=== PATIENT | female | born 1955 | race Caucasian/White ===

== ENCOUNTER 2022-11-24 18:08 | Observation (INO) | payer MEDICARE ==
[2022-11-24] MEDS ORDERED: IPRATROPIUM/ALBUTEROL 3 ML NEB INH STA (18:43)
--- NOTE | 2022-11-24 18:53 | XRAY Report ---
PROCEDURE: Chest 1 View X-Ray INDICATIONS: Cough/SOA TECHNIQUE: One view of the chest was acquired. COMPARISON: None. FINDINGS: Hyperexpanded and emphysematous lungs with apical pleural parenchymal scarring. No focal consolidatio n. No pleural effusion or pneumothorax. Normal heart size. IMPRESSION: No acute finding. Reviewed by: Keanu Benton MD on 11/24/2022 6:51 PM [facility] Approved by: Keanu Benton MD on 11/24/2022 6:51 PM [facility] Station ID: [id number]
--- NOTE | 2022-11-24 19:35 | ED Physician Documentation ---
PD HPI DYSPNEA - Stated complaint Stated Complaint: SOA, GREEN MUCUS - Chief complaint Chief Complaint: Resp - History obtained from History obtained from: Patient, Family - History of Present Illness Pain level max: 0 Pain level now: 0 Associated symptoms: Wheezing. No: Fever, Cough, Chest pain / discomfort, Palpitations, Diaphoresis, Bilateral edema - Additional information Additional information: 67-year-old female brought into the emergency department by her family. She has been sick, cough, congestion for the past 1 week. No fevers. Occasional chills. She has a history of COPD, smokes approximately 1/2 pack/day. Does not use oxygen at home. States increased work of breathing today. She states she does not use her inhalers regularly at home and has not been using them. Has become more difficult to smoke recently. Review of Systems Constitutional: denies: Fever, Chills Nose: reports: Rhinorrhea / runny nose. denies: Congestion Cardiac: denies: Chest pain / pressure, Palpitations Respiratory: reports: Dyspnea, Cough, Hemoptysis Skin: denies: Rash Musculoskeletal: denies: Neck pain, Back pain Neurologic: denies: Headache PD PAST MEDICAL HISTORY - Past Medical History Past Medical History: Yes Respiratory: COPD - Allergies Allergies/Adverse Reactions: Allergies Allergy/AdvReac Type Severity Reaction Status Date / Time "Antibiotics" AdvReac Emesis Uncoded 11/24/22 18:26 - Living Situation Living Situation: reports: With family Living Arrangement: reports: At home - Social History Does the pt smoke?: Yes Smoking Status: Current every day smoker - Family History Family history: reports: Non contributory PD ED PE NORMAL - Vitals Vital signs reviewed: Yes - General General: Alert and oriented X 3, No acute distress, Well developed/nourished - HEENT HEENT: PERRL, Moist mucous membranes - Cardiac Cardiac: RRR - Respiratory Respiratory: No respiratory distress, Other (Diminished breath sounds bilaterally, wheeze bilaterally) - Abdomen Abdomen: Soft, Non tender, Non distended - Derm Derm: Warm and dry - Extremities Extremities: No edema, No calf tenderness / cord - Neuro Neuro: Alert and oriented X 3 - Psych Psych: Normal mood, Normal affect Results - Vitals Vitals: Vital Signs - 24 hr 11/24/22 11/24/22 11/24/22 18:21 18:45 18:56 Temperature 36.4 C L Heart Rate 99 96 Respiratory 20 26 H Rate Blood Pressure 144/69 H 172/94 H O2 Saturation 86 L 82 L 99 If not protocol 4 : Oxygen Flow, liters/minute 11/24/22 11/24/22 11/24/22 19:26 19:28 19:30 Temperature Heart Rate 78 96 93 Respiratory 21 18 21 Rate Blood Pressure 142/90 H 158/83 H O2 Saturation 98 98 If not protocol 2 4 : Oxygen Flow, liters/minute 11/24/22 11/24/22 11/24/22 20:00 20:30 20:48 Temperature Heart Rate 94 83 89 Respiratory 20 20 19 Rate Blood Pressure 154/92 H 134/75 H O2 Saturation 98 97 If not protocol 4 4 : Oxygen Flow, liters/minute 11/24/22 11/24/22 21:00 21:30 Temperature Heart Rate 98 86 Respiratory 18 20 Rate Blood Pressure 136/79 H 154/90 H O2 Saturation 94 97 If not protocol 4 5 : Oxygen Flow, liters/minute Oxygen O2 Source Nasal cannula Oxygen Flow Rate 4 - Labs Labs: Laboratory Tests 11/24/22 11/24/22 11/24/22 18:29 18:55 18:55 WBC 9.0 RBC 4.51 Hgb 14.4 Hct 44.0 MCV 97.6 MCH 31.9 H MCHC 32.7 RDW 12.1 Plt Count 242 MPV 11.0 H Neut # (Auto) 7.7 H Lymph # (Auto) 0.7 L [place] # (Auto) 0.5 Eos # (Auto) 0.0 Baso # (Auto) 0.0 Absolute Nucleated RBC 0.00 Nucleated RBC % 0.0 Sodium 134 L Potassium 3.9 Chloride 92 L Carbon Dioxide 30 Anion Gap 12.0 BUN 16 Creatinine 0.5 Estimated GFR (MDRD) 122 Glucose 115 H Calcium 9.5 Nasal Adenovirus (PCR) NOT DETECTED Nasal B. parapertussis DNA (PCR) NOT DETECTED Nasal Coronavir 229E PCR NOT DETECTED Nasal Coronavir HKU1 PCR NOT DETECTED Nasal Coronavir NL63 PCR NOT DETECTED Nasal Coronavir OC43 PCR NOT DETECTED Nasal Enterovir/Rhinovir PCR NOT DETECTED Nasal Influenza B PCR NOT DETECTED Nasal Influenza A PCR NOT DETECTED Nasal Parainfluen 1 PCR NOT DETECTED Nasal Parainfluen 2 PCR NOT DETECTED Nasal Parainfluen 3 PCR NOT DETECTED Nasal Parainfluen 4 PCR NOT DETECTED Nasal RSV (PCR) NOT DETECTED Nasal B.pertussis DNA PCR NOT DETECTED Nasal C.pneumoniae (PCR) NOT DETECTED Roe Human Metapneumo PCR NOT DETECTED Nasal M.pneumoniae (PCR) NOT DETECTED Nasal SARS-CoV-2 (PCR) DETECTED A - Rads (name of study) Chest x-ray Radiology: Final report received, See rad report PD Medical Decision Making - ED course Complexity details: reviewed results, re-evaluated patient, considered differential, d/w patient, d/w family Reviewed Lab Results: CBC does not show any significant abnormalities. Chemistry shows a mildly low sodium, mildly low chloride. Her respiratory PCR is positive for COVID, negative for other findings. ED course: 67-year-old female who has COPD, rarely uses her inhaler. Presents with dyspnea and cough, positive for COVID. She is found to be hypoxic. She has been sick for over 1 week. She was given prednisone and nebulizer treatments. She is still hypoxic, with any movement off of oxygen she drops to 82 to 85% on room air. The patient is maintained on 4 L of oxygen at approximately 93 to 94%. The patient would be admitted to the hospital, but there are no beds available currently, therefore she will be boarded in the emergency department until an inpatient bed becomes available. No indication for antibiotics at this time. Patient signed out to the [facility] emergency department physician. Departure - Departure Disposition: 66 [facility] DC/Xfer Clinical Impression: COPD exacerbation, COVID, Hypoxia Condition: Stable
[2022-11-24] MEDS ORDERED: predniSONE 20 MG TABLET PO STA (19:54)
[2022-11-24 20:04] LABS: B. PARAPERTUSSIS- RESP PCR PAN NOT DETECTED; B. PERTUSSIS- RESP PCR PANEL NOT DETECTED; C. PNEUMONIAE- RESP PCR PANEL NOT DETECTED; CORONAVIRUS 229E-RESP PCR NOT DETECTED; CORONAVIRUS HKU1-RESP PCR NOT DETECTED; CORONAVIRUS NL63-RESP PCR NOT DETECTED; CORONAVIRUS OC43-RESP PCR NOT DETECTED; HUMAN METAPNEUMOVIRUS NOT DETECTED; INFLUENZA A- RESP PCR PANEL NOT DETECTED; INFLUENZA B - RESP PCR PANEL NOT DETECTED; M. PNEUMONIAE- RESP PCR PANEL NOT DETECTED; PARAINFLUENZA VIRUS 1 NOT DETECTED; PARAINFLUENZA VIRUS 2 NOT DETECTED; PARAINFLUENZA VIRUS 3 NOT DETECTED; PARAINFLUENZA VIRUS 4 NOT DETECTED; RHINOVIRUS/ENTEROVIRUS NOT DETECTED; RSV- RESP PCR PANEL NOT DETECTED; SARS-CoV-2 -RESP PCR PANEL DETECTED
[2022-11-24 20:05] LABS: BASOPHILS % (AUTO) 0.3 %; EOSINOPHILS % (AUTO) 0.1 %; HGB - HEMOGLOBIN 14.4 g/dL (12.0-16.0); LYMPHOCYTES # (AUTO) 0.7 10^3/uL (1.5-3.5); LYMPHOCYTES % (AUTO) 7.4 %; MEAN CORPUSCULAR HEMOGLOBIN 31.9 pg (27.0-31.0); MEAN CORPUSCULAR HGB CONC 32.7 g/dL (32.0-36.0); MEAN CORPUSCULAR VOLUME 97.6 fL (81.0-99.0); MONOCYTES # (AUTO) 0.5 10^3/uL (0.0-1.0); MONOCYTES % (AUTO) 5.9 %; NEUTROPHILS # (AUTO) 7.7 10^3/uL (1.5-6.6); NEUTROPHILS % (AUTO) 85.9 %; PLT - PLATELET COUNT 242 10^3/uL (130-450); RED BLOOD COUNT 4.51 10^6/uL (4.20-5.40); RED CELL DISTRIBUTION WIDTH 12.1 % (12.0-15.0)
[2022-11-24 20:11] LABS: CALCIUM 9.5 mg/dL (8.5-10.3); CREATININE 0.5 mg/dL (0.4-1.0); POTASSIUM 3.9 mmol/L (3.5-5.0)
[2022-11-24] MEDS ORDERED: ALBUTEROL NEB 2.5 MG/3 ML INH STA (20:25)
[2022-11-25] MEDS ORDERED: SODIUM CHLORIDE FLUSH 0.9% 10 ML SYRINGE IVP PRN (11:36)
[2022-11-25] MEDS ORDERED: oxyCODONE 5 MG TABLET PO PRN (11:36)
[2022-11-25] MEDS ORDERED: ONDANSETRON 4 MG/2 ML VIAL IVP PRN (11:36)
[2022-11-25] MEDS ORDERED: ACETAMINOPHEN 325 MG TABLET PO PRN (11:36)
[2022-11-25] MEDS ORDERED: ONDANSETRON ODT 4 MG TABLET TL PRN (11:36)
[2022-11-25] MEDS ORDERED: CHERRY SYRUP 10 ML UDC PO ONE (11:38)
[2022-11-25] MEDS ORDERED: IPRATROPIUM/ALBUTEROL 3 ML NEB INH PRN (11:38)
--- NOTE | 2022-11-25 11:41 | HISTORY & PHYSICAL EXAMINATION ---
Chief Complaint - Chief Complaint Chief Complaint: Shortness of breath History of Present Illness - Admitted From Admitted From:: home - History Obtained From Records Reviewed: [facility] History obtained from: patient and son at the bedside Exam Limitations: none - History of Present Illness HPI Comment/Other: 67-year-old white female who is a smoker and has a history of COPD. She has smoked since she was a teenager in high school. Usually half a pack per day. 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 She regards her self is healthy ev en though she slowed down significantly over the last few years. She has a history of pneumonia a few years ago, and that the only time she can remember being sick from her lungs. Her doctor gave her antibiotics and a handheld inhaler. She does not take oxygen on a regular basis. Nor does she take a handheld inhaler on a regular basis. She does not remember being told that she had emphysema. Her primary care provider has not done pulmonary function studies to quantify the severity of illness.She is able to dress herself, feed herself. But she no longer cleans her own home. It is too taxing. She is able to walk down the street and back and she will do that several times a day to exercise her self but it is a short distance on flat ground. If it were on a hill, she couldn't do it. Starting about 3 weeks ago she felt like she was "coming down with something". Unusual fatigue. Lack of energy. But no fever, no chills, no change in cough or daily phlegm. No sore throat, no runny nose. Yesterday night, she presented to the ER with shortness of breath that is worsening over the last few days as well as a productive cough with green phlegm. She came in by private vehicle and was seen in the emergency room with a temperature of 36.4, heart rate 99, blood pressure 144/69. Respirations 20 and she is 86% on room air. She was evaluated by the ER provider and found that she had COPD exacerbation with positive COVID status. Her chest x-ray has no acute findings. She is h yperexpanded with emphysematous lungs and apical pleural scarring. Overnight in the emergency room, she required 4 L nasal cannula. This morning she is down to 2 L nasal cannula. We did not have any bed availability do to staffing shortage, and the patient was in the emergency room overnight. She has received prednisone 40 mg p.o. in the ER. And she is received DuoNeb once, and albuterol once. She feels like she is improved but is worried about the new hypoxemia. She gets short of breath with exertion. But she describes that it is a chronic problem. Cough is a little bit better and she is producing less phlegm. As such I will be placing the patient in observation status. I have discussed the case at length with the ER provider on today. I am hoping to stabilize her nebulizer status, oxygen status, and be able to send her home. With COVID- positive status I will give her paxlovid. She is amenable to that. Son is at the bedside and endorses her story. 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 Dad in his late 40s or early 50s of complications of chronic alcohol abuse. Sister is alive, well, and healthy without any major medical issues. 1 son is healthy, no major medical issues and they live together Living arrangement: At home Living Situation: With family Social History Notes: Smoker of 1/2 pack/day since her teen years. She has no history of alcohol abuse. No history of recreational substance abuse. She lives in her own home with her son. - POLST Patient has POLST: No POLST Status: Full Code Meds/Allgy - Home Medications Home Medications: Ambulatory Orders Medication Instructions Recorded Confirmed Acetaminophen [Tylenol] 500 mg PO Q8HR 11/25/22 11/25/22 Albuterol Sulf [Ventolin Hfa 1 - 2 puffs INH Q4HR PRN #18 gm 11/25/22 Inhaler] Nirmatrelvir/Ritonavir [Paxlovid 1 each PO UD #1 packet 11/25/22 150-100 mg Pack (Eua)] dexAMETHasone [Decadron] 6 mg PO 0800 9 Days #13.5 tablet 11/25/22 - Allergies Allergies/Adverse Reactions: Allergies Allergy/AdvReac Type Severity Reaction Status Date / Time "Antibiotics" AdvReac Emesis Uncoded 11/24/22 18:26 Review of Systems - Constitutional Constitutional: reports: Fatigue, Malaise, Weakness, Poor appetite. denies: Night sweats, Weight gain, Weight loss - Eyes Eyes: reports: Blurred vision, Vision loss. denies: Pain, Irritation, Amaurosis, Corrective lenses - Ears, Nose & Throat Ears, Nose & Throat: reports: Hearing loss, Nasal obstruction, Nasal congestion, Postnasal drainage. denies: Hearing aids, Tinnitus, Vertigo - Cardiovascular Cariovascular: reports: Exertional dyspnea, Decr. exercise tolerance. denies: Irregular heart rate, Palpitations, Chest pain, Edema, Lightheadedness, Syncope - Respiratory Respiratory: reports: Cough, Sputum production, Wheezing, SOB at rest, SOB with exertion. denies: Snoring, Hemoptysis, Orthopnea - Gastrointestinal Gastrointestinal: reports: Abdominal distention (Chronic if she eats the wrong thing. Associated with her celiac disease.). denies: Abdominal pain, Constipation, Diarrhea, Change in bowel habits - Genitourinary Genitourinary: denies: Dysuria, Frequency, Urgency, Hematuria - Musculoskeletal Musculoskeletal: reports: Back pain, Stiffness, Joint pain. denies: Muscle jonathan n, Limited range of motion, Muscle weakness, Gout - Integumentary Integumentary: denies: Rash, Pruritis, Lesions, Dryness - Neurological Neurological: denies: General weakness, Focal weakness, Headache, Dizziness, Memory problems, Pre-existing deficit, Abnormal gait, Seizures, Incoordination - Psychiatric Psychiatric: denies: Depression, Anxiety, Suicidal, Hallucinations - Endocrine Endocrine: reports: Intolerance to cold. denies: Polyuria, Polydypsia, Polyphagia - Hematologic/Lymphatic Hematologic/Lymphatic: denies: Anemia, Bruising, Petechiae, Blood clots Prior Level of Functionality: She is not driving recently but more because her car is old and she is afraid is going to breakdown. She cannot clean her house because she does not have the endurance to do it. But she dresses her self, feed herself, does her own laundry. Her son does the rest of the stuff in the house. She does not have any durable medical equipment Exam - Vital Signs Reviewed Vital Signs: Yes Vital Signs: Vital Signs x48h Pulse Resp BP Pulse Ox O2 Flow Rate 11/25/22 11:00 90 20 141/76 H 95 11/25/22 10:55 21 88 L 11/25/22 10:50 84 L 11/25/22 10:30 101 H 19 126/77 91 L 11/25/22 10:00 100 23 149/79 H 91 L 2 11/25/22 09:30 65 12 111/71 99 2 11/25/22 09:00 66 12 120/109 H 100 2 11/25/22 08:30 66 12 119/80 99 2 11/25/22 08:00 66 12 104/64 98 2 11/25/22 07:30 67 12 115/64 98 2 11/25/22 06:37 66 13 125/67 99 3 11/25/22 05:48 92 20 137/76 H 96 3 11/25/22 04:52 72 15 124/71 99 3 11/25/22 04:00 71 15 143/81 H 98 3 - Physical Exam General Appearance: positive: Alert, Mild distress (respiratory with pursed lip breathing and tachypnea if she gets agitated, she really doesn't want to be here), Other (thin, reduced muscle mass, pursed lip breathing, well groomed) Eyes Bilateral: positive: PERRL, EOMI ENT: positive: No signs of dehydration Neck: positive: No JVD, Lymphadenopathy (R) (shotty), Lymphadenopathy (L) (shotty). negative: Stiff neck Respiratory: positive: Wheezes, Other (At rest, comfortable. When she starts speaking to me to answer questions, becomes mildly tachypneic, and pursed lip breathing increases. She is tripoding) Cardiovascular: positive: Regular rate & rhythm, Systolic murmur, Other (She has a faint right ventricular lift). negative: Gallop/S4, Friction rub Peripheral Pulses: positive: 1+ Abdomen: positive: Non-tender, No organomegaly, Nml bowel sounds, No distention Skin: positive: Warm, Dry, Other (The palms of her hand and fingertips have rubor and plethora with clubbing of her fingernails) Extremities: positive: Non-tender, Full ROM Neurologic/Psychiatric: positive: Oriented x3, CN's nml (2-12) (Mildly to moderately deaf. The mask in place for me really inhibits her hearing me), Motor nml Sepsis Event Note (H) - Evaluation Current Stage of Sepsis: Ruled out Conclusion/Plan - Problem List (1) COPD exacerbation Conclusion/Plan: She appears to have compensated COPD in the long run. There is been a subtle worsening in her description over the last few months if not year. But she was able to walk her usual exercise without up till about 3 weeks ago. There is been a sudden decompensation in the last few days and I would think that it was from COVID-positive status. She has minimal URI symptomatology, and no infiltrate on chest x-ray. She does not take long-acting bronchodilators much less short acting bronchodilators. At this time I think her sudden deteri oration is most likely due to to COVID infection. She describes a well compensated status prior to this and I am anticipating she will go back to that status when she is through this acute illness. Plan: Observation status Start with simple nebulizers. I hope to continue those in the outpatient s etting with hand-held nebulizers Decadron will be given for 10 days to help with COPD as well as COVID status I would ask her primary care provider to order pulmonary function studies to quantify the disease status. That is of course assuming she even wants intervention or treatment. That can be discussed with her provider as well. I have asked her to stop smoking (2) COVID Conclusion/Plan: While she would like to receive nebulizers while in the hospital, and is willing to do steroids, she does not know if she will stay much longer than today. She is already feeling better and having less and less oxygen need. However she seems to have plateaued at 2 L. She is amenable to starting outpatient COVID treatment with paxlovid. I will also add the Decadron as mentioned above. Later this afternoon, if oxygen requirements remain stable, she will be discharged home. (3) Hypoxia Conclusion/Plan: Right now she is stable on 2 L nasal cannula. At discharge, if she is still hypoxic, I would recommend she go home on oxygen. She is amenable to that and is actually asking us to go home with therapy rather than stay in the hospital. I will ask for oxygen desat study. - Lab Results Lab results reviewed: Yes Fish Bones: 11/24/22 18:55 11/24/22 18:55 - Diagnostic Imaging Results Diagnostic Imaging Results: positive: Final report reviewed Diagnostic Imaging Results Comments: Chest x-ray is with hyperexpanded and emphysematous lungs with apical pleural- parenchymal scarring, no focal consolidation, no pleural effusion, no pneumothorax. Normal heart size Core Measures - Anticipated LOS I expect patient to be DC'd or transferred within 96 hours.: Yes - DVT/VTE - Prophylaxis VTE/DVT Device ordered at admit?: No Not Ordered - Low Risk: Very low risk VTE/DVT Prophylaxis med ordered at admit?: No Not Ordered - Medical Reason: Not indicated
--- NOTE | 2022-11-25 11:51 | ED Physician Documentation ---
ED Addendum - Addendum Addendum: Patient was signed out by overnight physician. Has tested positive for COVID and is requiring oxygen. Does have COPD.Plan to reevaluate this morning to see if we can wean the oxygen requirements. 1050 - Patient is still requiring oxygen and has desatted to 85% on room air. Discussed with Dr. Rodriguez with the hospitalist service who will see the patient. May be able to discharge home with home oxygen. Departure - Departure Disposition: ED Place in Observation Clinical Impression: COPD exacerbation, COVID, Hypoxia Condition: Stable
[2022-11-25] MEDS ORDERED: DEXAMETHASONE 10 MG/ML VIAL PO SCH (12:00)
--- NOTE | 2022-11-25 12:03 | Discharge Plan ---
Discharge Plan Problem Reviewed?: Yes Disposition: Home, Self Care Condition: Fair Prescriptions: Albuterol Sulf [Ventolin Hfa Inhaler] 1 - 2 puffs INH Q4HR PRN #18 gm PRN Reason: Shortness Of Air/Wheezing dexAMETHasone [Decadron] 6 mg PO 0800 9 Days #13.5 tablet Nirmatrelvir/Ritonavir [Paxlovid 150-100 mg Pack (Eua)] 1 each PO UD #1 packet Diet: Regular Activity Restrictions: Activity as Tolerated Shower Restrictions: No Driving Restrictions: Yes (no driving ) Health Concerns: You are a half a pack per day cigarette smoker that started smoking in your high school life. As time is gone on you have developed emphysema. You have physically slowed down somewhat in the last year or so but you are still able to take care of your self. 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 You do have some shortness of breath and some coughing. 3 weeks ago you became more short of breath and had increasing cough. And in the last few days it is enough that you came to the emergency room. Your chest x-ray does not have pneumonia. But it does have severe changes of emphysema. You do need oxygen because your oxygen was low. And you do have COVID-positive status. After giving you inhaled bronchodilators to help you breathe, and some oxygen you feel stable enough to go home, you woul d like to go home with oxygen. And we will continue to give you therapy for COVID with pills that you can take at home. Plan of Treatment: 1. Oxygen by nasal cannula tubing to 2 L/min. Because of your emphysema, we do not know if this is something that you will need indefinitely or that you can come off. Once you stop feeling ill from COVID, and have completed your th erapy, please see your primary care provider in follow-up to see if you still need oxygen. 2. Please ask your primary care provider to consider doing something called pulmonary function studies with a diffusion capacity to see and quantify how severe your emphysema is. 3. Please stop smoking. Over the course of your life it has given you emphysema. 4. Please ask your primary care provider if you are a candidate for long-term bronchodilator therapy with an inhaler that you would take once a day. 5. You have been sent home with 2 medications for COVID. 1 is a preset pack of pills called paxlovid. Just follow the instructions on the package. You will take this for 5 days. The second is a steroid pill that helps reduce inflammation from COVID. You will take the steroid pill (1-1/2 tablets) once a day for total of 10 days. You already received 1 dose in the emergency room and you will take the next 9 days at home. Care Goals: To understand more about emphysema and see if she can feel better. She is interested in trying home cardiopulmonary rehab. Assessment: Patient is alert, oriented. She makes her own decisions. Her son is in the room with her as her advocate and endorses that mom is still in charge of her health. No Smoking: If you smoke, Please STOP! Call for help. Follow-up with: Александр Mathews ND [Primary Care Provider] -
[2022-11-25 15:22] VITALS: BP 148/75
[2022-11-25] MEDS ORDERED: SODIUM CHLORIDE FLUSH 0.9% 10 ML SYRINGE IVP SCH (17:00)
--- NOTE | 2022-11-25 18:42 | DISCHARGE SUMMARY ---
Discharge Summary Admit Date: 11/25/22 Discharge Date: 11/25/22 Discharging Provider: Jess Rodriguez MD Primary Care Provider: Александр Mathews MD Code Status: Attempt Resuscitation Condition at Discharge: Fair - DIAGNOSES Discharge Diagnoses with Status of Each Condition: 1. COPD exacerbation 2. COVID 3. Hypoxia - HPI History of Present Illness: Patient in hospital less than 24 hours. Please see dictated history and physical - HOSPITAL COURSE Hospital Course: She quickly turned the corner. Oxygen level came down to 2 L nasal cannula to saturate adequately. Her shortness of breath and wheezing improved. She did not want to stay in the hospital to have her oxygen level requirement come down to room air saturations that were adequate. As such we negotiated that she could go home on paxlovid and Decadron. I have started her on oxygen 2 L nasal cannula after desat study. At room air, at rest she was 84%. She required 2 L nasal cannula to bring O2 sat up to 92% at rest. With ambulation, walking 20 feet, she required 4 L to maintain O2 sat at 94%. As such she is being sent claudine e with oxygen for COPD with hypoxia until she recovers from COVID. I am hoping that she does not need oxygen permanently. She is being sent home with Paxlovid and Decadron. At discharge she is an alert oriented lady who is still tripoding as she sits up to speak to me. Heart rate 85. Blood pressure 148/75. 19 respiratory rate. 96% on 2 L. She appears very thin, nearly cachectic. Pursed lip breathing. Rubor of hands. Clubbing of fingertips. Prolonged and exhalation but no wheezing. A regular rate and rhythm. Extremities without edema. I have asked her to see her primary care provider in follow-up. I am recommending that she get pulmonary function studies with DLCO to quantify the severity of her emphysema. It is unclear if she may have baseline hypoxia that worsened with COVID. I have also asked her to start establishing some care goals. In the face of a diagnosis of emphysema what are her goals with treatment, aggressiveness of treatment, advance care planning, and future caregiving needs. - ALLERGIES Allergies/Adverse Reactions: Allergies Allergy/AdvReac Type Severity Reaction Status Date / Time "Antibiotics" AdvReac Emesis Uncoded 11/24/22 18:26 - MEDICATIONS Home Medications: Ambulatory Orders Medication Instructions Recorded Confirmed Acetaminophen [Tylenol] 500 mg PO Q8HR 11/25/22 11/25/22 Albuterol Sulf [Ventolin Hfa 1 - 2 puffs INH Q4HR PRN #18 gm 11/25/22 Inhaler] Nirmatrelvir/Ritonavir [Paxlovid 1 each PO UD #1 packet 11/25/22 150-100 mg Pack (Eua)] dexAMETHasone [Decadron] 6 mg PO 0800 9 Days #13.5 tablet 11/25/22 - LABS Result Diagrams: 11/24/22 18:55 11/24/22 18:55 - SEPSIS Current Stage of Sepsis: Ruled out
[2022-11-26] MEDS ORDERED: CHERRY SYRUP 10 ML UDC PO SCH (09:00)
== END 2022-11-25 15:23 | disposition home or self-care (01) ==
LOC: ED 18:08 → OBS 11-25 11:36
PROVIDERS: ADMIT Specialist; ATTEND Specialist
DX: J43.9 Emphysema, unspecified (principal); U07.1 COVID-19; R09.02 Hypoxemia; Z20.822 Contact with and (suspected) exposure to COVID-19; F17.210 Nicotine dependence, cigarettes, uncomplicated
CPT/HCPCS: 36415; 71045; 80048; 85025; 87633; 94640; 94761; 99284; 99285; A9270; G0378; J7512

== ENCOUNTER 2023-10-11 21:24 | Emergency (ER) | payer MEDICARE ==
[2023-10-11] MEDS ORDERED: BUDESONIDE 0.5 MG/2 ML NEB INH STA (22:03)
--- NOTE | 2023-10-11 22:04 | ED Physician Documentation ---
PD HPI DYSPNEA - Stated complaint Stated Complaint: SOA - Chief complaint Chief Complaint: Resp - History obtained from History obtained from: Patient, Family (son) - Additional information Additional information: 68yF with pmh anxiety, copd, daily smoker, p/w soa since having covid in november of this year. patient states she saw her pcp a couple weeks ago and had antibiotics prescribed for productive cough. she is not currently having fever or hemoptysis but does endorse intermittent cough, increased stress and some soa. she had a steroid inhaler prescribed by her doctor today but [facility] can't fill it till tomorrow which causes her anxiety. 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 HEENT: Chronic vision loss, Chronic hearing loss Musculoskeletal: Osteoarthritis, Chronic back pain, Other - Past Surgical History Past Surgical History: No - Present Medications Home Medications: Ambulatory Orders Medication Instructions Recorded Confirmed Acetaminophen [Tylenol] 500 mg PO Q8HR 11/25/22 11/25/22 Albuterol Sulf [Ventolin Hfa 1 - 2 puffs INH Q4HR PRN #18 gm 11/25/22 Inhaler] Nirmatrelvir/Ritonavir [Paxlovid 1 each PO UD #1 packet 11/25/22 150-100 mg Pack (Eua)] dexAMETHasone [Decadron] 6 mg PO 0800 9 Days #13.5 tablet 11/25/22 - Allergies Allergies/Adverse Reactions: Allergies Allergy/AdvReac Type Severity Reaction Status Date / Time "Antibiotics" AdvReac Emesis Uncoded 10/11/23 21:32 - Social History Does the pt smoke?: Yes Smoking Status: Current every day smoker Does the pt drink ETOH?: No Does the pt have substance abuse?: No - Immunizations Immunizations are current?: Yes - POLST Patient has POLST: No POLST Status: Full Code PD ED PE NORMAL - Vitals Vital signs reviewed: Yes - General General: Alert and oriented X 3, No acute distress, Well developed/nourished - HEENT HEENT: Atraumatic, PERRL, EOMI, Moist mucous membranes, Pharynx benign - Cardiac Cardiac: RRR - Respiratory Respiratory: No respiratory distress, Clear bilaterally, Other (no increased wob) - Abdomen Abdomen: Non tender, Non distended - Derm Derm: Normal color, Warm and dry - Psych Psych: Other (anxious mood and affect) Results - Vitals Vitals: Vital Signs - 24 hr 10/11/23 21:32 Temperature 36.5 C Heart Rate 90 Respiratory 16 Rate Blood Pressure 158/83 H O2 Saturation 94 Oxygen O2 Source Room air PD Medical Decision Making - ED course ED course: 68yF with pmh copd, anxiety, smoker, presents for medical evaluation after unable to fill her steroid inhaler rx today. she is requesting a dose of inhaled steroid. Her lung sounds are clear and she is well appearing aside from intermittent mild nonproductive cough. RT administered budesonide inhaler to good effect. plan to f/u with her pcp next week. Her rx should be available at [facility] tomorrow . return precautions discussed and smoking cessation counseling provided. Departure - Departure Disposition: 01 Home, Self Care Clinical Impression: COPD (chronic obstructive pulmonary disease) Condition: Stable Instructions: COPD Dc Comments: You were seen in the emergency department for medical evaluation and steroid inhaler administration. 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 Please follow-up with your primary care provider and return to the emergency department if you have any new or worsening symptoms or other concerns. Forms: PCP List
[2023-10-11 22:39] VITALS: BP 137/90
[2023-10-11 23:14] VITALS: O2SAT 98
== END 2023-10-11 23:07 | disposition home or self-care (01) ==
LOC: ED 21:24
DX: J44.9 Chronic obstructive pulmonary disease, unspecified (principal); F17.200 Nicotine dependence, unspecified, uncomplicated
CPT/HCPCS: 94640; 99283; J7626

== ENCOUNTER 2023-11-05 16:16 | Emergency (ER) | payer MEDICARE ==
[2023-11-05 16:44] LABS: BASOPHILS % (AUTO) 0.6 %; EOSINOPHILS % (AUTO) 0.6 %; HCT - HEMATOCRIT 42.3 % (37.0-47.0); HGB - HEMOGLOBIN 13.7 g/dL (12.0-16.0); LYMPHOCYTES % (AUTO) 15.1 %; MEAN CORPUSCULAR HEMOGLOBIN 32.1 pg (27.0-31.0); MEAN CORPUSCULAR HGB CONC 32.4 g/dL (32.0-36.0); MEAN CORPUSCULAR VOLUME 99.1 fL (81.0-99.0); MEAN PLATELET VOLUME 9.6 fL (7.9-10.8); MONOCYTES # (AUTO) 0.5 10^3/uL (0.0-1.0); MONOCYTES % (AUTO) 8.3 %; NEUTROPHILS # (AUTO) 4.7 10^3/uL (1.5-6.6); NEUTROPHILS % (AUTO) 75.2 %; PLT - PLATELET COUNT 260 10^3/uL (130-450); RED BLOOD COUNT 4.27 10^6/uL (4.20-5.40); RED CELL DISTRIBUTION WIDTH 12.4 % (12.0-15.0); WHITE BLOOD COUNT 6.3 x10^3/uL (4.8-10.8)
--- NOTE | 2023-11-05 16:48 | ED Physician Documentation ---
PD HPI CHEST PAIN - Stated complaint Stated Complaint: CHEST PX/ANXIETY - Chief complaint Chief Complaint: Cardiac - History obtained from History obtained from: Patient - Additional information Additional information: 68-year-old female with history of COPD and anxiety presents with chest tightness and reported anxiety. She states symptoms started this morning when she went outside and it was "very cold" and since then she has had chest tightness and mild shortness of breath. It is not worse with exertion. She has not had any increased cough, no sputum production, no fever or chills. She den ies any lower extremity swelling or difficulty laying flat. She states she does not have chest pain but just feels like her lungs are tight. She reports a lot of anxiety, and Has a longstanding history of anxiety, previously was on paxlovid for quite a while and had a difficult time titrating off that it is unclear why she stopped it she has not been on any and anxiety medicine for quite some time. She has taken benzodiazepines in the past and states that she did not like the way that they made her feel, she felt somewhat more anxious after taking them. She is not currently seeing a counselor or therapist but her family member has recently arranged for her to see 1. She also does not have a primary care provider though does go and see a teletypesetter who apparently has been trying to manage her COPD. The patient does not have any prescription coverage however so cannot afford anything other than albuterol for her COPD though other MDIs have been prescribed in the past. She does have long history of smoking and current smokes 1ppd. Review of Systems Constitutional: reports: Reviewed and negative Eyes: reports: Reviewed and negative Ears: reports: Reviewed and negative Nose: reports: Reviewed and negative Throat: reports: Reviewed and negative Cardiac: reports: Reviewed and negative Respiratory: reports: Dyspnea, Cough, Wheezing GI: reports: Reviewed and negative : reports: Reviewed and negative Skin: reports: Reviewed and negative Musculoskeletal: reports: Reviewed and negative Neurologic: reports: Reviewed and negative Psychiatric: reports: Anxiety. 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 HEENT: Chronic vision loss, Chronic hearing loss Psych: Anxiety Musculoskeletal: Osteoarthritis, Chronic back pain, Other Derm: None - Past Surgical History Past Surgical History: Yes HEENT: Tonsil/Adenoidectomy - Present Medications Home Medications: Ambulatory Orders Medication Instructions Recorded Confirmed Acetaminophen [Tylenol] 500 mg PO Q8HR 11/25/22 11/25/22 Albuterol Sulf [Ventolin Hfa 1 - 2 puffs INH Q4HR PRN #18 gm 11/25/22 Inhaler] Nirmatrelvir/Ritonavir [Paxlovid 1 each PO UD #1 packet 11/25/22 150-100 mg Pack (Eua)] dexAMETHasone [Decadron] 6 mg PO 0800 9 Days #13.5 tablet 11/25/22 Tiotropium [place] [Spiriva 1 puffs INH DAILY 30 Days #30 each 11/05/23 Handihaler] hydrOXYzine pamoate [Hydroxyzine 25 mg PO Q8H PRN #30 cap 11/05/23 Pamoate] - Allergies Allergies/Adverse Reactions: Allergies Allergy/AdvReac Type Severity Reaction Status Date / Time "Antibiotics" AdvReac Emesis Uncoded 11/05/23 16:20 - Social History Does the pt smoke?: Yes Smoking Status: Current every day smoker Does the pt drink ETOH?: No Does the pt have substance abuse?: No - Immunizations Immunizations are current?: Yes - POLST Patient has POLST: No POLST Status: Full Code PD ED PE NORMAL - Vitals Vital signs reviewed: Yes - General General: Alert and oriented X 3, No acute distress, Well developed/nourished - HEENT HEENT: Atraumatic, Moist mucous membranes - Neck Neck: Supple, no meningeal sign, No adenopathy - Cardiac Cardiac: RRR, No murmur - Respiratory Respiratory: No respiratory distress, Other (few minor exp wheezes w/ prolonged exp phase) - Abdomen Abdomen: Normal bowel sounds, Soft, Non tender, Non distended - Derm Derm: Normal color, Warm and dry, No rash - Neuro Neuro: Alert and oriented X 3 Eye Opening: Spontaneous Motor: Obeys Commands Verbal: Oriented GCS Score: 15 - Psych Psych: Normal mood, Other (anxious affect) Results - Vitals Vitals: Vital Signs - 24 hr 11/05/23 11/05/23 11/05/23 16:20 16:40 16:53 Temperature 36.4 C L 36.6 C Heart Rate 92 91 86 Respiratory 20 15 22 Rate Blood Pressure 139/84 H 148/83 H 148/86 H O2 Saturation 96 98 98 11/05/23 19:07 Temperature 36.5 C Heart Rate 81 Respiratory 26 H Rate Blood Pressure 126/76 O2 Saturation 94 Oxygen O2 Source Room air - EKG (time done) No standard instances EKG releavant findings:: EKG personally interpreted by author of this note. Relevant findings are: Rate: Rate (enter#) (87) Rhythm: NSR [place]: Normal Intervals: Normal SD QRS: LVH Ischemia: Normal ST segments Computer interpretation: Agree with computer - Labs Labs: Laboratory Tests 11/05/23 11/05/23 16:35 16:35 WBC 6.3 RBC 4.27 Hgb 13.7 Hct 42.3 MCV 99.1 H MCH 32.1 H MCHC 32.4 RDW 12.4 Plt Count 260 MPV 9.6 Neut # (Auto) 4.7 Lymph # (Auto) 1.0 L [place] # (Auto) 0.5 Eos # (Auto) 0.0 Baso # (Auto) 0.0 Absolute Nucleated RBC 0.00 Nucleated RBC % 0.0 Sodium 135 Potassium 3.9 Chloride 99 L Carbon Dioxide 30 Anion Gap 6.0 BUN 16 Creatinine 0.6 Estimated GFR (MDRD) 99 Glucose 101 Calcium 9.7 Total Bilirubin 0.4 AST 17 ALT 16 Alkaline Phosphatase 69 Troponin I High Sens 5.3 Total Protein 7.4 Albumin 4.5 Globulin 2.9 Albumin/Globulin Ratio 1.6 Lipase 52 PD Medical Decision Making - ED course Complexity details: reviewed old records, reviewed results, re-evaluated patient, considered differential, d/w patient, d/w family ED course: 68-year-old female presents with chest tightness today as well as patient reported anxiety. She is well-appearing on initial physical exam, lungs have a few scattered expiratory wheezes minor and she is in no respiratory distress. She has a anxious affect but otherwise stable physical exam. Differentials included COPD exacerbation, CHF, ACS, viral URI, anxiety, and less likely PE. Workup today generally reassuring, her labs are stable including high- sensitivity troponin which is negative, her EKG shows no acute ischemic changes, chest x-ray shows possible mild pulmonary edema. I discussed these findings with patient and she was reassured, I do not think at this point she needs any treatment for this possible mild pulmonary edema but have encouraged her to establish primary care and they can do additional workup as outpatient including echocardiogram. She we will continue her as needed albuterol and I have also prescribed Spiriva for maintenance though it is unclear if the patient will be able to get this without any insurance. She is planning to try to get care through a [place] that she belongs to which may open some medical benefits to her so I have strongly urged her to do so to try to get medication insurance. In regards to her anxiety, we had a long discussion about treatment for this and patient does not want to do any benzodiazepines or SSRIs. She did receive 12.5 mg of IV Benadryl here with improvement in this to give an additional 12.5 mg before she left. She did feel like this helped and she did not have any adverse effects with that thus far so I talked to her about trying Hydroxyzine as an outpatient as this may help her sleep and may provide some anxiety relief. She was cautioned on the potential side effects of this medication however. I will discharge her home with this and her COPD medications and she is going to establish care with a counselor in the coming days. I do think she is stable for discharge home and I discussed return precautions if any new or worsening symptoms. Departure - Departure Disposition: 01 Home, Self Care Clinical Impression: Anxiety COPD (chronic obstructive pulmonary disease) Qualifiers: COPD type: unspecified COPD Qualified Code(s): J44.9 - Chronic obstructive pulmonary disease, unspecified Instructions: COPD Dc Prescriptions: hydrOXYzine pamoate [Hydroxyzine Pamoate] 25 mg PO Q8H PRN #30 cap PRN Reason: anxiety or sleep Tiotropium [place] [Spiriva Handihaler] 1 puffs INH DAILY 30 Days #30 each Comments: Chuyita, your labs and ekg today are stable. I think your symptoms are a combination of your COPD and anxiety. Please try to establish a primary care provider to manage your COPD and assist with the management of your anxiety and for routine health maintenance. I think it is a great idea as well for you to see a counselor or mental health provider to help with your anxiety. I have also given you a medication called hydroxyzine which can help with mild anxiety symptoms and can help you sleep. It may make you sleepy so do not use if you are going to drive or leave the home. I have also recommended that you start taking a daily medication for your COPD. I have given you inhaler to use daily and then you use your albuterol only as needed. If this medication is not cost effective, please asked the pharmacist if there are Alternatives and they can call me here tomorrow between the hours of 11 AM and 10 PM to discuss changing the medication. I also would like you to talk with your teletypesetter about methylated forms of magnesium and B vitamins which may help you better absorbed them and improve the management of your anxiety. I do think you should take magnesium and it is okay to start with the type that you have right now. It may give you some GI upset but this typically improves with time. Your x-ray did show some very mild pulmonary edema. This is a common finding on x-rays and does not need immediate treatment in your case but once you establish primary care, they can order an outpatient echocardiogram or an ultrasound of your heart to further evaluate this. If you have worsening symptoms, please return to the ER as needed. Forms: PCP List Discharge Date/Time: 11/05/23 19:08
[2023-11-05 17:00] LABS: TROPONIN I HIGH SENSITIVITY 5.3 ng/L (2.3-14.8)
[2023-11-05 17:02] LABS: ALBUMIN 4.5 g/dL (3.2-5.5); ALBUMIN/GLOBULIN RATIO 1.6 (1.0-2.2); BILIRUBIN,TOTAL 0.4 mg/dL (0.2-1.0); CALCIUM 9.7 mg/dL (8.5-10.3); CREATININE 0.6 mg/dL (0.6-1.3); POTASSIUM 3.9 mmol/L (3.5-4.5); TOTAL PROTEIN 7.4 g/dL (6.4-8.9)
[2023-11-05] MEDS ORDERED: diphenhydrAMINE INJ 50 MG/ML VIAL IVP STA ×2 (17:30→18:29)
--- NOTE | 2023-11-05 17:49 | XRAY Report ---
PROCEDURE: Chest 1V INDICATIONS: Chest Pain TECHNIQUE: One view of the chest was acquired. COMPARISON: 11/24/2022 FINDINGS: Surgical changes and devices: None. Lungs and pleura: No pleural effusions or pneumothorax. Mild generalized interstitial prominence can be seen. Mediastinum: Mediastinal contours appear normal. Heart size is normal. Calcification is seen of th e aortic arch. Bones and chest wall: No suspicious bony lesions. Overlying soft tissues appear unremarkable. IMPRESSION: Mild generalized interstitial prominence is seen, which appears mildly worse on the prior examination . Please consider mild pulmonary edema. Reviewed by: Chester Doss MD on 11/05/2023 4:48 PM [facility] Approved by: Chester Doss MD on 11/05/2023 4:48 PM [facility] Station ID: [id number]
[2023-11-05 19:10] VITALS: BP 126/76; O2SAT 94
== END 2023-11-05 19:08 | disposition home or self-care (01) ==
LOC: ED 16:16
DX: J44.9 Chronic obstructive pulmonary disease, unspecified (principal); F41.9 Anxiety disorder, unspecified; Z79.899 Other long term (current) drug therapy; Z79.51 Long term (current) use of inhaled steroids; F17.200 Nicotine dependence, unspecified, uncomplicated
CPT/HCPCS: 36415; 71045; 80053; 83690; 84484; 85025; 93005; 96374; 96376; 99284; J1200

== ENCOUNTER 2023-11-23 11:00 | Inpatient (IN) | payer MEDICARE ==
[2023-11-23] MEDS ORDERED: cephALEXin 250 MG CAPSULE PO STA (11:34)
[2023-11-23] MEDS ORDERED: IPRATROPIUM/ALBUTEROL 3 ML NEB INH STA (11:34)
[2023-11-23] MEDS ORDERED: predniSONE 20 MG TABLET PO STA (11:34)
--- NOTE | 2023-11-23 11:35 | ED Physician Documentation ---
PD HPI DYSPNEA - Stated complaint Stated Complaint: SOA - Chief complaint Chief Complaint: Resp - History obtained from History obtained from: Patient, Family - Additional information Additional information: 68-year-old woman with oxygen dependent COPD presents with about 4 days of chest congestion and cough without production to the cough and increased shortness of breath without fevers. She is post to be on multiple medications for her COPD but cannot afford them for the most part and just has an albuterol rescue inhaler at home. She is working with [employer] services to try to get her m edications. She denies chest pain. No pedal edema or calf pain other than what is chronic. No heart issues in the past. 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 HEENT: Chronic vision loss, Chronic hearing loss Psych: Anxiety Musculoskeletal: Osteoarthritis, Chronic back pain, Other Derm: None - Past Surgical History Past Surgical History: Yes HEENT: Tonsil/Adenoidectomy - Present Medications Home Medications: Ambulatory Orders Medication Instructions Recorded Confirmed Acetaminophen [Tylenol] 500 mg PO Q8HR 11/25/22 11/25/22 Albuterol Sulf [Ventolin Hfa 1 - 2 puffs INH Q4HR PRN #18 gm 11/25/22 Inhaler] Nirmatrelvir/Ritonavir [Paxlovid 1 each PO UD #1 packet 11/25/22 150-100 mg Pack (Eua)] dexAMETHasone [Decadron] 6 mg PO 0800 9 Days #13.5 tablet 11/25/22 Tiotropium [place] [Spiriva 1 puffs INH DAILY 30 Days #30 each 11/05/23 Handihaler] hydrOXYzine pamoate [Hydroxyzine 25 mg PO Q8H PRN #30 cap 11/05/23 Pamoate] - Allergies Allergies/Adverse Reactions: Allergies Allergy/AdvReac Type Severity Reaction Status Date / Time "Antibiotics" AdvReac Emesis Uncoded 11/23/23 11:17 - Social History Does the pt smoke?: Yes Smoking Status: Current every day smoker Does the pt drink ETOH?: No Does the pt have substance abuse?: No - Immunizations Immunizations are current?: Yes - POLST Patient has POLST: No POLST Status: Full Code PD ED PE NORMAL - Vitals Vital signs reviewed: Yes - General General: Alert and oriented X 3, Other (Mildly anxious and tachypneic) - Cardiac Cardiac: RRR, No murmur - Respiratory Respiratory: Other (Wheezy and rhonchorous throughout without specific focal findings) - Abdomen Abdomen: Normal bowel sounds, Soft, Non tender - Extremities Extremities: No calf tenderness / cord - Neuro Neuro: Alert and oriented X 3, Normal speech Results - Vitals Vitals: Vital Signs - 24 hr 11/23/23 11/23/23 11:13 11:54 Temperature 36.4 C L Heart Rate 93 79 Respiratory 20 17 Rate Blood Pressure 152/82 H O2 Saturation 88 L If not protocol 4 : Oxygen Flow, liters/minute Oxygen O2 Source Nasal cannula Oxygen Flow Rate 2 - Labs Labs: Laboratory Tests 11/23/23 11/23/23 11/23/23 12:24 12:24 12:24 WBC 6.9 RBC 4.51 Hgb 14.4 Hct 44.7 MCV 99.1 H MCH 31.9 H MCHC 32.2 RDW 12.2 Plt Count 269 MPV 9.6 Neut # (Auto) 5.8 Lymph # (Auto) 0.6 L [place] # (Auto) 0.4 Eos # (Auto) 0.0 Baso # (Auto) 0.0 Absolute Nucleated RBC 0.00 Nucleated RBC % 0.0 VBG pH 7.295 L VBG pCO2 56.3 H VBG pO2 27.9 VBG HCO3 26.8 VBG Total CO2 28.5 VBG O2 Saturation 49.5 L VBG Base Excess -0.9 Sodium 131 L Potassium 4.1 Chloride 93 L Carbon Dioxide 31 Anion Gap 7.0 BUN 14 Creatinine 0.5 L Estimated GFR (MDRD) 122 Glucose 116 H Calcium 9.6 Magnesium 1.7 Total Bilirubin 0.4 AST 19 ALT 17 Alkaline Phosphatase 80 Total Protein 7.3 Albumin 4.4 Globulin 2.9 Albumin/Globulin Ratio 1.5 - Rads (name of study) 1v cxr- Small left apical and basal pneumothorax Relevant Findings:: Final report received, EMP independent interpretation of test PD Medical Decision Making - ED course ED course: 68-year-old woman presents with apparent COPD exacerbation with nonproductive cough, wheezing, shortness of breath. No fevers. She was administered steroids, DuoNeb, and Keflex antibiotic note taking that that is the only antibiotic that she has not reacted to in the past. Chest x-ray showing a small left apical pneumothorax, and decision was made to place patient in observation in the hospital for monitoring of this. Unfortunately no beds are available at this time, the hospital is completely full so she is boarding in the emergency department for the time being. She was hypoxic in triage but that was on room air, and she does wear oxygen at home. On 2 L nasal cannula oxygen saturations are acceptable in the low 90s. Departure - Departure Disposition: ED Place in Observation Clinical Impression: COPD exacerbation Pneumothorax Qualifiers: Pneumothorax type: spontaneous, secondary Qualified Code(s): J93.12 - Secondary spontaneous pneumothorax Condition: Serious Forms: PCP List
[2023-11-23 12:33] LABS: BASOPHILS % (AUTO) 0.3 %; EOSINOPHILS % (AUTO) 0.1 %; HCT - HEMATOCRIT 44.7 % (37.0-47.0); HGB - HEMOGLOBIN 14.4 g/dL (12.0-16.0); LYMPHOCYTES # (AUTO) 0.6 10^3/uL (1.5-3.5); MEAN CORPUSCULAR HEMOGLOBIN 31.9 pg (27.0-31.0); MEAN CORPUSCULAR HGB CONC 32.2 g/dL (32.0-36.0); MEAN CORPUSCULAR VOLUME 99.1 fL (81.0-99.0); MEAN PLATELET VOLUME 9.6 fL (7.9-10.8); MONOCYTES # (AUTO) 0.4 10^3/uL (0.0-1.0); MONOCYTES % (AUTO) 5.7 %; NEUTROPHILS # (AUTO) 5.8 10^3/uL (1.5-6.6); NEUTROPHILS % (AUTO) 84.6 %; PLT - PLATELET COUNT 269 10^3/uL (130-450); RED BLOOD COUNT 4.51 10^6/uL (4.20-5.40); RED CELL DISTRIBUTION WIDTH 12.2 % (12.0-15.0); VBG BASE EXCESS -0.9 mmol/L (-2 - +2); VBG HCO3 26.8 mmol/L (23-28); VBG PCO2 56.3 mmHg (41-51); VBG PH 7.295 (7.31-7.41); VBG PO2 27.9 mmHg (25-47); VBG TOTAL CO2 28.5 mmol/L (24-29); WHITE BLOOD COUNT 6.9 x10^3/uL (4.8-10.8)
[2023-11-23 12:34] LABS: VBG OXYGEN SATURATION 49.5 % (60-80)
[2023-11-23 12:56] LABS: ALBUMIN 4.4 g/dL (3.2-5.5); ALBUMIN/GLOBULIN RATIO 1.5 (1.0-2.2); BILIRUBIN,TOTAL 0.4 mg/dL (0.2-1.0); CALCIUM 9.6 mg/dL (8.5-10.3); CREATININE 0.5 mg/dL (0.6-1.3); MAGNESIUM 1.7 mg/dL (1.7-2.3); POTASSIUM 4.1 mmol/L (3.5-4.5); TOTAL PROTEIN 7.3 g/dL (6.4-8.9)
--- NOTE | 2023-11-23 13:02 | XRAY Report ---
PROCEDURE: Chest 1V INDICATIONS: dyspnea TECHNIQUE: One view of the chest was acquired. COMPARISON: X-ray chest 11/05/2023. FINDINGS: Surgical changes and devices: None. Lungs and pleura: Mild to moderate sized left pneumothorax seen in left apex and base. Chronic fibro tic lung changes, interstitial prominence. Mediastinum: Mediastinal contours appear normal. Heart size is top normal in size. Bones and chest wall: No suspicious bony lesions. Overlying soft tissues appear unremarkable. IMPRESSION: New onset left apical and basal [id number] sized pneumothorax Reviewed by: Jj Giron MD on 11/23/2023 1:01 PM PST Approved by: Jj Giron MD on 11/23/2023 1:01 PM PST Station ID: [id number]
[2023-11-23] MEDS ORDERED: IPRATROPIUM/ALBUTEROL 3 ML NEB INH PRN (14:58)
[2023-11-23] MEDS: cephALEXin 250 MG CAPSULE PO SCH ×2 (15:39→17:50)
[2023-11-23] MEDS ORDERED: ONDANSETRON 4 MG/2 ML VIAL IVP STA ×2 (15:43→20:41)
[2023-11-23] MEDS ORDERED: cephALEXin 250 MG CAPSULE PO SCH ×2 (18:00→22:00)
[2023-11-23] MEDS ORDERED: LORazepam 0.5 MG TABLET PO STA ×2 (19:00→20:39)
--- NOTE | 2023-11-23 21:01 | XRAY Report ---
PROCEDURE: Chest 1V INDICATIONS: pneumothorax TECHNIQUE: One view of the chest was acquired. COMPARISON: CXR earlier today at 1134 hours, 11/05/2023. FINDINGS: Surgical changes and devices: None. Lungs and pleura: Moderate left-sided pneumothorax is not significantly changed compared to 1134 james rs. Prominent lung volumes. Possible mild thickening at the left medial apex, unchanged. Emphysematou s or fibrotic change. No pleural effusion. Mediastinum: Mediastinal contours appear unchanged. Heart size is normal. Bones and chest wall: No suspicious bony lesions. Overlying soft tissues appear unremarkable. IMPRESSION: Moderate left pneumothorax is unchanged compared to earlier today. No midline shift is seen. Reviewed by: Gerhard Wang MD on 11/23/2023 9:00 PM PST Approved by: Gerhard Wang MD on 11/23/2023 9:00 PM PST Station ID: [id number]
[2023-11-23] MEDS ORDERED: MORPHINE 2 MG/ML CARPUJECT IVP PRN (21:33)
[2023-11-23] MEDS ORDERED: SODIUM CHLORIDE FLUSH 0.9% 10 ML SYRINGE IVP PRN (21:33)
[2023-11-23] MEDS ORDERED: HYDROcod/ACETAM 5/325 MG TABLET PO PRN (21:33)
--- NOTE | 2023-11-23 21:45 | HISTORY & PHYSICAL EXAMINATION ---
Chief Complaint - Chief Complaint Chief Complaint: SOB, cough and congestion History of Present Illness - Admitted From Admitted From:: Home - History Obtained From Records Reviewed: Yes History obtained from: Patient and her son and review on records Exam Limitations: None - History of Present Illness HPI Comment/Other: 68-year-old woman with oxygen dependent COPD presents with about 4 days of chest congestion and cough without production to the cough and increased shortness of breath without fevers. She is post to be on multiple medications for her COPD but cannot afford them for the most part and just has an albuterol rescue inhaler at home. She is working with [employer] services to try to get her medications. She denies chest pain. No pedal edema or calf pain other than what is chronic. 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 Dad in his late 40s or early 50s of complications of chronic alcohol abuse. Sister is alive, well, and healthy without any major medical issues. 1 son is healthy, no major medical issues and they live together Living Situation: With family Social History Notes: Smoker of 1/2 pack/day since her teen years. She has no history of alcohol abuse. No history of recreational substance abuse. She lives in her own home with her son. - POLST Patient has POLST: No POLST Status: Full Code Meds/Allgy - Home Medications Home Medications: Ambulatory Orders Medication Instructions Recorded Confirmed Acetaminophen [Tylenol] 500 mg PO Q8HR 11/25/22 11/25/22 Albuterol Sulf [Ventolin Hfa 1 - 2 puffs INH Q4HR PRN #18 gm 11/25/22 Inhaler] Tiotropium Egnar [Spiriva 1 puffs INH DAILY 30 Days #30 each 11/05/23 Handihaler] hydrOXYzine pamoate [Hydroxyzine 25 mg PO Q8H PRN #30 cap 11/05/23 Pamoate] - Allergies Allergies/Adverse Reactions: Allergies Allergy/AdvReac Type Severity Reaction Status Date / Time "Antibiotics" AdvReac Emesis Uncoded 11/23/23 11:17 Prior Level of Functionality: Independent with ADL Exam - Vital Signs Vital Signs: Vital Signs x48h Temp Pulse Resp BP Pulse Ox O2 Flow Rate 11/23/23 20:00 92 20 147/76 H 93 2 11/23/23 17:45 36.1 C L 92 18 135/67 H 91 L 2 11/23/23 14:18 36.4 C L 82 20 146/69 H 92 2 - Physical Exam General Appearance: positive: Mild distress Eyes Bilateral: positive: Normal inspection, PERRL, EOMI ENT: positive: ENT inspection nml, Pharynx nml Neck: positive: Thyroid nml Respiratory: positive: Rales, Rhonchi Cardiovascular: positive: Regular rate & rhythm Abdomen: positive: Non-tender, No organomegaly Rectal: positive: Non-tender Skin: positive: No rash Extremities: positive: Non-tender Neurologic/Psychiatric: positive: Oriented x3, CN's nml (2-12) Sepsis Event Note (H) - Evaluation Current Stage of Sepsis: Ruled out Conclusion/Plan - Problem List (1) COPD exacerbation Conclusion/Plan: 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 Duonebs steroids Monitor electrolytes continue keflex encourage use of home oxygen and ,may need addition of humidifier (2) Pneumothorax Conclusion/Plan: Surgery consulted by ER Alexis to monitor repeat CXr around noon time tomorrow Qualifiers: Pneumothorax type: spontaneous, secondary Qualified Code(s): J93.12 - Secondary spontaneous pneumothorax (3) Anxiety Conclusion/Plan: Ativan PRN DVT prophylaxis - Lab Results Fish Bones: 11/23/23 12:24 11/23/23 12:24 - Diagnostic Imaging Results Diagnostic Imaging Results: positive: Final report reviewed - EKG Results EKG Interpreted Independently: Maya
[2023-11-23] MEDS ORDERED: MAGNESIUM SULFATE 2 GRAM 2 GM/50 ML BAG IV ONE (21:55)
[2023-11-23] MEDS ORDERED: ACETAMINOPHEN 500 MG TABLET PO SCH (22:00)
[2023-11-23] MEDS: SODIUM CHLORIDE 0.9% 1,000 ML IV SCH (23:19)
[2023-11-24] MEDS: SODIUM CHLORIDE FLUSH 0.9% 10 ML SYRINGE IVP SCH ×3 (00:09→16:58)
[2023-11-24] MEDS: LORazepam 0.5 MG TABLET PO PRN ×3 (05:40→22:16)
--- NOTE | 2023-11-24 08:19 | XRAY Report ---
PROCEDURE: Chest 1V INDICATIONS: reeval ptx TECHNIQUE: One view of the chest was acquired. COMPARISON: Chest radiographs 11/23/2023 FINDINGS: Surgical changes and devices: None. Lungs and pleura: Moderate left-sided pneumothorax does not appear significantly changed in size whe n compared to the prior exam from 11/23/2023 at 8:26 PM. Mild atelectasis of the left lung. Right lung appears stable. No pleural effusion. Mediastinum: Mediastinal contours appear normal. Heart size is normal. No mediastinal shift. Bones and chest wall: No suspicious bony lesions. Overlying soft tissues appear unremarkable. IMPRESSION: Moderate left-sided pneumothorax does not appear significantly changed when compared to the most rece nt prior exam. Reviewed by: Petros Coyle MD on 11/24/2023 8:17 AM PST Approved by: Petros Coyle MD on 11/24/2023 8:17 AM PST Station ID: [id number]
[2023-11-24] MEDS: ACETAMINOPHEN 500 MG TABLET PO SCH ×2 (08:36→16:58)
[2023-11-24] MEDS: cephALEXin 250 MG CAPSULE PO SCH ×2 (08:38→16:58)
[2023-11-24] MEDS: predniSONE 20 MG TABLET PO SCH (08:39)
[2023-11-24] MEDS: PROCHLORPERAZINE 10 MG/2 ML VIAL IVP PRN (08:52)
[2023-11-24] MEDS ORDERED: predniSONE 20 MG TABLET PO SCH (09:00)
--- NOTE | 2023-11-24 12:55 | PHARMACY PROGRESS NOTE ---
- Best Possible Medication History Admit Date and Time: 11/23/232132 Processed by: Pharmacy Medication History completed: Yes Patient Interview: Completed Secondary Source(s): Pharmacy records, Insurance records As the person ultimately responsible for medication therapy, providers are able to order a medication from an existing home medication list in [facility] via the "Reconcile Routine" prior to Confirmation of that medication by geophysical support specialist. Such practice is discouraged except when the physician, in their clinical judgment, deems that a medical need exists for a medication without regard to previous use.
[2023-11-24] MEDS: IPRATROPIUM 0.2 MG/ML NEB INH SCH ×3 (13:15→13:22)
[2023-11-24] MEDS: ACETAMINOPHEN 325 MG TABLET PO PRN (14:09)
[2023-11-24] MEDS ORDERED: LORazepam 2 MG/ML VIAL IVP PRN (17:38)
--- NOTE | 2023-11-24 17:50 | PROVIDER PROGRESS NOTE ---
Subjective - Prog Note Date Prog Note Date: 11/24/23 Prog Note Time: 17:43 - Subjective Pt reports feeling: No change Subjective: Seen this morning and this afternoon. This morning she was in bed, wheezing, short of breath even at rest. This afternoon I want to get out of bed, go to the bathroom, get up from the toilet to wash her hands. Get back in bed. She was quite tachypneic by the end. Chest x-ray shows moderate pneumothorax that is unchanged. I discussed the case with general surgery who states that there is no change. They will reevaluate her again tomorrow Current Medications - Current Medications Current Medications: Active Medications Acetaminophen (Acetaminophen 325 Mg Tablet) 650 mg PO Q4HR PRN PRN Reason: Pain 1 to 4, or Fever Last Admin: 11/24/23 14:09 Dose: 650 mg Acetaminophen (Acetaminophen 500 Mg Tablet) 500 mg PO Q8H [facility] Last Admin: 11/24/23 16:58 Dose: 500 mg Hydrocodone Bitart/Acetaminophen (Hydrocod/Acetam 5/325 Mg Tablet) 1 tab PO Q4HR PRN PRN Reason: Pain 5 to 7 Albuterol/Ipratropium (Ipratropium/Albuterol 3 Ml Neb) 3 ml INH Q4HR PRN PRN Reason: Wheezing Cephalexin (Cephalexin 250 Mg Capsule) 500 mg PO Q8H [facility] Last Admin: 11/24/23 16:58 Dose: 500 mg Hydroxyzine Pamoate (Hydroxyzine Pamoate 25 Mg Capsule) 25 mg PO Q8H PRN PRN Reason: anxiety or sleep Sodium Chloride (Normal Saline 0.9%) 1,000 mls @ 50 mls/hr IV .Q20H [facility] Last Admin: 11/23/23 23:19 Dose: 50 mls/hr Ipratropium Ball (Ipratropium 0.2 Mg/Ml Neb) 0.5 mg INH RTQ6H [facility] Last Admin: 11/24/23 13:22 Dose: 0.5 mg Lorazepam (Lorazepam 0.5 Mg Tablet) 0.5 mg PO Q8HR PRN PRN Reason: Anxiety Last Admin: 11/24/23 14:06 Dose: 0.5 mg Morphine Sulfate (Morphine 2 Mg/Ml Carpuject) 2 mg IVP Q2HR PRN PRN Reason: Pain 8 to 10 Prednisone (Prednisone 20 Mg Tablet) 50 mg PO DAILY [facility] Last Admin: 11/24/23 08:39 Dose: 50 mg Prochlorperazine Edisylate (Prochlorperazine 10 Mg/2 Ml Vial) 10 mg IVP Q6HR PRN PRN Reason: Nausea / Vomiting Last Admin: 11/24/23 08:52 Dose: 10 mg Sodium Chloride (Sodium Chloride Flush 0.9% 10 Ml Syringe) 10 ml IVP PRN PRN PRN Reason: NEEDED PER PROVIDER ORDERS Sodium Chloride (Sodium Chloride Flush 0.9% 10 Ml Syringe) 10 ml IVP 0100,0900,1700 [facility] Last Admin: 11/24/23 16:58 Dose: Not Given Acetaminophen [Tylenol] 500 mg PO Q6H PRN 11/25/22 Objective - Vital Signs/Intake & Output Reviewed Vital Signs: Yes Vital Signs: Vital Signs x48h Temp Pulse Pulse Resp BP Pulse Ox O2 Flow Rate 11/24/23 15:56 37.1 C 88 18 130/88 H 94 5 11/24/23 13:30 4 11/24/23 13:25 90 20 4 11/24/23 13:00 36.9 C 84 18 120/70 96 5 11/24/23 12:39 88 L 5 Intake & Output: Intake & Output 11/21/23 11/22/23 11/23/23 11/24/23 23:59 23:59 23:59 23:59 Intake Total 490 Balance 490 - Objective General Appearance: positive: Alert, Mild distress (From shortness of breath.), Other (Tall, almost cachectic with a BMI of 20) Eyes Bilateral: positive: PERRL, EOMI ENT: positive: No signs of dehydration Neck: positive: No JVD. negative: Stiff neck Respiratory: positive: Wheezes (Louder in the right chest), Rhonchi Cardiovascular: positive: Regular rate & rhythm, Tachycardia Abdomen: positive: Non-tender, No organomegaly, Nml bowel sounds, No distention Skin: positive: Warm, Dry Extremities: positive: Full ROM, No pedal edema Neurologic/Psychiatric: positive: Oriented x3, CN's nml (2-12), Motor nml - Lab Results Fish Bones: 11/23/23 12:24 01/19/24 12:24 Sepsis Event Note (H) - Evaluation Current Stage of Sepsis: Ruled out Assessment/Plan - Problem List (1) Pneumothorax Impression: Still present on today's chest x-ray. Otherwise her overall vital signs, oxygen requirements are stable as they were last night. General surgery was to give her another day before any decision is made about a chest tube. I did update her son on her condition today. He is tells me that he moved in with her a couple of years ago to help her with her needs. He has resigned himself to the fact that she is currently quite a bit of care as she gets older. Plan: Chest x-ray tomorrow Continue with surgical evaluation and consult I will ask social work to sit down with his son or discussed over the phone any possible opportunities he could avail himself of. He is a caregiver, and I always do worry about caregiver burden. She may qualify for some opportunities Qualifiers: Pneumothorax type: spontaneous, secondary Qualified Code(s): J93.12 - Secondary spontaneous pneumothorax (2) COPD exacerbation Impression: On DuoNeb every 4 hours as needed, Atrovent is every 6 hours scheduled. And she is on 50 mg of prednisone daily. At home she is only on albuterol as needed. Today's exam still shows wheezing. And she is requiring 4 to 5 L nasal cannula. Plan: No infiltrate on chest x-ray and as such no antibiotics at this time. Continue p.o. steroids, nebs as needed
[2023-11-24] MEDS: SODIUM CHLORIDE 0.9% 1,000 ML IV SCH (19:43)
[2023-11-25] MEDS: cephALEXin 250 MG CAPSULE PO SCH ×3 (00:48→16:39)
[2023-11-25] MEDS: SODIUM CHLORIDE FLUSH 0.9% 10 ML SYRINGE IVP SCH ×3 (00:49→16:40)
[2023-11-25] MEDS: ACETAMINOPHEN 500 MG TABLET PO SCH ×3 (00:49→16:39)
[2023-11-25] MEDS: LORazepam 0.5 MG TABLET PO PRN ×2 (06:06→21:45)
[2023-11-25] MEDS: IPRATROPIUM 0.2 MG/ML NEB INH SCH ×5 (07:12→21:00)
[2023-11-25] MEDS ORDERED: MULTIVITAMIN 10 ML, THIAMINE INJ 100 MG, FOLIC ACID INJ 1 MG in SODIUM CHLORIDE 0.9% 1,... IV SCH (09:00)
[2023-11-25] MEDS: predniSONE 20 MG TABLET PO SCH (10:19)
--- NOTE | 2023-11-25 12:15 | CONSULTATION NOTE ---
Surgery Consult - Admit Date Hospital Admission Date: 11/23/23 - Consult Date Consult Date: 11/24/23 Requesting Provider: Dr. Jess Rodriguez - Chief Complaint Chief Complaint: LEFT pneumothorax - Home Meds/Allergies Home Medications: Patient History Medication Instructions Recorded Confirmed Acetaminophen [Tylenol] 500 mg PO Q6H PRN 11/25/22 11/24/23 Allergies/Adverse Reactions: Allergies Allergy/AdvReac Type Severity Reaction Status Date / Time "Antibiotics" AdvReac Emesis Uncoded 11/23/23 11:17 - Vital Signs Vital Signs: Last Vital Signs Temp 36.8 C 11/25/23 07:30 Pulse 87 11/25/23 07:30 Resp 20 11/25/23 07:30 BP 141/74 H 11/25/23 07:30 Pulse Ox 89 L 11/25/23 07:30 O2 Flow Rate 6 11/25/23 07:30 Intake & Output: Intake & Output 11/22/23 11/23/23 11/24/23 11/25/23 23:59 23:59 23:59 23:59 Intake Total 1750.833 500 Balance 1750.833 500 - Lab Results Result Diagrams: 11/23/23 12:24 11/23/23 12:24 - Consultation Note Consultation Note: Patient is a 68-year-old female with oxygen dependent COPD who quit smoking 4 days ago upon admission to the hospital. She presented with increased shortness of breath and cough and I was informed by Dr. Ch that the patient had a small pneumothorax on the left-hand side. At the time reviewed the films with Dr. Ch and suggested that I be on standby and if the patient worsened I would be more than happy to place a chest tube. Dr. Rodriguez contacted me last night and stated that she wished for me to see the patient and stated that the x-ray showed mild worsening of the pneumothorax but that the patient had been doing well without any increased shortness of breath. I saw the patient this morning and it was clear that there was a complete and total collapse of the lung today indicating that it was much much worse than it was upon presentation. Oddly the patient felt better with less shortness of breath but it is clear that she is ventilating with only 1 lung. I explained to her and that I explained to her and her son that a tube thoracostomy was in order on the left- hand side. I showed them the chest x-ray of her collapsed left lung and it was clear to them that tube thoracostomy was in order. It should be noted that the patient is not somewhat noncompliant in the sense that she has oxygen dependent COPD and has been smoking up until 4 days ago. Medications have been ordered for her to take for her COPD but because of cost and other issues that she has not been compliant with taking these medications. Additionally she does not use her oxygen all the time. I only state this because she is clearly entering the state here where continued lung injury will result in her likely immediate demise. I discussed the indications, procedure, alternatives including no operation, and possible complications including but not limited to bleeding, infection, nerve injury, and possibly even with the patient and her son and all questions were answered. Verbal and written consent was obtained. The patient despite telling me that she had not had anything to eat this morning has had some frias and oatmeal which will delay the case. I have asked her to let us know if there is any way we can make her stay here [facility] more comfortable to please let us know when she stated that she would. On physical examination she has absent breath sounds on the left and breath sounds throughout on the right. Her heart rate is not tachycardic. She appears to be a little bit short of breath with oxygen in place and somewhat labored breathing.
--- NOTE | 2023-11-25 12:22 | ANESTHESIA ---
Pre-Anesthesia VS, & Labs - Diagnosis left pneumothorax - Procedure chest tube placement Vital Signs: Temp Pulse Resp BP Pulse Ox O2 Flow Rate 36.8 C 87 20 141/74 H 89 L 6 11/25/23 07:30 11/25/23 07:30 11/25/23 07:30 11/25/23 07:30 11/25/23 07:30 11/25/23 07:30 Height: 5 ft 7 in Weight (kg): 58 kg Body Mass Index: 20.0 BMI Classification: Normal - NPO >8 hours - Is Patient ?: No - Lab Results Current Lab Results: Laboratory Tests 11/23/23 12:24: VBG pH 7.295 L, VBG pCO2 56.3 H, VBG pO2 27.9, VBG HCO3 26.8, VBG Total CO2 28.5, VBG O2 Saturation 49.5 L, VBG Base Excess -0.9 11/23/23 12:24: Sodium 131 L, Potassium 4.1, Chloride 93 L, Carbon Dioxide 31, Anion Gap 7.0, BUN 14, Creatinine 0.5 L, Estimated GFR (MDRD) 122, Glucose 116 H , Calcium 9.6, Magnesium 1.7, Total Bilirubin 0.4, AST 19, ALT 17, Alkaline Phosphatase 80, Total Protein 7.3, Albumin 4.4, Globulin 2.9, Albumin/Globulin Ratio 1.5 11/23/23 12:24: WBC 6.9, RBC 4.51, Hgb 14.4, Hct 44.7, MCV 99.1 H, MCH 31.9 H, MCHC 32.2, RDW 12.2, Plt Count 269, MPV 9.6, Neut # (Auto) 5.8, Lymph # (Auto) 0.6 L, Hardin # (Auto) 0.4, Eos # (Auto) 0.0, Baso # (Auto) 0.0, Absolute Nucleated RBC 0.00, Nucleated RBC % 0.0 Fish Bones: 11/23/23 12:24 11/23/23 12:24 Home Medications and Allergies Active Medications Acetaminophen (Acetaminophen 325 Mg Tablet) 650 mg PO Q4HR PRN PRN Reason: Pain 1 to 4, or Fever Last Admin: 11/24/23 14:09 Dose: 650 mg Acetaminophen (Acetaminophen 500 Mg Tablet) 500 mg PO Q8H [facility] Last Admin: 11/25/23 10:19 Dose: 500 mg Hydrocodone Bitart/Acetaminophen (Hydrocod/Acetam 5/325 Mg Tablet) 1 tab PO Q4HR PRN PRN Reason: Pain 5 to 7 Albuterol/Ipratropium (Ipratropium/Albuterol 3 Ml Neb) 3 ml INH Q4HR PRN PRN Reason: Wheezing Cephalexin (Cephalexin 250 Mg Capsule) 500 mg PO Q8H [facility] Last Admin: 11/25/23 10:18 Dose: 500 mg Hydroxyzine Pamoate (Hydroxyzine Pamoate 25 Mg Capsule) 25 mg PO Q8H PRN PRN Reason: anxiety or sleep Sodium Chloride (Normal Saline 0.9%) 1,000 mls @ 50 mls/hr IV .Q20H [facility] Last Infusion: 11/24/23 22:32 Dose: 50 mls/hr Ipratropium [place] (Ipratropium 0.2 Mg/Ml Neb) 0.5 mg INH RTQ6H [facility] Last Admin: 11/25/23 10:20 Dose: Not Given Lorazepam (Lorazepam 0.5 Mg Tablet) 0.5 mg PO Q8HR PRN PRN Reason: Anxiety Last Admin: 11/25/23 06:06 Dose: 0.5 mg Morphine Sulfate (Morphine 2 Mg/Ml Carpuject) 2 mg IVP Q2HR PRN PRN Reason: Pain 8 to 10 Prednisone (Prednisone 20 Mg Tablet) 50 mg PO DAILY [facility] Last Admin: 11/25/23 10:19 Dose: 50 mg Prochlorperazine Edisylate (Prochlorperazine 10 Mg/2 Ml Vial) 10 mg IVP Q6HR PRN PRN Reason: Nausea / Vomiting Last Admin: 11/24/23 08:52 Dose: 10 mg Sodium Chloride (Sodium Chloride Flush 0.9% 10 Ml Syringe) 10 ml IVP PRN PRN PRN Reason: NEEDED PER PROVIDER ORDERS Sodium Chloride (Sodium Chloride Flush 0.9% 10 Ml Syringe) 10 ml IVP 0100,0900,1700 [facility] Last Admin: 11/25/23 10:20 Dose: Not Given Acetaminophen [Tylenol] 500 mg PO Q6H PRN 11/25/22 Allergies/Adverse Reactions: Allergies Allergy/AdvReac Type Severity Reaction Status Date / Time "Antibiotics" AdvReac Emesis Uncoded 11/23/23 11:17 Anes History & Medical History - Anesthetic History Anesthesia Complications: reports: No previous complications - Medical History Cardiovascular: reports: None Pulmonary: reports: COPD Gastrointestinal: reports: Other Neuro: reports: Headaches Musculoskeletal: reports: Osteoarthritis, Chronic back pain, Other Endocrine/Autoimmune: reports: None Blood Disorders: reports: None Skin: reports: None Smoking Status: Current some day smoker - Surgical History Eyes Ears Nose Throat (EENT): reports: Tonsil/Adenoidectomy Exam General: Alert, Oriented x3 Dental: WNL Neck Mobility: Normal Mallampati classification: II Thyromental Distance: greater than 6 cm Respiratory: Lungs clear Cardiovascular: Regular rate Plan Anesthesia Type: Total IV Consent for Procedure(s) Verified and Reviewed: Yes Code Status: Attempt Resuscitation ASA classification: 3-Severe systemic disease Is this case an emergency?: Yes
[2023-11-25] MEDS ORDERED: BUPIVACAINE 0.5%-EPI 1:200000 PF 30 ML VIAL ONE (12:43)
[2023-11-25] MEDS ORDERED: fentaNYL 100 MCG/2 ML VIAL ONE (13:01)
[2023-11-25] MEDS ORDERED: MIDAZOLAM 2 MG/2 ML VIAL ONE (13:01)
[2023-11-25] MEDS ORDERED: PROPOFOL 200 MG/20 ML VIAL IVP ONE (13:02)
[2023-11-25] MEDS ORDERED: LIDOCAINE-PF 2% 10 ML AMP SUBQ ONE (13:02)
--- NOTE | 2023-11-25 14:20 | PROVIDER PROGRESS NOTE ---
Subjective - Prog Note Date Prog Note Date: 11/25/23 Prog Note Time: 14:18 - Subjective Subjective: This morning's chest x-ray shows complete drop of her lung. Amazingly, she is no more short of breath now than she was yesterday. For continuity of care, I did ask her primary care provider was so that she can be seen by the appropriate provider after discharge. She says that she really does not have a provider. 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 But she does not have a provider that would be able to order medications. Or x-rays. At baseline she still has cough, congestion, dyspnea on exertion. Eating her breakfast wipes her out. Current Medications - Current Medications Current Medications: Active Medications Acetaminophen (Acetaminophen 325 Mg Tablet) 650 mg PO Q4HR PRN PRN Reason: Pain 1 to 4, or Fever Last Admin: 11/24/23 14:09 Dose: 650 mg Acetaminophen (Acetaminophen 500 Mg Tablet) 500 mg PO Q8H [facility] Last Admin: 11/25/23 10:19 Dose: 500 mg Hydrocodone Bitart/Acetaminophen (Hydrocod/Acetam 5/325 Mg Tablet) 1 tab PO Q4HR PRN PRN Reason: Pain 5 to 7 Albuterol/Ipratropium (Ipratropium/Albuterol 3 Ml Neb) 3 ml INH Q4HR PRN PRN Reason: Wheezing Cephalexin (Cephalexin 250 Mg Capsule) 500 mg PO Q8H [facility] Last Admin: 11/25/23 10:18 Dose: 500 mg Hydroxyzine Pamoate (Hydroxyzine Pamoate 25 Mg Capsule) 25 mg PO Q8H PRN PRN Reason: anxiety or sleep Sodium Chloride (Normal Saline 0.9%) 1,000 mls @ 50 mls/hr IV .Q20H [facility] Last Infusion: 11/24/23 22:32 Dose: 50 mls/hr Ipratropium [place] (Ipratropium 0.2 Mg/Ml Neb) 0.5 mg INH RTQ6H [facility] Last Admin: 11/25/23 13:26 Dose: 0.5 mg Lorazepam (Lorazepam 0.5 Mg Tablet) 0.5 mg PO Q8HR PRN PRN Reason: Anxiety Last Admin: 11/25/23 06:06 Dose: 0.5 mg Morphine Sulfate (Morphine 2 Mg/Ml Carpuject) 2 mg IVP Q2HR PRN PRN Reason: Pain 8 to 10 Prednisone (Prednisone 20 Mg Tablet) 50 mg PO DAILY [facility] Last Admin: 11/25/23 10:19 Dose: 50 mg Prochlorperazine Edisylate (Prochlorperazine 10 Mg/2 Ml Vial) 10 mg IVP Q6HR PRN PRN Reason: Nausea / Vomiting Last Admin: 11/24/23 08:52 Dose: 10 mg Sodium Chloride (Sodium Chloride Flush 0.9% 10 Ml Syringe) 10 ml IVP PRN PRN PRN Reason: NEEDED PER PROVIDER ORDERS Sodium Chloride (Sodium Chloride Flush 0.9% 10 Ml Syringe) 10 ml IVP 0100,0900,1700 [facility] Last Admin: 11/25/23 10:20 Dose: Not Given Acetaminophen [Tylenol] 500 mg PO Q6H PRN 11/25/22 Objective - Vital Signs/Intake & Output Reviewed Vital Signs: Yes Vital Signs: Vital Signs x48h Temp Pulse Pulse Resp BP Pulse Ox O2 Flow Rate 11/25/23 13:29 36.7 C 87 20 136/63 H 91 L 6 11/25/23 13:27 92 20 6 11/25/23 07:30 36.8 C 87 20 141/74 H 89 L 6 11/25/23 07:15 5 11/25/23 07:13 92 22 6 Intake & Output: Intake & Output 11/22/23 11/23/23 11/24/23 11/25/23 23:59 23:59 23:59 23:59 Intake Total 1750.833 620 Balance 1750.833 620 - Objective General Appearance: positive: Alert (My asking about her primary care provider makes her very, very anxious and she feels like this is terrible news to share with me that she does not have a primary care provider), Moderate distress, Other (Tall, cachectic elderly woman) Eyes Bilateral: positive: PERRL, EOMI ENT: positive: No signs of dehydration Neck: positive: No JVD. negative: Stiff neck Respiratory: positive: Wheezes, Rhonchi, Other (Left lung is silent and I hear radiated sounds from her right lung in her left side. She started at 2 L on the for nasal cannula. Up to 8 L intermittently yesterday. Today she is 6 L to maintain O2 sats.). negative: Breath sounds nml Cardiovascular: positive: Regular rate & rhythm, Other (Trachea is not deviated) Abdomen: positive: Non-tender, No organomegaly, Nml bowel sounds, No distention Skin: positive: Warm, Dry Extremities: positive: Full ROM, No pedal edema Neurologic/Psychiatric: positive: Oriented x3, CN's nml (2-12), Motor nml - Lab Results Fish Bones: 11/23/23 12:24 11/23/23 12:24 Sepsis Event Note (H) - Evaluation Current Stage of Sepsis: Ruled out Assessment/Plan - Problem List (1) Pneumothorax Impression: Complete pneumothorax on today's chest x-ray. I discussed the case with general surgery. She did eat breakfast this morning so she will not be made n.p.o. and she will go to the OR for a chest tube. I will let case management and social work know that the son is looking for information on any opportunities he could avail himself of for his mother as he anticipates increasing caregiver duties Plan: Chest tube today. Because we do not have monitoring on MedSurg, the patient will go to the OR for this. Anesthesia has been notified and I have discussed the case with them. Social work consult ordered Qualifiers: Pneumothorax type: spontaneous, secondary Qualified Code(s): J93.12 - Secondary spontaneous pneumothorax (2) COPD exacerbation Impression: On DuoNeb every 4 hours as needed, Atrovent is every 6 hours scheduled. And she is on 50 mg of prednisone daily. At home she is only on albuterol as needed. Today's exam still shows wheezing. And she is requiring 4 to 5 L nasal cannula. Plan: No infiltrate on chest x-ray and as such no antibiotics at this time. Continue p.o. steroids, nebs as needed Qualifiers: Qualified Code(s): J93.12 - Secondary spontaneous pneumothorax
[2023-11-25] MEDS ORDERED: BUPIVACAINE 0.5%-EPI 1:200000 PF 30 ML VIAL SUBQ ONE (14:22)
--- NOTE | 2023-11-25 14:53 | XRAY Report ---
PROCEDURE: Chest 1V INDICATIONS: pneumothorax TECHNIQUE: One view of the chest was acquired. COMPARISON: 11/24/2023 FINDINGS: Surgical changes and devices: None. Lungs and pleura: Enlarging left-sided pneumothorax with atelectasis of the left lung. Underlying ri ght lung hyperinflation and emphysematous changes. There is elevation left hemidiaphragm Mediastinum: Mediastinal contours appear normal. Heart size is normal. Bones and chest wall: No suspicious bony lesions. Overlying soft tissues appear unremarkable. IMPRESSION: Large left pneumothorax, increased from prior exam Right lung hyperinflation Reviewed by: Dontrell Frankel MD on 11/25/2023 1:51 PM AKST Approved by: Dontrell Frankel MD on 11/25/2023 1:51 PM AKST Station ID: [id number]
--- NOTE | 2023-11-25 15:31 | OPERATIVE REPORT ---
Operative Report - General Admit Date: 11/23/23 Procedure Date: 11/25/23 Planned Procedure: LEFT tube thoracostomy Pre-Op Diagnosis: LEFT pneumothorax Procedure Performed: LEFT tube thoracostomy Post Op Diagnosis: LEFT pneumothorax - Procedure Note Primary Surgeon: Braden Bull MD Anesthesia Provider: Charlee Krueger CRNA Anesthesia Technique: Local (20 mL of half percent Marcaine with epinephrine), MAC IV Fluids (mL): 300 Estimated Blood Loss (mL): 1 Drain/Tube Type: Other (20 Romanian straight chest tube) Indications: LEFT pneumothorax (worsening and symptomatic) Complications: None. - Other Other Information/Narrative: After verbal and written informed consent was obtained detailing the operation, the alternatives the operation including no operation, risks of infection, bleeding requiring transfusion with its risks, nerve injury, and and after I met with the patient confirming the surgery and the site of surgery, the patient was brought to the operative suite and placed supine on the operating table. Great care was taken to avoid pressure points to prevent pressure necrosis or nerve injury. Monitoring devices were applied along with TEDs and pneumatic compression stockings (to prevent DVT). The patient received preoperative antibiotics for surgical prophylaxis. Charlee Krueger CRNA sedated and anesthetized the patient for the entire procedure. The patient was prepped and draped in the usual sterile manner. With the patient draped my initials were clearly visible. A "time in" then confirmed that the patient was identified with 3 identifiers (name, date, and medical record number), the history and physical was updated and in the chart, the signed consent confirming the procedure was in the chart, the patient was in the correct position, the aforementioned prophylactic measures were in place or given, we had the correct personnel and equipment to complete the procedure and that anesthesia and the surgical team were given an opportunity to express any concerns. With the agreement of everyone in the room we proceeded with the operation. After the selected incision site in the mid axillary line was injected with half percent Marcaine with epinephrine, anesthetizing the area, a standard incision was made and dissection was carried down through the subcutaneous tissues to the ribs. Blunt dissection was then carried up over the superior rib just superior to the one that I cut down on. In this intercostal space I entered the chest using a Olga. There was prompt return of air. The Olga was then opened to widen the opening. Great care was taken to remain just above the superior rib so as not to cause any injury to the neurovascular bundle. In this space I inserted a 20-gauge straight chest tube using the Olga to guide the tube into position. The tube was measured up against the chest wall to ensure that the last hole as evidenced by radiolucency on an x-ray would be well within the chest. There was flow of air and condensation within the chest tube with the patient's breathing. A 2-0 silk suture was used to create a U-stitch ([place] tie) to secure the chest tube in place. The chest tube was attached to an Atrium collection system and there was prompt bubbling within the water seal. Xerofoam and a drain dressing was applied and taped in place. The chest tube was also umbilicated with tape to the patient's skin to prevent removal. Because of a discrepancy between the 20 Romanian chest tube and the [place] tree attachment to the Atrium a smaller Carissa tree normally used in nasogastric tubes was used to bridge the discrepancy and this was secured using zip ties to prevent any chance of disconnection. A chest x-ray was then ordered and comp leted within the operating room which showed good position of the tube without significant insufflation of the lung. At this point a "timeout" was performed that confirmed that all counts were monster ect, the procedure that was performed, the blood loss, the IV fluids administered, the patient's condition and any concerns of the operating team had. Having tolerated the procedure well, the patient was taken to her room in good and stable condition. CPT 30124 This document was created in part using voice recognition technology. Because of the inherent limitations of the system, occasional same sounding word substitutions and grammatical errors do occur and persist despite proofreading. Please read this document for content.
[2023-11-25] MEDS: SODIUM CHLORIDE 0.9% 1,000 ML IV SCH (16:38)
--- NOTE | 2023-11-25 16:41 | XRAY Report ---
PROCEDURE: Chest for Line Placement INDICATIONS: line placement TECHNIQUE: One view of the chest was acquired. COMPARISON: Chest x-ray 11/25/2023 FINDINGS: Surgical changes and devices: Interval placement of left chest tube. Tip overlies the medial left up per lobe. Lungs and pleura: Large left pneumothorax with left lung atelectasis, minimally improved. Emphysemat ous changes are present on the right. Mediastinum: Mediastinal contours appear normal. Heart size is normal. Bones and chest wall: No suspicious bony lesions. Overlying soft tissues appear unremarkable. IMPRESSION: Left chest tube overlying the medial left upper lobe with large pneumothorax, minimally improved alth ough significant left lung atelectasis. Reviewed by: Ina Teixeira MD on 11/25/2023 4:39 PM PST Approved by: Ina Teixeira MD on 11/25/2023 4:39 PM PST Station ID: [id number]
[2023-11-25] MEDS ORDERED: LEVALBUTEROL 1.25 MG/3 ML NEB INH ONE (20:17)
[2023-11-25] MEDS: ACETAMINOPHEN 325 MG TABLET PO PRN (20:22)
[2023-11-26] MEDS: cephALEXin 250 MG CAPSULE PO SCH ×3 (00:59→16:11)
[2023-11-26] MEDS: ACETAMINOPHEN 500 MG TABLET PO SCH ×3 (00:59→16:12)
[2023-11-26] MEDS: SODIUM CHLORIDE FLUSH 0.9% 10 ML SYRINGE IVP SCH ×3 (01:03→16:12)
[2023-11-26] MEDS: IPRATROPIUM 0.2 MG/ML NEB INH SCH ×4 (01:33→20:19)
[2023-11-26] MEDS: LORazepam 0.5 MG TABLET PO PRN ×3 (05:52→23:00)
--- NOTE | 2023-11-26 06:27 | ANESTHESIA POST OP EVALUATION ---
Anesthesia Post Eval - Post Anesthesia Eval Vitals: Last Vital Signs Temp 36.5 C 11/26/23 05:43 Pulse 77 11/26/23 05:43 Resp 16 11/26/23 05:43 BP 130/68 11/26/23 05:43 Pulse Ox 94 11/26/23 05:43 O2 Flow Rate 6 11/26/23 05:43 CV Function Including HR & BP: Stable Pain Control: Satisfactory Nausea & Vomiting: Negative Mental Status: Baseline Respiratory Status: Airway Patent, Other (sats 86-88 per basline on 6 l nasal cannula, hospitalist made aware) Hydration Status: Satisfactory Anesthesia Complications: None
[2023-11-26] MEDS ORDERED: MORPHINE 2 MG/ML CARPUJECT IVP PRN (07:30)
--- NOTE | 2023-11-26 07:52 | PROVIDER PROGRESS NOTE ---
Progress Note Chest x-ray this morning shows resolution of the patient's pneumothorax. The official reading has not been entered into the computer yet. The patient was examined in room 2210 at [facility] Med[facility] unit in the presence of her son. She is saturating better and is breathing easier. She is complaining of discomfort with the tube. On physical examination she has got breath sounds bilaterally. Additionally her heart rate is a little bit slower with a regular rate and rhythm in the 80s. Abdomen is benign. On examination of the tube there is some serosanguineous effusion that is being drained into the chest tube. It is a little bit more than I expected. Assessment: 68-year-old female with spontaneous left pneumothorax treated with left tube thoracostomy Plan: Continue 20 cm of water suction for the time being and if the morning's x- ray shows improvement or the same we will place her on waterseal. Chest x-ray will follow this to ensure that there is no collapse of the lung. If after 24 hours waterseal allows the lung to stay up then chest tube would be removed with a follow-up chest x-ray. All of this was discussed with the patient and her son. They vocalized understanding.
--- NOTE | 2023-11-26 08:04 | XRAY Report ---
PROCEDURE: Chest 1V INDICATIONS: LEFT pnemothorax s/p tube thoracostomy TECHNIQUE: One view of the chest was acquired. COMPARISON: 11/25/2023 FINDINGS: Surgical changes and devices: Left chest tube is in place. Lungs and pleura: Left pneumothorax is significantly decreased. Persistent left mid and lower lung o pacities. Possible left small effusion. Mediastinum: Heart size is at the upper limit of normal. Bones and chest wall: Degenerative changes. IMPRESSION: Left thoracostomy tube in place. Significantly decreased left pneumothorax. Persistent mid and lower lung opacities and possible small effusion. Consider future imaging surveillance to assess for resolu tion. Reviewed by: Valerio Metzger MD on 11/26/2023 8:03 AM PST Approved by: Valerio Metzger MD on 11/26/2023 8:03 AM PST Station ID: [id number]
[2023-11-26] MEDS: predniSONE 20 MG TABLET PO SCH (08:55)
[2023-11-26] MEDS ORDERED: LEVALBUTEROL 1.25 MG/3 ML NEB INH PRN (09:06)
[2023-11-26] MEDS: SODIUM CHLORIDE 0.9% 1,000 ML IV SCH (11:59)
[2023-11-26] MEDS ORDERED: KETOROLAC 30 MG/ML VIAL IVP PRN (12:49)
--- NOTE | 2023-11-26 12:56 | PROVIDER PROGRESS NOTE ---
Subjective - Prog Note Date Prog Note Date: 11/26/23 Prog Note Time: 12:58 - Subjective Subjective: Is refusing opioids for pain management. Occasionally desats to 86% when she moves around in bed. Consuming about 25% of her food only. She tells me that she is really surprised at how much this hurts Objective - Vital Signs/Intake & Output Reviewed Vital Signs: Yes Vital Signs: Vital Signs x48h Temp Pulse Pulse Resp BP Pulse Ox O2 Flow Rate 11/26/23 12:00 88 L 6 11/26/23 11:58 86 L 5 11/26/23 07:50 5 11/26/23 07:46 37.1 C 76 18 128/73 95 6 11/26/23 07:34 81 22 6 11/26/23 05:43 36.5 C 77 16 130/68 94 6 Intake & Output: Intake & Output 11/23/23 11/24/23 11/25/23 11/26/23 23:59 23:59 23:59 23:59 Intake Total 8320.933 9398.500 924.167 Output Total 660 780 Balance 5899.422 1196.500 144.167 - Objective General Appearance: positive: Alert, Moderate distress (from CT pain.), Other (Cachectic elderly female. Sitting upright in bed. Although she complains of pain there is no tachypnea or tachycardia) Eyes Bilateral: positive: PERRL, EOMI ENT: positive: No signs of dehydration Neck: positive: No JVD. negative: Stiff neck Respiratory: positive: Wheezes Cardiovascular: positive: Regular rate & rhythm Abdomen: positive: Non-tender, No organomegaly, Nml bowel sounds, No distention Skin: positive: Warm, Dry Extremities: positive: Full ROM, No pedal edema Neurologic/Psychiatric: positive: Oriented x3, CN's nml (2-12), Motor nml - Lab Results Fish Bones: 11/23/23 12:24 11/23/23 12:24 ABX Reporting Has patient been on IV antibiotics over the past 48 hours?: No Sepsis Event Note (H) - Evaluation Current Stage of Sepsis: Ruled out Assessment/Plan - Problem List (1) Pneumothorax Impression: (1) Pneumothorax Impression: Complete pneumothorax on 11/25 CXR so went to the OR for chest tube. Today she feels like she is breathing better but alarmed at home much it hurts. She doesn't want MS or an opiate. Plan: Toradol prn Qualifiers: Pneumothorax type: spontaneous, secondary Qualified Code(s): J93.12 - Secondary spontaneous pneumothorax (2) COPD exacerbation Impression: On DuoNeb every 4 hours as needed, Atrovent is every 6 hours scheduled. And she is on 50 mg of prednisone daily. At home she is only on albuterol as needed. Today's exam has less wheezing that 11/25. And she is still requiring 4 to 5 L nasal cannula. Plan: No infiltrate on chest x-ray and as such no antibiotics at this time. Continue p.o. steroids, nebs as needed Qualifiers: Qualified Code(s): J93.12 - Secondary spontaneous pneumothorax Qualifiers: Qualified Code(s): J93.12 - Secondary spontaneous pneumothorax
[2023-11-26] MEDS: polyethylene glycoL 3350 17 GM PACKET PO SCH (16:11)
[2023-11-26] MEDS: ACETAMINOPHEN 325 MG TABLET PO PRN (20:50)
[2023-11-27] MEDS: cephALEXin 250 MG CAPSULE PO SCH ×3 (00:33→17:20)
[2023-11-27] MEDS: ACETAMINOPHEN 500 MG TABLET PO SCH ×3 (00:33→17:20)
[2023-11-27] MEDS: SODIUM CHLORIDE FLUSH 0.9% 10 ML SYRINGE IVP SCH ×3 (00:34→17:21)
[2023-11-27] MEDS: ACETAMINOPHEN 325 MG TABLET PO PRN ×2 (04:57→14:11)
[2023-11-27] MEDS: LORazepam 0.5 MG TABLET PO PRN (06:44)
[2023-11-27] MEDS: IPRATROPIUM 0.2 MG/ML NEB INH SCH ×3 (07:37→19:37)
[2023-11-27] MEDS: predniSONE 20 MG TABLET PO SCH (08:42)
[2023-11-27] MEDS: polyethylene glycoL 3350 17 GM PACKET PO SCH (08:45)
[2023-11-27] MEDS: SODIUM CHLORIDE 0.9% 1,000 ML IV SCH (08:48)
--- NOTE | 2023-11-27 10:21 | PROVIDER PROGRESS NOTE ---
Assessment/Plan - Problem List (1) Pneumothorax Qualifiers: Pneumothorax type: spontaneous, primary Qualified Code(s): J93.11 - Primary spontaneous pneumothorax Assessment/Plan: Patient is doing very well after expansion of her LEFT lung with LEFT tube thoracostomy. Will place patient on water seal and check chest X-ray later today. If lung is up remain on water seal. If pneumothorax returns plce patient back on suction. Patient is adamant that she has quit smoking and I believe her. She should not require help with tobacco cessation. I explained that she will require 6 weeks before she feels markedly better. She asked that I place pulsox on her and it shows O2 sats of 93-95%. I explained the pathophysiology of the O2 dissociation curve. She vocalized an understanding. If lung remains up chest tube may be removable tomorrow. - Current Meds Current Meds: Current Medications Generic Name Dose Route Start Last Admin Trade Name Freq PRN Reason Stop Dose Admin Acetaminophen 650 mg 11/23/23 21:33 11/27/23 04:57 Acetaminophen 325 Mg Tablet PO 650 mg Q4HR PRN Administration Pain 1 to 4, or Fever Acetaminophen 500 mg 11/24/23 08:00 11/27/23 08:43 Acetaminophen 500 Mg Tablet PO 500 mg Q8H [facility] Administration Cephalexin 500 mg 11/24/23 08:00 11/27/23 08:42 Cephalexin 250 Mg Capsule PO 500 mg Q8H [facility] Administration Sodium Chloride 1,000 mls @ 50 mls/hr 11/23/23 22:00 11/27/23 08:48 Normal Saline 0.9% IV 50 mls/hr .Q20H [facility] Administration Ipratropium [place] 0.5 mg 11/26/23 14:00 11/27/23 07:37 Ipratropium 0.2 Mg/Ml Neb INH 0.5 mg TID [facility] Administration Ketorolac Tromethamine 30 mg 11/26/23 12:49 11/26/23 13:09 Ketorolac 30 Mg/Ml Vial IVP 12/01/23 12:48 30 mg Q6HR PRN Administration Severe Pain (Level 7-10) Lorazepam 0.5 mg 11/23/23 21:37 11/27/23 06:44 Lorazepam 0.5 Mg Tablet PO 0.5 mg Q8HR PRN Administration Anxiety Polyethylene Glycol 17 gm 11/26/23 17:00 11/27/23 08:45 Polyethylene Glycol 3350 17 Gm Packet PO 17 gm DAILY [facility] Administration Prednisone 50 mg 11/24/23 09:00 11/27/23 08:42 Prednisone 20 Mg Tablet PO 50 mg DAILY [facility] Administration Prochlorperazine Edisylate 10 mg 11/23/23 21:33 11/24/23 08:52 Prochlorperazine 10 Mg/2 Ml Vial IVP 10 mg Q6HR PRN Administration Nausea / Vomiting Sodium Chloride 10 ml 11/23/23 21:33 11/26/23 13:08 Sodium Chloride Flush 0.9% 10 Ml Syringe IVP 10 ml PRN PRN Administration NEEDED PER PROVIDER ORDERS Sodium Chloride 10 ml 11/24/23 01:00 11/27/23 08:45 Sodium Chloride Flush 0.9% 10 Ml Syringe IVP Not Given 0100,0900,1700 [facility] - Lab Result Lab results reviewed: Yes Fish Bone Diagrams: 11/23/23 12:24 11/23/23 12:24 - Additional Planning Condition/Complexity: Stable Plan Discussed with:: Patient Time Spent: 15-30 minutes Subjective - Subjective Patient Reports: Feeling Better, Cough (Productive of what was in her collpased LEFT lung.) Objective Vital Signs: Vital Signs - 24 hr 11/26/23 11/26/23 11/26/23 11:58 12:00 13:00 Temperature 37.2 C Heart Rate 75 Heart Rate [ 87 Brachial] Respiratory 20 Rate Blood Pressure 119/76 [Right Brachial artery] O2 Saturation 86 L 88 L 92 If not protocol 5 6 3.5 : Oxygen Flow, liters/minute 11/26/23 11/26/23 11/26/23 15:40 20:07 20:22 Temperature 37.2 C 37.1 C Heart Rate 70 Heart Rate [ 81 76 Brachial] Respiratory 18 24 20 Rate Blood Pressure 136/83 H 121/69 [Right Brachial artery] O2 Saturation 93 93 If not protocol 6 6 6 : Oxygen Flow, liters/minute 11/26/23 11/27/23 11/27/23 20:24 00:18 05:27 Temperature 36.7 C 37.1 C Heart Rate Heart Rate [ 82 72 Brachial] Respiratory 24 18 Rate Blood Pressure 113/59 L 130/71 [Right Brachial artery] O2 Saturation 90 L 96 If not protocol 6 6 6 : Oxygen Flow, liters/minute 11/27/23 07:49 Temperature 37.2 C Heart Rate Heart Rate [ 81 Brachial] Respiratory 20 Rate Blood Pressure 128/77 [Right Brachial artery] O2 Saturation 95 If not protocol 3.5 : Oxygen Flow, liters/minute Oxygen O2 Source Nasal cannula Oxygen Flow Rate 2 I&O (Last 24 Hrs): Intake and Output Totals x24h 11/25/23 11/26/23 11/27/23 23:59 23:59 23:59 Intake Total 2582.500 2185.000 1099.167 Output Total 670 1424 300 Balance 1912.500 761.000 799.167 General: Alert HEENT: Atraumatic Respiratory: Chest non-tender, No respiratory distress, Breath sounds nml (Slightly decreased air flow.) Comments/Notes: Souleymane tube in place LEFT chest. Dressing intact. No air leak. Some respiratory variation. - Results Results: Laboratory Results WBC 6.9 x10^3/uL (4.8-10.8) 11/23/23 12:24 RBC 4.51 10^6/uL (4.20-5.40) 11/23/23 12:24 Hgb 14.4 g/dL (12.0-16.0) 11/23/23 12:24 Hct 44.7 % (37.0-47.0) 11/23/23 12:24 MCV 99.1 fL (81.0-99.0) H 11/23/23 12:24 MCH 31.9 pg (27.0-31.0) H 11/23/23 12:24 MCHC 32.2 g/dL (32.0-36.0) 11/23/23 12:24 RDW 12.2 % (12.0-15.0) 11/23/23 12:24 Plt Count 269 10^3/uL (130-450) 11/23/23 12:24 MPV 9.6 fL (7.9-10.8) 11/23/23 12:24 Neut # (Auto) 5.8 10^3/uL (1.5-6.6) 11/23/23 12:24 Lymph # (Auto) 0.6 10^3/uL (1.5-3.5) L 11/23/23 12:24 [place] # (Auto) 0.4 10^3/uL (0.0-1.0) 11/23/23 12:24 Eos # (Auto) 0.0 10^3/uL (0.0-0.7) 11/23/23 12:24 Baso # (Auto) 0.0 10^3/uL (0.0-0.1) 11/23/23 12:24 Absolute Nucleated RBC 0.00 x10^3/uL 11/23/23 12:24 Nucleated RBC % 0.0 /100WBC 11/23/23 12:24 VBG pH 7.295 (7.31-7.41) L 11/23/23 12:24 VBG pCO2 56.3 mmHg (41-51) H 11/23/23 12:24 VBG pO2 27.9 mmHg (25-47) 11/23/23 12:24 VBG HCO3 26.8 mmol/L (23-28) 11/23/23 12:24 VBG Total CO2 28.5 mmol/L (24-29) 11/23/23 12:24 VBG O2 Saturation 49.5 % (60-80) L 11/23/23 12:24 VBG Base Excess -0.9 mmol/L (-2 - +2) 11/23/23 12:24 Sodium 131 mmol/L (135-145) L 11/23/23 12:24 Potassium 4.1 mmol/L (3.5-4.5) 11/23/23 12:24 Chloride 93 mmol/L (101-111) L 11/23/23 12:24 Carbon Dioxide 31 mmol/L (21-32) 11/23/23 12:24 Anion Gap 7.0 (6-13) 11/23/23 12:24 BUN 14 mg/dL (6-20) 11/23/23 12:24 Creatinine 0.5 mg/dL (0.6-1.3) L 11/23/23 12:24 Estimated GFR (MDRD) 122 (>89) 11/23/23 12:24 Glucose 116 mg/dL (74-104) H 11/23/23 12:24 Calcium 9.6 mg/dL (8.5-10.3) 11/23/23 12:24 Magnesium 1.7 mg/dL (1.7-2.3) 11/23/23 12:24 Total Bilirubin 0.4 mg/dL (0.2-1.0) 11/23/23 12:24 AST 19 IU/L (10-42) 11/23/23 12:24 ALT 17 IU/L (10-60) 11/23/23 12:24 Alkaline Phosphatase 80 IU/L (42-121) 11/23/23 12:24 Total Protein 7.3 g/dL (6.4-8.9) 11/23/23 12:24 Albumin 4.4 g/dL (3.2-5.5) 11/23/23 12:24 Globulin 2.9 g/dL (2.1-4.2) 11/23/23 12:24 Albumin/Globulin Ratio 1.5 (1.0-2.2) 11/23/23 12:24 Sepsis Event Note (H) - Evaluation Current Stage of Sepsis: Ruled out ABX Reporting Has patient been on IV antibiotics over the past 48 hours?: No
--- NOTE | 2023-11-27 16:16 | XRAY Report ---
PROCEDURE: Chest 1V INDICATIONS: Tube thoracostomy for LEFT pneumothorax - water se TECHNIQUE: One view of the chest was acquired. COMPARISON: 11/26/2023. FINDINGS: Surgical changes and devices: Left-sided chest tube is again seen.. Lungs and pleura: Tiny left apical pneumothorax is again noted, not significantly changed in size co mpared to previous study. Mildly increased interstitial lung markings bilaterally is again seen. No d efinite focal infiltrate. Small left pleural effusion is again noted with left basilar atelectasis. Mediastinum: Mediastinal contours appear normal. Heart size is normal. Bones and chest wall: No suspicious bony lesions. Overlying soft tissues appear unremarkable. IMPRESSION: Stable tiny left apical pneumothorax. Small left pleural effusion with left basilar atelectasis. Incr ease in interstitial lung markings concerning for mild pulmonary edema. Reviewed by: Ector Mtz MD on 11/27/2023 4:15 PM PST Approved by: Ector Mtz MD on 11/27/2023 4:15 PM PST Station ID: [id number]
--- NOTE | 2023-11-27 18:50 | PROVIDER PROGRESS NOTE ---
Assessment/Plan - Problem List (1) Spontaneous pneumothorax Assessment/Plan: Complete pneumothorax seen on 11/25 CXR so she went to the OR for chest tube placement. Since 11/26 she feels like she is breathing better but has a persistent cough. She doesn't want Morphine or another opiates for pain. Plan: Toradol prn and Tylenol prn Chest tube management as per Gen Surg, which as discussed with Dr Bull today>> Tube clamped today before poss removel tomorrow. Qualifiers: Pneumothorax type: spontaneous, secondary Qualified Code(s): J93.12 - S econdary spontaneous pneumothorax (2) COPD exacerbation Impression: She recently quit smoking on her own (about a month ago). She has no PCP We have her on Xopenex neb every 4 hours as needed, Atrovent is every 6 hours scheduled. And she is on 50 mg of po Prednisone daily. At home she was only on albuterol as needed. Her exam has less wheezing. No infiltrate was seen on chest x-ray, but she has a cough w/ copious green sputum production, thus empiric Keflex was started She describes feeling sudden anxiety Plan: Continue meds as listed above but I will start weaning down the Prednisone which may be causing anxiety. I taught her pursed lip breathing today I advised her to establish with a PCP and recommended Pulmonary Rehab after DCh (3) Acute respiratory failure with hypoxia Impression: She was requiring 4 to 5 L nasal cannula and that is down to 1.5-3L O2 n.c. Her CXR today shows poss CHF Plan: Cont suppl O2, target O2 sat >88% in a COPDer She will need an oximetry walk test on day of Dch I will stop her iv fluids - Current Meds Current Meds: Current Medications Generic Name Dose Route Start Last Admin Trade Name Freq PRN Reason Stop Dose Admin Acetaminophen 650 mg 11/23/23 21:33 11/27/23 14:11 Acetaminophen 325 Mg Tablet PO 650 mg Q4HR PRN Administration Pain 1 to 4, or Fever Acetaminophen 500 mg 11/24/23 08:00 11/27/23 17:20 Acetaminophen 500 Mg Tablet PO 500 mg Q8H MYCHAL Administration Cephalexin 500 mg 11/24/23 08:00 11/27/23 17:20 Cephalexin 250 Mg Capsule PO 500 mg Q8H MYCHAL Administration Sodium Chloride 1,000 mls @ 50 mls/hr 11/23/23 22:00 11/27/23 08:48 Normal Saline 0.9% IV 50 mls/hr .Q20H MYCHAL Administration Ipratropium [place] 0.5 mg 11/26/23 14:00 11/27/23 14:12 Ipratropium 0.2 Mg/Ml Neb INH 0.5 mg TID MYCHAL Administration Ketorolac Tromethamine 30 mg 11/26/23 12:49 11/26/23 13:09 Ketorolac 30 Mg/Ml Vial IVP 12/01/23 12:48 30 mg Q6HR PRN Administration Severe Pain (Level 7-10) Lorazepam 0.5 mg 11/23/23 21:37 11/27/23 06:44 Lorazepam 0.5 Mg Tablet PO 0.5 mg Q8HR PRN Administration Anxiety Polyethylene Glycol 17 gm 11/26/23 17:00 11/27/23 08:45 Polyethylene Glycol 3350 17 Gm Packet PO 17 gm DAILY MYCHAL Administration Prednisone 50 mg 11/24/23 09:00 11/27/23 08:42 Prednisone 20 Mg Tablet PO 50 mg DAILY MYCHAL Administration Prochlorperazine Edisylate 10 mg 11/23/23 21:33 11/24/23 08:52 Prochlorperazine 10 Mg/2 Ml Vial IVP 10 mg Q6HR PRN Administration Nausea / Vomiting Sodium Chloride 10 ml 11/23/23 21:33 11/26/23 13:08 Sodium Chloride Flush 0.9% 10 Ml Syringe IVP 10 ml PRN PRN Administration NEEDED PER PROVIDER ORDERS Sodium Chloride 10 ml 11/24/23 01:00 11/27/23 17:21 Sodium Chloride Flush 0.9% 10 Ml Syringe IVP 10 ml 0100,0900,1700 MYCHAL Administration - Lab Result Fish Bone Diagrams: 11/23/23 12:24 11/23/23 12:24 - Additional Planning My Orders: My Active Orders 11/27/23 Dinner Gluten Free Diet [DIET] 11/27/23 21:00 Docusate Sodium 250Mg Capsule [Colace 250Mg Capsule] 250 - 500 mg PO DAILY Subjective - Subjective Patient Reports: Feeling Better (Breathing is better overall, but she gets sudden panic/anxiety. She is still bringing up green phlegm) Objective Vital Signs: Vital Signs - 24 hr 11/26/23 11/26/23 11/26/23 20:07 20:22 20:24 Temperature 37.1 C Heart Rate 70 Heart Rate [ 76 Brachial] Respiratory 24 20 Rate Blood Pressure 121/69 [Right Brachial artery] O2 Saturation 93 If not protocol 6 6 6 : Oxygen Flow, liters/minute 11/27/23 11/27/23 11/27/23 00:18 05:27 07:49 Temperature 36.7 C 37.1 C 37.2 C Heart Rate Heart Rate [ 82 72 81 Brachial] Respiratory 24 18 20 Rate Blood Pressure 113/59 L 130/71 128/77 [Right Brachial artery] O2 Saturation 90 L 96 95 If not protocol 6 6 3.5 : Oxygen Flow, liters/minute 11/27/23 11/27/23 11/27/23 11:23 12:19 14:21 Temperature 37.4 C Heart Rate 79 Heart Rate [ 82 Brachial] Respiratory 20 15 Rate Blood Pressure 118/60 [Right Brachial artery] O2 Saturation 93 If not protocol 2 3.5 3 : Oxygen Flow, liters/minute 11/27/23 15:29 Temperature 37.2 C Heart Rate Heart Rate [ 73 Brachial] Respiratory 18 Rate Blood Pressure 134/67 H [Right Brachial artery] O2 Saturation 93 If not protocol 3.5 : Oxygen Flow, liters/minute Oxygen O2 Source Nasal cannula Oxygen Flow Rate 2 I&O (Last 24 Hrs): Intake and Output Totals x24h 11/25/23 11/26/23 11/27/23 23:59 23:59 23:59 Intake Total 2582.500 2185.000 1339.167 Output Total 670 1424 1600 Balance 1912.500 761.000 -260.833 General: Alert, Oriented x3 HEENT: Mucous membr. moist/pink, Other (wearing O2 via n.c.) Neck: Supple, No JVD Neuro: Alert, Non Focal Cardiovascular: Regular rate, No murmurs Respiratory: Wheezes (R sided, L base rales, L apeces have no air mvm) Abdomen: Soft, No tenderness Extremities: No clubbing, No edema, No tenderness/swelling - Results Results: Laboratory Results WBC 6.9 x10^3/uL (4.8-10.8) 11/23/23 12:24 RBC 4.51 10^6/uL (4.20-5.40) 11/23/23 12:24 Hgb 14.4 g/dL (12.0-16.0) 11/23/23 12:24 Hct 44.7 % (37.0-47.0) 11/23/23 12:24 MCV 99.1 fL (81.0-99.0) H 11/23/23 12:24 MCH 31.9 pg (27.0-31.0) H 11/23/23 12:24 MCHC 32.2 g/dL (32.0-36.0) 11/23/23 12:24 RDW 12.2 % (12.0-15.0) 11/23/23 12:24 Plt Count 269 10^3/uL (130-450) 11/23/23 12:24 MPV 9.6 fL (7.9-10.8) 11/23/23 12:24 Neut # (Auto) 5.8 10^3/uL (1.5-6.6) 11/23/23 12:24 Lymph # (Auto) 0.6 10^3/uL (1.5-3.5) L 11/23/23 12:24 [place] # (Auto) 0.4 10^3/uL (0.0-1.0) 11/23/23 12:24 Eos # (Auto) 0.0 10^3/uL (0.0-0.7) 11/23/23 12:24 Baso # (Auto) 0.0 10^3/uL (0.0-0.1) 11/23/23 12:24 Absolute Nucleated RBC 0.00 x10^3/uL 11/23/23 12:24 Nucleated RBC % 0.0 /100WBC 11/23/23 12:24 VBG pH 7.295 (7.31-7.41) L 11/23/23 12:24 VBG pCO2 56.3 mmHg (41-51) H 11/23/23 12:24 VBG pO2 27.9 mmHg (25-47) 11/23/23 12:24 VBG HCO3 26.8 mmol/L (23-28) 11/23/23 12:24 VBG Total CO2 28.5 mmol/L (24-29) 11/23/23 12:24 VBG O2 Saturation 49.5 % (60-80) L 11/23/23 12:24 VBG Base Excess -0.9 mmol/L (-2 - +2) 11/23/23 12:24 Sodium 131 mmol/L (135-145) L 11/23/23 12:24 Potassium 4.1 mmol/L (3.5-4.5) 11/23/23 12:24 Chloride 93 mmol/L (101-111) L 11/23/23 12:24 Carbon Dioxide 31 mmol/L (21-32) 11/23/23 12:24 Anion Gap 7.0 (6-13) 11/23/23 12:24 BUN 14 mg/dL (6-20) 11/23/23 12:24 Creatinine 0.5 mg/dL (0.6-1.3) L 11/23/23 12:24 Estimated GFR (MDRD) 122 (>89) 11/23/23 12:24 Glucose 116 mg/dL (74-104) H 11/23/23 12:24 Calcium 9.6 mg/dL (8.5-10.3) 11/23/23 12:24 Magnesium 1.7 mg/dL (1.7-2.3) 11/23/23 12:24 Total Bilirubin 0.4 mg/dL (0.2-1.0) 11/23/23 12:24 AST 19 IU/L (10-42) 11/23/23 12:24 ALT 17 IU/L (10-60) 11/23/23 12:24 Alkaline Phosphatase 80 IU/L (42-121) 11/23/23 12:24 Total Protein 7.3 g/dL (6.4-8.9) 11/23/23 12:24 Albumin 4.4 g/dL (3.2-5.5) 11/23/23 12:24 Globulin 2.9 g/dL (2.1-4.2) 11/23/23 12:24 Albumin/Globulin Ratio 1.5 (1.0-2.2) 11/23/23 12:24 Sepsis Event Note (H) - Evaluation Current Stage of Sepsis: Ruled out
[2023-11-27] MEDS: DOCUSATE SODIUM 250 MG CAPSULE PO SCH (20:08)
[2023-11-28] MEDS: cephALEXin 250 MG CAPSULE PO SCH ×2 (00:15→08:12)
[2023-11-28] MEDS: LORazepam 0.5 MG TABLET PO PRN ×3 (00:15→16:34)
[2023-11-28] MEDS: ACETAMINOPHEN 500 MG TABLET PO SCH ×3 (00:15→17:15)
[2023-11-28] MEDS: SODIUM CHLORIDE FLUSH 0.9% 10 ML SYRINGE IVP SCH ×3 (06:44→17:15)
[2023-11-28] MEDS: polyethylene glycoL 3350 17 GM PACKET PO SCH ×2 (08:11→08:12)
[2023-11-28] MEDS: DOCUSATE SODIUM 250 MG CAPSULE PO SCH (08:12)
--- NOTE | 2023-11-28 08:19 | XRAY Report ---
PROCEDURE: Chest 1V INDICATIONS: Patient on water seal for almost 24 hours - pneumo TECHNIQUE: One view of the chest was acquired. COMPARISON: 11/27/2023, 11/26/2023, 11/25/2023. FINDINGS: Surgical changes and devices: Left-sided chest tube is again seen.. Lungs and pleura: There is interval increase in size of patient's known left apical pneumothorax now measures 2 cm in craniocaudal dimension compared to 7.5 mm on previous day. No right-sided pneumotho rax. Mildly increased interstitial lung markings are noted bilaterally unchanged from prior study. No significant pleural effusion. Mediastinum: Mediastinal contours appear normal. Heart size is normal. Bones and chest wall: No suspicious bony lesions. Overlying soft tissues appear unremarkable. IMPRESSION: Interval increase in size of patient's no left apical pneumothorax as described above. Reviewed by: Ector Mtz MD on 11/28/2023 8:18 AM PST Approved by: Ector Mtz MD on 11/28/2023 8:18 AM PST Station ID: [id number]
[2023-11-28] MEDS: predniSONE 20 MG TABLET PO SCH (09:28)
[2023-11-28 09:37] LABS: BASOPHILS % (AUTO) 0.3 %; EOSINOPHILS % (AUTO) 0.3 %; HCT - HEMATOCRIT 45.2 % (37.0-47.0); HGB - HEMOGLOBIN 14.5 g/dL (12.0-16.0); LYMPHOCYTES # (AUTO) 0.9 10^3/uL (1.5-3.5); LYMPHOCYTES % (AUTO) 7.2 %; MEAN CORPUSCULAR HEMOGLOBIN 32.1 pg (27.0-31.0); MEAN CORPUSCULAR HGB CONC 32.1 g/dL (32.0-36.0); MEAN PLATELET VOLUME 9.6 fL (7.9-10.8); MONOCYTES # (AUTO) 0.7 10^3/uL (0.0-1.0); MONOCYTES % (AUTO) 5.6 %; NEUTROPHILS # (AUTO) 10.3 10^3/uL (1.5-6.6); NEUTROPHILS % (AUTO) 86.3 %; PLT - PLATELET COUNT 272 10^3/uL (130-450); RED BLOOD COUNT 4.52 10^6/uL (4.20-5.40); RED CELL DISTRIBUTION WIDTH 12.4 % (12.0-15.0)
[2023-11-28 09:44] LABS: CALCIUM 9.4 mg/dL (8.5-10.3); CREATININE 0.6 mg/dL (0.6-1.3); POTASSIUM 3.6 mmol/L (3.5-4.5)
[2023-11-28] MEDS ORDERED: AMOX/CLAV 875 MG/125 MG TABLET PO SCH (10:00)
[2023-11-28] MEDS: IPRATROPIUM 0.2 MG/ML NEB INH SCH (10:04)
[2023-11-28] MEDS ORDERED: MAGNESIUM SULFATE 2 GRAM 2 GM/50 ML BAG IV ONE (11:48)
--- NOTE | 2023-11-28 11:48 | PROVIDER PROGRESS NOTE ---
Assessment/Plan - Problem List (1) Spontaneous pneumothorax Assessment/Plan: Complete pneumothorax seen on 11/25 CXR so she went to the OR for chest tube placement. Since 11/26 she felt like she is breathing better but has a persistent cough and gets intermttently suddenly breathless. She doesn't want Morphine or another opiates for pain. Since the chest tube was clamped yesterday, she has had more pain in the left upper chest just below the left clavicle, today Today's chest x-ray showed worsening of the left apical pneumothorax, increased in size to 2.5 cm today, from 7 mm yesterday. Plan: Toradol prn and Tylenol prn Chest tube management as per Gen Surg, which was discussed with Dr Bull t chris>> Tube placed back on suction (2) COPD exacerbation Impression: She recently quit smoking on her own (about a month ago). She has no PCP We have her on Duoneb scheduled. And she was on 50 mg of po Prednisone daily. At home she was only on albuterol as needed. Her exam has less wheezing, but worse air mvm on side of pneumothorax Today's chest x-ray showed more interstitial markings and a larger PTX Since being on steroids, she describes feeling sudden anxiety and tremulousness When I offered to give her guaifenesin yesterday she turned it down because it "makes her shaky" Plan: As recommended by RT, I will make the DuoNeb as needed Continue lower dose of Prednisone 50>> 40 mg today, which may be causing anxiety. I taught her pursed lip breathing yesterday and she is using it I advised her to establish with a PCP and recommended Pulmonary Rehab after DCh (3) Acute respiratory failure with hypoxia Impression: She was requiring 4 to 5 L nasal cannula and that is down to 1-2L O2 n.c. Her CXR today shows poss CHF Plan: I will stop her iv fluids Cont suppl O2, target O2 sat >88% in a COPDer I have asked RT to give her humidified nasal cannula supplemental O2 She will need an oximetry walk test on day of Dch (4) Bronchitis Impression: She still has copious secretions coughing up green sputum. A spt sample was sent for culture Plan: Stop Keflex. Change to Augmentin twice daily. The first tablet of p.o. Augmentin gave her nausea and abdominal pain and she wants to take it with food which will be ordered (5) Celiac disease - K90.0 Impression: This was learned by Nutrition and then passed on to me today Plan: Diet will be changed to a celiac diet - Current Meds Current Meds: Current Medications Generic Name Dose Route Start Last Admin Trade Name Freq PRN Reason Stop Dose Admin Acetaminophen 650 mg 11/23/23 21:33 11/27/23 14:11 Acetaminophen 325 Mg Tablet PO 650 mg Q4HR PRN Administration Pain 1 to 4, or Fever Acetaminophen 500 mg 11/24/23 08:00 11/28/23 08:11 Acetaminophen 500 Mg Tablet PO 500 mg Q8H MYCHAL Administration Amoxicillin/Clavulanate Potassium 1 tab 11/28/23 10:00 11/28/23 09:29 Amox/Clav 875 Mg/125 Mg Tablet PO 1 tab BID MYCHAL Administration Docusate Sodium 250 - 500 mg 11/27/23 21:00 11/28/23 08:12 Docusate Sodium 250 Mg Capsule PO 250 mg DAILY MYCHAL Administration Ipratropium [place] 0.5 mg 11/26/23 14:00 11/28/23 10:04 Ipratropium 0.2 Mg/Ml Neb INH 0.5 mg TID MYCHAL Administration Ketorolac Tromethamine 30 mg 11/26/23 12:49 11/26/23 13:09 Ketorolac 30 Mg/Ml Vial IVP 12/01/23 12:48 30 mg Q6HR PRN Administration Severe Pain (Level 7-10) Lorazepam 0.5 mg 11/23/23 21:37 11/28/23 08:12 Lorazepam 0.5 Mg Tablet PO 0.5 mg Q8HR PRN Administration Anxiety Polyethylene Glycol 17 gm 11/26/23 17:00 11/28/23 08:12 Polyethylene Glycol 3350 17 Gm Packet PO 17 gm DAILY MYCHAL Administration Prednisone 40 mg 11/28/23 09:00 11/28/23 09:28 Prednisone 20 Mg Tablet PO 40 mg DAILY MYCHAL Administration Prochlorperazine Edisylate 10 mg 11/23/23 21:33 11/24/23 08:52 Prochlorperazine 10 Mg/2 Ml Vial IVP 10 mg Q6HR PRN Administration Nausea / Vomiting Sodium Chloride 10 ml 11/23/23 21:33 11/26/23 13:08 Sodium Chloride Flush 0.9% 10 Ml Syringe IVP 10 ml PRN PRN Administration NEEDED PER PROVIDER ORDERS Sodium Chloride 10 ml 11/24/23 01:00 11/28/23 08:11 Sodium Chloride Flush 0.9% 10 Ml Syringe IVP 10 ml 0100,0900,1700 [facility] Administration - Lab Result Fish Bone Diagrams: 11/28/23 09:25 11/28/23 09:25 - Additional Planning My Orders: My Active Orders 11/27/23 Dinner Gluten Free Diet [DIET] 11/27/23 21:00 Docusate Sodium 250Mg Capsule [Colace 250Mg Capsule] 250 - 500 mg PO DAILY 11/28/23 09:00 predniSONE [Deltasone] 40 mg PO DAILY 11/28/23 09:48 CUL, RESPIRATORY [RM] Stat 11/28/23 10:00 Amox/Clav 875/125 [Augmentin 875/125 Tab] 1 tab PO BID Subjective - Subjective Patient Reports: Other (She had poor sleep, woke up every 1 and half hours from anxiety and left-sided chest pain. Her cough continues but phlegm has turned from green to yellow. She had nausea and abdominal pain after taking the first Augmentin today and wants to take it with food. Nasal cannula is causing pain in nare) Objective Vital Signs: Vital Signs - 24 hr 11/27/23 11/27/23 11/27/23 12:19 14:21 15:29 Temperature 37.4 C 37.2 C Heart Rate 79 Heart Rate [ 82 73 Brachial] Respiratory 20 15 18 Rate Blood Pressure 118/60 134/67 H [Right Brachial artery] O2 Saturation 93 93 If not protocol 3.5 3 3.5 : Oxygen Flow, liters/minute 11/27/23 11/27/23 11/28/23 19:35 19:50 05:58 Temperature 37.2 C 37.2 C Heart Rate 76 Heart Rate [ 77 81 Brachial] Respiratory 20 20 18 Rate Blood Pressure 124/67 133/68 H [Right Brachial artery] O2 Saturation 92 92 If not protocol 4 2 2 : Oxygen Flow, liters/minute 11/28/23 11/28/23 07:46 10:09 Temperature 37.1 C Heart Rate 78 Heart Rate [ 75 Brachial] Respiratory 22 17 Rate Blood Pressure 145/75 H [Right Brachial artery] O2 Saturation 91 L If not protocol 2 2 : Oxygen Flow, liters/minute Oxygen O2 Source Nasal cannula Oxygen Flow Rate 2 I&O (Last 24 Hrs): Intake and Output Totals x24h 11/26/23 11/27/23 11/28/23 23:59 23:59 23:59 Intake Total 2185.000 2518.167 1080 Output Total 1424 2280 800 Balance 761.000 238.167 280 General: Alert, Oriented x3, Other (Appears fatigued. Has muscle wasting (BMI is 20).) HEENT: Mucous membr. moist/pink, Other (wearing O2 via n.c.) Neck: Supple, No JVD Neuro: Alert, Non Focal Cardiovascular: Regular rate, No murmurs (Distant heart sounds due to COPD) Respiratory: Other (Diminished air movement entire left side) Abdomen: Soft, No tenderness Extremities: No clubbing, No edema, No tenderness/swelling - Results Results: Laboratory Results WBC 12.0 x10^3/uL (4.8-10.8) H 11/28/23 09:25 RBC 4.52 10^6/uL (4.20-5.40) 11/28/23 09:25 Hgb 14.5 g/dL (12.0-16.0) 11/28/23 09:25 Hct 45.2 % (37.0-47.0) 11/28/23 09:25 MCV 100.0 fL (81.0-99.0) H 11/28/23 09:25 MCH 32.1 pg (27.0-31.0) H 11/28/23 09:25 MCHC 32.1 g/dL (32.0-36.0) 11/28/23 09:25 RDW 12.4 % (12.0-15.0) 11/28/23 09:25 Plt Count 272 10^3/uL (130-450) 11/28/23 09:25 MPV 9.6 fL (7.9-10.8) 11/28/23 09:25 Neut # (Auto) 10.3 10^3/uL (1.5-6.6) H 11/28/23 09:25 Lymph # (Auto) 0.9 10^3/uL (1.5-3.5) L 11/28/23 09:25 [place] # (Auto) 0.7 10^3/uL (0.0-1.0) 11/28/23 09:25 Eos # (Auto) 0.0 10^3/uL (0.0-0.7) 11/28/23 09:25 Baso # (Auto) 0.0 10^3/uL (0.0-0.1) 11/28/23 09:25 Absolute Nucleated RBC 0.00 x10^3/uL 11/28/23 09:25 Nucleated RBC % 0.0 /100WBC 11/28/23 09:25 VBG pH 7.295 (7.31-7.41) L 11/23/23 12:24 VBG pCO2 56.3 mmHg (41-51) H 11/23/23 12:24 VBG pO2 27.9 mmHg (25-47) 11/23/23 12:24 VBG HCO3 26.8 mmol/L (23-28) 11/23/23 12:24 VBG Total CO2 28.5 mmol/L (24-29) 11/23/23 12:24 VBG O2 Saturation 49.5 % (60-80) L 11/23/23 12:24 VBG Base Excess -0.9 mmol/L (-2 - +2) 11/23/23 12:24 Sodium 134 mmol/L (135-145) L 11/28/23 09:25 Potassium 3.6 mmol/L (3.5-4.5) 11/28/23 09:25 Chloride 96 mmol/L (101-111) L 11/28/23 09:25 Carbon Dioxide 31 mmol/L (21-32) 11/28/23 09:25 Anion Gap 7.0 (6-13) 11/28/23 09:25 BUN 13 mg/dL (6-20) 11/28/23 09:25 Creatinine 0.6 mg/dL (0.6-1.3) 11/28/23 09:25 Estimated GFR (MDRD) 99 (>89) 11/28/23 09:25 Glucose 150 mg/dL (74-104) H 11/28/23 09:25 Calcium 9.4 mg/dL (8.5-10.3) 11/28/23 09:25 Magnesium 1.6 mg/dL (1.7-2.3) L 11/28/23 09:25 Total Bilirubin 0.4 mg/dL (0.2-1.0) 11/23/23 12:24 AST 19 IU/L (10-42) 11/23/23 12:24 ALT 17 IU/L (10-60) 11/23/23 12:24 Alkaline Phosphatase 80 IU/L (42-121) 11/23/23 12:24 Total Protein 7.3 g/dL (6.4-8.9) 11/23/23 12:24 Albumin 4.4 g/dL (3.2-5.5) 11/23/23 12:24 Globulin 2.9 g/dL (2.1-4.2) 11/23/23 12:24 Albumin/Globulin Ratio 1.5 (1.0-2.2) 11/23/23 12:24 Vitamin B12 469 pg/mL (180-914) 11/28/23 09:25 Folate 6.2 ng/mL (5.90 - >24.8) 11/28/23 09:25 Sepsis Event Note (H) - Evaluation Current Stage of Sepsis: Ruled out
--- NOTE | 2023-11-28 13:53 | XRAY Report ---
PROCEDURE: Chest 1V INDICATIONS: Increased chest pain and SOA TECHNIQUE: One view of the chest was acquired. COMPARISON: Chest x-ray 11/28/2023 FINDINGS: Surgical changes and devices: Left chest tube overlies the medial left upper lobe. Lungs and pleura: Persistent mild left apical pneumothorax, slightly decreased measuring 1.8 cm comp ared to 2.4 and prior exam. Mediastinum: Mediastinal contours appear normal. Heart size is normal. Bones and chest wall: No suspicious bony lesions. Overlying soft tissues appear unremarkable. IMPRESSION: Persistent although slightly decreased size of left apical pneumothorax. Reviewed by: Ina Teixeira MD on 11/28/2023 1:51 PM PST Approved by: Ina Teixeira MD on 11/28/2023 1:51 PM PST Station ID: [id number]
[2023-11-28] MEDS: PROCHLORPERAZINE 10 MG/2 ML VIAL IVP PRN ×2 (15:45→22:01)
--- NOTE | 2023-11-28 17:06 | PROVIDER PROGRESS NOTE ---
Assessment/Plan - Problem List (1) Pneumothorax Qualifiers: Pneumothorax type: spontaneous, primary Qualified Code(s): J93.11 - Primary spontaneous pneumothorax Assessment/Plan: Patient is doing very well after expansion of her LEFT lung with LEFT tube thoracostomy however water seal resulted in recurrent pneumothorax. Patient place back on 20 cm suction and new CXR showing improvement but not complete resolution. Patient is adamant that she has quit smoking and I believe her. She should not require help with tobacco cessation. I again explained that she will require 6 weeks before she feels markedly better. I will see her tomorrow and explained that I would be signing out her care. Recheck chest Xray in AM. If lung refuses to stay up may need transfer for chest surgeon for stapling of bleb. - Current Meds Current Meds: Current Medications Generic Name Dose Route Start Last Admin Trade Name Freq PRN Reason Stop Dose Admin Acetaminophen 650 mg 11/23/23 21:33 11/27/23 14:11 Acetaminophen 325 Mg Tablet PO 650 mg Q4HR PRN Administration Pain 1 to 4, or Fever Acetaminophen 500 mg 11/24/23 08:00 11/28/23 08:11 Acetaminophen 500 Mg Tablet PO 500 mg Q8H MYCHAL Administration Docusate Sodium 250 - 500 mg 11/27/23 21:00 11/28/23 08:12 Docusate Sodium 250 Mg Capsule PO 250 mg DAILY MYCHAL Administration Ketorolac Tromethamine 30 mg 11/26/23 12:49 11/26/23 13:09 Ketorolac 30 Mg/Ml Vial IVP 12/01/23 12:48 30 mg Q6HR PRN Administration Severe Pain (Level 7-10) Lorazepam 0.5 mg 11/23/23 21:37 11/28/23 16:34 Lorazepam 0.5 Mg Tablet PO 0.5 mg Q8HR PRN Administration Anxiety Polyethylene Glycol 17 gm 11/26/23 17:00 11/28/23 08:12 Polyethylene Glycol 3350 17 Gm Packet PO 17 gm DAILY MYCHAL Administration Prednisone 40 mg 11/28/23 09:00 11/28/23 09:28 Prednisone 20 Mg Tablet PO 40 mg DAILY MYCHAL Administration Prochlorperazine Edisylate 10 mg 11/23/23 21:33 11/28/23 15:45 Prochlorperazine 10 Mg/2 Ml Vial IVP 10 mg Q6HR PRN Administration Nausea / Vomiting Sodium Chloride 10 ml 11/23/23 21:33 11/26/23 13:08 Sodium Chloride Flush 0.9% 10 Ml Syringe IVP 10 ml PRN PRN Administration NEEDED PER PROVIDER ORDERS Sodium Chloride 10 ml 11/24/23 01:00 11/28/23 08:11 Sodium Chloride Flush 0.9% 10 Ml Syringe IVP 10 ml 0100,0900,1700 MYCHAL Administration - Lab Result Fish Bone Diagrams: 11/28/23 09:25 11/28/23 09:25 - Additional Planning My Orders: My Active Orders 11/28/23 13:45 Miscellaenous Nursing Order [RC] QSHIFT Subjective - Subjective Patient Reports: Feeling Better (Disappointed that water seal did not work. Wants to know about probiotics.) Objective Vital Signs: Vital Signs - 24 hr 11/27/23 11/27/23 11/28/23 19:35 19:50 05:58 Temperature 37.2 C 37.2 C Heart Rate 76 Heart Rate [ 77 81 Brachial] Respiratory 20 20 18 Rate Blood Pressure 124/67 133/68 H [Right Brachial artery] O2 Saturation 92 92 If not protocol 4 2 2 : Oxygen Flow, liters/minute 11/28/23 11/28/23 11/28/23 07:46 10:09 15:53 Temperature 37.1 C 37.1 C Heart Rate 78 Heart Rate [ 75 85 Brachial] Respiratory 22 17 16 Rate Blood Pressure 145/75 H 135/68 H [Right Brachial artery] O2 Saturation 91 L 92 If not protocol 2 2 2 : Oxygen Flow, liters/minute Oxygen O2 Source Nasal cannula Oxygen Flow Rate 2 I&O (Last 24 Hrs): Intake and Output Totals x24h 11/26/23 11/27/23 11/28/23 23:59 23:59 23:59 Intake Total 2185.000 2518.167 1720 Output Total 1424 2280 1100 Balance 761.000 238.167 620 General: Alert, Oriented x3, Cooperative HEENT: Atraumatic, Mucous membr. moist/pink Cardiovascular: Regular rate Respiratory: Chest non-tender, No respiratory distress, Breath sounds nml, Other (Slightly decreased on LEFT as opposed to RIGHT.) Abdomen: Normal bowel sounds - Results Results: Laboratory Results WBC 12.0 x10^3/uL (4.8-10.8) H 11/28/23 09:25 RBC 4.52 10^6/uL (4.20-5.40) 11/28/23 09:25 Hgb 14.5 g/dL (12.0-16.0) 11/28/23 09:25 Hct 45.2 % (37.0-47.0) 11/28/23 09:25 MCV 100.0 fL (81.0-99.0) H 11/28/23 09:25 MCH 32.1 pg (27.0-31.0) H 11/28/23 09:25 MCHC 32.1 g/dL (32.0-36.0) 11/28/23 09:25 RDW 12.4 % (12.0-15.0) 11/28/23 09:25 Plt Count 272 10^3/uL (130-450) 11/28/23 09:25 MPV 9.6 fL (7.9-10.8) 11/28/23 09:25 Neut # (Auto) 10.3 10^3/uL (1.5-6.6) H 11/28/23 09:25 Lymph # (Auto) 0.9 10^3/uL (1.5-3.5) L 11/28/23 09:25 [place] # (Auto) 0.7 10^3/uL (0.0-1.0) 11/28/23 09:25 Eos # (Auto) 0.0 10^3/uL (0.0-0.7) 11/28/23 09:25 Baso # (Auto) 0.0 10^3/uL (0.0-0.1) 11/28/23 09:25 Absolute Nucleated RBC 0.00 x10^3/uL 11/28/23 09:25 Nucleated RBC % 0.0 /100WBC 11/28/23 09:25 VBG pH 7.295 (7.31-7.41) L 11/23/23 12:24 VBG pCO2 56.3 mmHg (41-51) H 11/23/23 12:24 VBG pO2 27.9 mmHg (25-47) 11/23/23 12:24 VBG HCO3 26.8 mmol/L (23-28) 11/23/23 12:24 VBG Total CO2 28.5 mmol/L (24-29) 11/23/23 12:24 VBG O2 Saturation 49.5 % (60-80) L 11/23/23 12:24 VBG Base Excess -0.9 mmol/L (-2 - +2) 11/23/23 12:24 Sodium 134 mmol/L (135-145) L 11/28/23 09:25 Potassium 3.6 mmol/L (3.5-4.5) 11/28/23 09:25 Chloride 96 mmol/L (101-111) L 11/28/23 09:25 Carbon Dioxide 31 mmol/L (21-32) 11/28/23 09:25 Anion Gap 7.0 (6-13) 11/28/23 09:25 BUN 13 mg/dL (6-20) 11/28/23 09:25 Creatinine 0.6 mg/dL (0.6-1.3) 11/28/23 09:25 Estimated GFR (MDRD) 99 (>89) 11/28/23 09:25 Glucose 150 mg/dL (74-104) H 11/28/23 09:25 Calcium 9.4 mg/dL (8.5-10.3) 11/28/23 09:25 Magnesium 1.6 mg/dL (1.7-2.3) L 11/28/23 09:25 Total Bilirubin 0.4 mg/dL (0.2-1.0) 11/23/23 12:24 AST 19 IU/L (10-42) 11/23/23 12:24 ALT 17 IU/L (10-60) 11/23/23 12:24 Alkaline Phosphatase 80 IU/L (42-121) 11/23/23 12:24 Total Protein 7.3 g/dL (6.4-8.9) 11/23/23 12:24 Albumin 4.4 g/dL (3.2-5.5) 11/23/23 12:24 Globulin 2.9 g/dL (2.1-4.2) 11/23/23 12:24 Albumin/Globulin Ratio 1.5 (1.0-2.2) 11/23/23 12:24 Vitamin B12 469 pg/mL (180-914) 11/28/23 09:25 Folate 6.2 ng/mL (5.90 - >24.8) 11/28/23 09:25 Sepsis Event Note (H) - Evaluation Current Stage of Sepsis: Ruled out ABX Reporting Has patient been on IV antibiotics over the past 48 hours?: Yes
[2023-11-28] MEDS: IPRATROPIUM 0.2 MG/ML NEB INH PRN (19:51)
[2023-11-28] MEDS: MONTELUKAST 10 MG TABLET PO SCH (20:31)
[2023-11-28] MEDS: hydrOXYzine PAMOATE 25 MG CAPSULE PO PRN (20:31)
[2023-11-28] MEDS: AMOX/CLAV 875 MG/125 MG TABLET PO SCH (20:31)
[2023-11-29] MEDS: SODIUM CHLORIDE FLUSH 0.9% 10 ML SYRINGE IVP SCH ×4 (00:05→23:36)
[2023-11-29] MEDS: ACETAMINOPHEN 500 MG TABLET PO SCH ×4 (00:07→23:36)
[2023-11-29] MEDS: ACETAMINOPHEN 325 MG TABLET PO PRN (05:53)
[2023-11-29] MEDS: IPRATROPIUM 0.2 MG/ML NEB INH PRN (07:37)
[2023-11-29] MEDS: SACCHAROMYCES BOULARDII 250 MG CAPSULE PO SCH ×2 (08:49→17:07)
[2023-11-29] MEDS: predniSONE 20 MG TABLET PO SCH (08:49)
[2023-11-29] MEDS: AMOX/CLAV 875 MG/125 MG TABLET PO SCH (08:49)
[2023-11-29] MEDS: DOCUSATE SODIUM 250 MG CAPSULE PO SCH (08:49)
[2023-11-29] MEDS: LORazepam 0.5 MG TABLET PO PRN ×2 (09:53→19:21)
[2023-11-29] MEDS: PRENATAL VITAMIN TABLET PO SCH (09:54)
--- NOTE | 2023-11-29 11:10 | XRAY Report ---
PROCEDURE: Chest 1V INDICATIONS: CT tube disconnected, F/U PTX and COPD TECHNIQUE: One view of the chest was acquired. COMPARISON: None. FINDINGS: Surgical changes and devices: Left-sided chest tube. Lungs and pleura: Stable small left apical pneumothorax. Emphysema. Mediastinum: Mediastinal contours appear normal. Heart size is normal. Bones and chest wall: No suspicious bony lesions. Overlying soft tissues appear unremarkable. IMPRESSION: Stable small left apical pneumothorax, with left-sided chest tube in place. Reviewed by: Joey Oneal MD on 11/29/2023 11:[address] [facility] Approved by: Joey Oneal MD on 11/29/2023 11:09 AM PST Station ID: [id number]
--- NOTE | 2023-11-29 12:02 | PROVIDER PROGRESS NOTE ---
Assessment/Plan - Problem List (1) Pneumothorax Qualifiers: Pneumothorax type: spontaneous, primary Qualified Code(s): J93.11 - Primary spontaneous pneumothorax Assessment/Plan: Patient is doing very well after expansion of her LEFT lung with LEFT tube thoracostomy however water seal resulted in recurrent pneumothoraxy yesterday. Patient place back on 20 cm suction and new CXR showing improvement but not complete resolution. Chest X-ray today showed small stable apical pneumothorax. I have ordered the patient back on water seal in the AM. I am signing out her care to Dr. Portillo. Recheck chest Xray in AM. If lung refuses to stay up may need transfer for chest surgeon for stapling of bleb. - Current Meds Current Meds: Current Medications Generic Name Dose Route Start Last Admin Trade Name Freq PRN Reason Stop Dose Admin Acetaminophen 650 mg 11/23/23 21:33 11/29/23 05:53 Acetaminophen 325 Mg Tablet PO 650 mg Q4HR PRN Administration Pain 1 to 4, or Fever Acetaminophen 500 mg 11/24/23 08:00 11/29/23 08:49 Acetaminophen 500 Mg Tablet PO 500 mg Q8H MYCHAL Administration Amoxicillin/Clavulanate Potassium 1 tab 11/28/23 15:44 11/29/23 08:49 Amox/Clav 875 Mg/125 Mg Tablet PO 1 tab BID MYCHAL Administration Docusate Sodium 250 - 500 mg 11/27/23 21:00 11/29/23 08:49 Docusate Sodium 250 Mg Capsule PO 250 mg DAILY MYCHAL Administration Hydroxyzine Pamoate 25 mg 11/23/23 21:25 11/28/23 20:31 Hydroxyzine Pamoate 25 Mg Capsule PO 25 mg Q8H PRN Administration anxiety or sleep Ipratropium [place] 0.5 mg 11/28/23 14:06 11/29/23 07:37 Ipratropium 0.2 Mg/Ml Neb INH 0.5 mg TID PRN Administration Wheezing Ketorolac Tromethamine 30 mg 11/26/23 12:49 11/26/23 13:09 Ketorolac 30 Mg/Ml Vial IVP 12/01/23 12:48 30 mg Q6HR PRN Administration Severe Pain (Level 7-10) Lorazepam 0.5 mg 11/23/23 21:37 11/29/23 09:53 Lorazepam 0.5 Mg Tablet PO 0.5 mg Q8HR PRN Administration Anxiety Montelukast Sodium 10 mg 11/28/23 21:00 11/28/23 20:31 Montelukast 10 Mg Tablet PO 10 mg QPM MYCHAL Administration Polyethylene Glycol 17 gm 11/26/23 17:00 11/28/23 08:12 Polyethylene Glycol 3350 17 Gm Packet PO 17 gm DAILY MYCHAL Administration Prednisone 40 mg 11/28/23 09:00 11/29/23 08:49 Prednisone 20 Mg Tablet PO 40 mg DAILY MYCHAL Administration Multivit/Folic Acid/Iron 1 tab 11/29/23 10:00 11/29/23 09:54 Vitamin Tablet PO 1 tab DAILYWM MYCHAL Administration Prochlorperazine Edisylate 10 mg 11/23/23 21:33 11/28/23 22:01 Prochlorperazine 10 Mg/2 Ml Vial IVP 10 mg Q6HR PRN Administration Nausea / Vomiting Saccharomyces Boulardii 250 mg 11/29/23 08:00 11/29/23 08:49 Saccharomyces Boulardii 250 Mg Capsule PO 250 mg BIDWM MYCHAL Administration Sodium Chloride 10 ml 11/23/23 21:33 11/26/23 13:08 Sodium Chloride Flush 0.9% 10 Ml Syringe IVP 10 ml PRN PRN Administration NEEDED PER PROVIDER ORDERS Sodium Chloride 10 ml 11/24/23 01:00 11/29/23 08:50 Sodium Chloride Flush 0.9% 10 Ml Syringe IVP 10 ml 0100,0900,1700 MYCHAL Administration - Lab Result Lab results reviewed: Yes Fish Bone Diagrams: 11/28/23 09:25 11/28/23 09:25 - Additional Planning My Orders: My Active Orders 11/28/23 13:45 Miscellaenous Nursing Order [RC] QSHIFT 11/29/23 08:00 Saccharomyces Boulardii [Florastor] 250 mg PO BIDWM Subjective - Subjective Patient Reports: Feeling Better, Other (Mildly annoyed at how long this is taking.) Objective Vital Signs: Vital Signs - 24 hr 11/28/23 11/28/23 11/28/23 15:53 19:50 19:52 Temperature 37.1 C Heart Rate 78 Heart Rate [ 85 Brachial] Respiratory 16 20 Rate Blood Pressure 135/68 H [Right Brachial artery] O2 Saturation 92 If not protocol 2 2 2 : Oxygen Flow, liters/minute 11/28/23 11/29/23 11/29/23 21:00 00:00 07:35 Temperature 37.0 C 37.1 C 37.2 C Heart Rate Heart Rate [ 79 83 82 Brachial] Respiratory 18 20 18 Rate Blood Pressure 136/60 H 143/71 H 135/79 H [Right Brachial artery] O2 Saturation 93 94 92 If not protocol 2 2 2 : Oxygen Flow, liters/minute 11/29/23 07:41 Temperature Heart Rate 80 Heart Rate [ Brachial] Respiratory 20 Rate Blood Pressure [Right Brachial artery] O2 Saturation If not protocol 2 : Oxygen Flow, liters/minute Oxygen O2 Source Nasal cannula Oxygen Flow Rate 2 I&O (Last 24 Hrs): Intake and Output Totals x24h 11/27/23 11/28/23 11/29/23 23:59 23:59 23:59 Intake Total 2518.167 1870 360 Output Total 2280 2500 1150 Balance 238.169 -230 -920 General: Alert, Oriented x3, Cooperative HEENT: Atraumatic Neuro: Alert Cardiovascular: Regular rate Respiratory: Chest non-tender, No respiratory distress, Breath sounds nml (Somewhat decreased throughout but definitely present.) Abdomen: Normal bowel sounds - Results Results: Laboratory Results WBC 12.0 x10^3/uL (4.8-10.8) H 11/28/23 09:25 RBC 4.52 10^6/uL (4.20-5.40) 11/28/23 09:25 Hgb 14.5 g/dL (12.0-16.0) 11/28/23 09:25 Hct 45.2 % (37.0-47.0) 11/28/23 09:25 MCV 100.0 fL (81.0-99.0) H 11/28/23 09:25 MCH 32.1 pg (27.0-31.0) H 11/28/23 09:25 MCHC 32.1 g/dL (32.0-36.0) 11/28/23 09:25 RDW 12.4 % (12.0-15.0) 11/28/23 09:25 Plt Count 272 10^3/uL (130-450) 11/28/23 09:25 MPV 9.6 fL (7.9-10.8) 11/28/23 09:25 Neut # (Auto) 10.3 10^3/uL (1.5-6.6) H 11/28/23 09:25 Lymph # (Auto) 0.9 10^3/uL (1.5-3.5) L 11/28/23 09:25 [place] # (Auto) 0.7 10^3/uL (0.0-1.0) 11/28/23 09:25 Eos # (Auto) 0.0 10^3/uL (0.0-0.7) 11/28/23 09:25 Baso # (Auto) 0.0 10^3/uL (0.0-0.1) 11/28/23 09:25 Absolute Nucleated RBC 0.00 x10^3/uL 11/28/23 09:25 Nucleated RBC % 0.0 /100WBC 11/28/23 09:25 VBG pH 7.295 (7.31-7.41) L 11/23/23 12:24 VBG pCO2 56.3 mmHg (41-51) H 11/23/23 12:24 VBG pO2 27.9 mmHg (25-47) 11/23/23 12:24 VBG HCO3 26.8 mmol/L (23-28) 11/23/23 12:24 VBG Total CO2 28.5 mmol/L (24-29) 11/23/23 12:24 VBG O2 Saturation 49.5 % (60-80) L 11/23/23 12:24 VBG Base Excess -0.9 mmol/L (-2 - +2) 11/23/23 12:24 Sodium 134 mmol/L (135-145) L 11/28/23 09:25 Potassium 3.6 mmol/L (3.5-4.5) 11/28/23 09:25 Chloride 96 mmol/L (101-111) L 11/28/23 09:25 Carbon Dioxide 31 mmol/L (21-32) 11/28/23 09:25 Anion Gap 7.0 (6-13) 11/28/23 09:25 BUN 13 mg/dL (6-20) 11/28/23 09:25 Creatinine 0.6 mg/dL (0.6-1.3) 11/28/23 09:25 Estimated GFR (MDRD) 99 (>89) 11/28/23 09:25 Glucose 150 mg/dL (74-104) H 11/28/23 09:25 Calcium 9.4 mg/dL (8.5-10.3) 11/28/23 09:25 Magnesium 1.6 mg/dL (1.7-2.3) L 11/28/23 09:25 Total Bilirubin 0.4 mg/dL (0.2-1.0) 11/23/23 12:24 AST 19 IU/L (10-42) 11/23/23 12:24 ALT 17 IU/L (10-60) 11/23/23 12:24 Alkaline Phosphatase 80 IU/L (42-121) 11/23/23 12:24 Total Protein 7.3 g/dL (6.4-8.9) 11/23/23 12:24 Albumin 4.4 g/dL (3.2-5.5) 11/23/23 12:24 Globulin 2.9 g/dL (2.1-4.2) 11/23/23 12:24 Albumin/Globulin Ratio 1.5 (1.0-2.2) 11/23/23 12:24 Vitamin B12 469 pg/mL (180-914) 11/28/23 09:25 Folate 6.2 ng/mL (5.90 - >24.8) 11/28/23 09:25 Sepsis Event Note (H) - Evaluation Current Stage of Sepsis: Ruled out ABX Reporting Has patient been on IV antibiotics over the past 48 hours?: No
--- NOTE | 2023-11-29 12:41 | PROVIDER PROGRESS NOTE ---
Assessment/Plan - Problem List (1) Spontaneous pneumothorax Assessment/Plan: Complete pneumothorax seen on 11/25 CXR so she went to the OR for chest tube placement. Since 11/26 she felt like she is breathing up and down better but has a persistent cough and gets intermittently suddenly breathless and gets i ntermittent L chest pain. She doesn't want Morphine or another opiates for pain. Yesterday's chest x-ray showed worsening of the left apical pneumothorax, increased in size to 2.5 cm today, from 7 mm. Since the chest tube was placed back on suction yesterday, she has felt better Plan: Toradol prn and Tylenol prn Chest tube management as per Gen Surg. He wants daily CXRs. He writes that she may need transfer to a larger facility, for stapling of the bleb. I updated the patient and her son at bedside, about the plan and the potential for transfer (2) Haemophilus infection Assessment/Plan: She still has copious secretions coughing up green sputum. I therefore changed her Keflex to Augmentin 2 days ago I also offered to give her guaifenesin, but she turned it down because it "makes her shaky" Each tablet of p.o. Augmentin gives her nausea and abdominal pain and she has requested to take it with food which was ordered, discussed with Music Engineer. A spt sample was sent for culture and is growing Haemophilus parainfluenza, and expected sens are listed Plan: Today she told me that Amoxicillin gives her the most abdominal pain of any antibiotic that she ever takes, and since Augmentin is related, I will stop the Augmentin I will give her 3 days of IV Zithromax 500 mg daily. Discussed with pharmacy (3) COPD exacerbation Impression: She recently quit smoking on her own (about a month ago). She has no PCP. At home she was only on albuterol as needed. We had her on Duoneb scheduled>> now prn. And we started her on 50 mg of po Prednisone daily>> down to 40 mg since yesterday. Since being on steroids, she describes feeling sudden anxiety and tremulousness, so the Pred dose was decreased When I offered to give her guaifenesin she turned it down because it "makes her shaky" Her exam has less wheezing, better air mvm except over the pneumothorax (L apex) Plan: Continue Duonebs, Prednisone I taught her pursed lip breathing and she is using it I advised her to establish with a PCP and have also recommended Pulmonary Rehab after DCh (4) Acute respiratory failure with hypoxia Impression: She was requiring 4 to 5 L nasal cannula and that is down to 1-2L O2 n.c. Her CXR on 11/28 today showed poss CHF, so her iv fluids since adm were stopped then. I asked RT to give her humidified nasal cannula supplemental O2, but sh\\e did no t like "the smell of that tubing" Plan: Cont suppl O2, with target O2 sat >88% in a COPDer If she is Dch to home, she will need an oximetry walk test on day of Dch (5) Celiac disease - K90.0 Impression: This was not in her chart, was learned by Music Engineer and then passed on to me Plan: Diet was changed to a celiac diet (6) Anxiety Impression: She has been apologizing that she is so anxious ever since admission. She then shared with me that she has a long history of anxiety and used to be on Paxil, took it for 9 years, had terrible panic attacks as she tapered herself off over 12 months. She has been on no anxiolytic for 12 years Plan: I offered her to consider me starting her on venlafaxine or Lexapro and she and her son at bedside will talk about - Current Meds Current Meds: Current Medications Generic Name Dose Route Start Last Admin Trade Name Freq PRN Reason Stop Dose Admin Acetaminophen 650 mg 11/23/23 21:33 11/29/23 05:53 Acetaminophen 325 Mg Tablet PO 650 mg Q4HR PRN Administration Pain 1 to 4, or Fever Acetaminophen 500 mg 11/24/23 08:00 11/29/23 08:49 Acetaminophen 500 Mg Tablet PO 500 mg Q8H MYCHAL Administration Amoxicillin/Clavulanate Potassium 1 tab 11/28/23 15:44 11/29/23 08:49 Amox/Clav 875 Mg/125 Mg Tablet PO 1 tab BID MYCHAL Administration Docusate Sodium 250 - 500 mg 11/27/23 21:00 11/29/23 08:49 Docusate Sodium 250 Mg Capsule PO 250 mg DAILY MYCHAL Administration Hydroxyzine Pamoate 25 mg 11/23/23 21:25 11/28/23 20:31 Hydroxyzine Pamoate 25 Mg Capsule PO 25 mg Q8H PRN Administration anxiety or sleep Ipratropium Cope 0.5 mg 11/28/23 14:06 11/29/23 07:37 Ipratropium 0.2 Mg/Ml Neb INH 0.5 mg TID PRN Administration Wheezing Ketorolac Tromethamine 30 mg 11/26/23 12:49 11/26/23 13:09 Ketorolac 30 Mg/Ml Vial IVP 12/01/23 12:48 30 mg Q6HR PRN Administration Severe Pain (Level 7-10) Lorazepam 0.5 mg 11/23/23 21:37 11/29/23 09:53 Lorazepam 0.5 Mg Tablet PO 0.5 mg Q8HR PRN Administration Anxiety Montelukast Sodium 10 mg 11/28/23 21:00 11/28/23 20:31 Montelukast 10 Mg Tablet PO 10 mg QPM MYCHAL Administration Polyethylene Glycol 17 gm 11/26/23 17:00 11/28/23 08:12 Polyethylene Glycol 3350 17 Gm Packet PO 17 gm DAILY MYCHAL Administration Prednisone 40 mg 11/28/23 09:00 11/29/23 08:49 Prednisone 20 Mg Tablet PO 40 mg DAILY MYCHAL Administration Multivit/Folic Acid/Iron 1 tab 11/29/23 10:00 11/29/23 09:54 Vitamin Tablet PO 1 tab DAILYWM MYCHAL Administration Prochlorperazine Edisylate 10 mg 11/23/23 21:33 11/28/23 22:01 Prochlorperazine 10 Mg/2 Ml Vial IVP 10 mg Q6HR PRN Administration Nausea / Vomiting Saccharomyces Boulardii 250 mg 11/29/23 08:00 11/29/23 08:49 Saccharomyces Boulardii 250 Mg Capsule PO 250 mg BIDWM MYCHAL Administration Sodium Chloride 10 ml 11/23/23 21:33 11/26/23 13:08 Sodium Chloride Flush 0.9% 10 Ml Syringe IVP 10 ml PRN PRN Administration NEEDED PER PROVIDER ORDERS Sodium Chloride 10 ml 11/24/23 01:00 11/29/23 08:50 Sodium Chloride Flush 0.9% 10 Ml Syringe IVP 10 ml 0100,0900,1700 MYCHAL Administration - Lab Result Fish Bone Diagrams: 11/28/23 09:25 11/28/23 09:25 - Additional Planning My Orders: My Active Orders 11/28/23 14:06 Ipratropium [Atrovent] 0.5 mg INH TID PRN 11/28/23 15:43 Miscellaenous Nursing Order [RC] QSHIFT 11/28/23 15:44 Vital Signs- Do Not Awaken For [RC] HS Amox/Clav 875/125 [Augmentin 875/125 Tab] 1 tab PO BID 11/28/23 21:00 Montelukast [Singulair] 10 mg PO QPM 11/29/23 10:00 Vitamin [Trinatal Rx 1] 1 tab PO DAILYWM Subjective - Subjective Patient Reports: Shortness of Breath, Other (Cough is better) Objective Vital Signs: Vital Signs - 24 hr 11/28/23 11/28/23 11/28/23 15:53 19:50 19:52 Temperature 37.1 C Heart Rate 78 Heart Rate [ 85 Brachial] Respiratory 16 20 Rate Blood Pressure 135/68 H [Right Brachial artery] O2 Saturation 92 If not protocol 2 2 2 : Oxygen Flow, liters/minute 11/28/23 11/29/23 11/29/23 21:00 00:00 07:35 Temperature 37.0 C 37.1 C 37.2 C Heart Rate Heart Rate [ 79 83 82 Brachial] Respiratory 18 20 18 Rate Blood Pressure 136/60 H 143/71 H 135/79 H [Right Brachial artery] O2 Saturation 93 94 92 If not protocol 2 2 2 : Oxygen Flow, liters/minute 11/29/23 07:41 Temperature Heart Rate 80 Heart Rate [ Brachial] Respiratory 20 Rate Blood Pressure [Right Brachial artery] O2 Saturation If not protocol 2 : Oxygen Flow, liters/minute Oxygen O2 Source Nasal cannula Oxygen Flow Rate 2 I&O (Last 24 Hrs): Intake and Output Totals x24h 11/27/23 11/28/23 11/29/23 23:59 23:59 23:59 Intake Total 2518.167 1870 360 Output Total 2280 2500 1150 Balance 171.426 -338 -149 General: Alert, Oriented x3, No acute distress HEENT: Mucous membr. moist/pink, Other (wearing O2 n.c.) Neck: Supple, No JVD Neuro: Alert, Non Focal Cardiovascular: Regular rate, No murmurs Respiratory: Breath sounds nml (R side), Wheezes (L base), Other (Poor air mvm L apex) Abdomen: Normal bowel sounds, Soft Extremities: No clubbing, No edema, No tenderness/swelling - Results Results: Laboratory Results WBC 12.0 x10^3/uL (4.8-10.8) H 11/28/23 09:25 RBC 4.52 10^6/uL (4.20-5.40) 11/28/23 09:25 Hgb 14.5 g/dL (12.0-16.0) 11/28/23 09:25 Hct 45.2 % (37.0-47.0) 11/28/23 09:25 MCV 100.0 fL (81.0-99.0) H 11/28/23 09:25 MCH 32.1 pg (27.0-31.0) H 11/28/23 09:25 MCHC 32.1 g/dL (32.0-36.0) 11/28/23 09:25 RDW 12.4 % (12.0-15.0) 11/28/23 09:25 Plt Count 272 10^3/uL (130-450) 11/28/23 09:25 MPV 9.6 fL (7.9-10.8) 11/28/23 09:25 Neut # (Auto) 10.3 10^3/uL (1.5-6.6) H 11/28/23 09:25 Lymph # (Auto) 0.9 10^3/uL (1.5-3.5) L 11/28/23 09:25 [place] # (Auto) 0.7 10^3/uL (0.0-1.0) 11/28/23 09:25 Eos # (Auto) 0.0 10^3/uL (0.0-0.7) 11/28/23 09:25 Baso # (Auto) 0.0 10^3/uL (0.0-0.1) 11/28/23 09:25 Absolute Nucleated RBC 0.00 x10^3/uL 11/28/23 09:25 Nucleated RBC % 0.0 /100WBC 11/28/23 09:25 VBG pH 7.295 (7.31-7.41) L 11/23/23 12:24 VBG pCO2 56.3 mmHg (41-51) H 11/23/23 12:24 VBG pO2 27.9 mmHg (25-47) 11/23/23 12:24 VBG HCO3 26.8 mmol/L (23-28) 11/23/23 12:24 VBG Total CO2 28.5 mmol/L (24-29) 11/23/23 12:24 VBG O2 Saturation 49.5 % (60-80) L 11/23/23 12:24 VBG Base Excess -0.9 mmol/L (-2 - +2) 11/23/23 12:24 Sodium 134 mmol/L (135-145) L 11/28/23 09:25 Potassium 3.6 mmol/L (3.5-4.5) 11/28/23 09:25 Chloride 96 mmol/L (101-111) L 11/28/23 09:25 Carbon Dioxide 31 mmol/L (21-32) 11/28/23 09:25 Anion Gap 7.0 (6-13) 11/28/23 09:25 BUN 13 mg/dL (6-20) 11/28/23 09:25 Creatinine 0.6 mg/dL (0.6-1.3) 11/28/23 09:25 Estimated GFR (MDRD) 99 (>89) 11/28/23 09:25 Glucose 150 mg/dL (74-104) H 11/28/23 09:25 Calcium 9.4 mg/dL (8.5-10.3) 11/28/23 09:25 Magnesium 1.6 mg/dL (1.7-2.3) L 11/28/23 09:25 Total Bilirubin 0.4 mg/dL (0.2-1.0) 11/23/23 12:24 AST 19 IU/L (10-42) 11/23/23 12:24 ALT 17 IU/L (10-60) 11/23/23 12:24 Alkaline Phosphatase 80 IU/L (42-121) 11/23/23 12:24 Total Protein 7.3 g/dL (6.4-8.9) 11/23/23 12:24 Albumin 4.4 g/dL (3.2-5.5) 11/23/23 12:24 Globulin 2.9 g/dL (2.1-4.2) 11/23/23 12:24 Albumin/Globulin Ratio 1.5 (1.0-2.2) 11/23/23 12:24 Vitamin B12 469 pg/mL (180-914) 11/28/23 09:25 Folate 6.2 ng/mL (5.90 - >24.8) 11/28/23 09:25 Sepsis Event Note (H) - Evaluation Current Stage of Sepsis: Ruled out
--- NOTE | 2023-11-29 16:29 | ADVANCE CARE PLANNING NOTE ---
Advance Care Planning - Planning Encounter Date: 11/29/23 Time: 16:00 Purpose: Patient wished to have a POLST form completed for the record, stating her wishes Parties in Attendance: I spoke to the patient and son was at bedside
[2023-11-29] MEDS: AZITHROMYCIN INJ 500 MG in SODIUM CHLORIDE 0.9% 250 ML IV SCH (19:36)
[2023-11-29] MEDS: MONTELUKAST 10 MG TABLET PO SCH (20:41)
[2023-11-29] MEDS: hydrOXYzine PAMOATE 25 MG CAPSULE PO PRN (23:34)
[2023-11-30] MEDS: LORazepam 0.5 MG TABLET PO PRN ×2 (06:04→15:07)
[2023-11-30] MEDS: DOCUSATE SODIUM 250 MG CAPSULE PO SCH (08:34)
[2023-11-30] MEDS: PRENATAL VITAMIN TABLET PO SCH (08:34)
[2023-11-30] MEDS: SACCHAROMYCES BOULARDII 250 MG CAPSULE PO SCH ×2 (08:34→16:40)
[2023-11-30] MEDS: ACETAMINOPHEN 500 MG TABLET PO SCH ×3 (08:34→23:51)
[2023-11-30] MEDS: predniSONE 20 MG TABLET PO SCH (08:34)
[2023-11-30] MEDS: AZITHROMYCIN INJ 500 MG in SODIUM CHLORIDE 0.9% 250 ML IV SCH (08:34)
[2023-11-30] MEDS: SODIUM CHLORIDE FLUSH 0.9% 10 ML SYRINGE IVP SCH ×3 (08:35→23:52)
[2023-11-30] MEDS: polyethylene glycoL 3350 17 GM PACKET PO SCH (08:35)
--- NOTE | 2023-11-30 09:30 | PROVIDER PROGRESS NOTE ---
Subjective - General Admit Date: 11/23/23 Procedure Date: 11/25/23 Post Op Days: 5 Objective - Patient Data Intake & Output: Intake and Output Totals x24h 11/28/23 11/29/23 11/30/23 23:59 23:59 23:59 Intake Total 1870 1657 360 Output Total 8150 7760 650 Balance -630 -593 -290 - Lab Results Lab Results: 11/28/23 09:25 11/28/23 09:25 - Current Medications Current Medications: Current Medications Generic Name Dose Route Start Last Admin Trade Name Freq PRN Reason Stop Dose Admin Acetaminophen 650 mg 11/23/23 21:33 11/29/23 05:53 Acetaminophen 325 Mg Tablet PO 650 mg Q4HR PRN Administration Pain 1 to 4, or Fever Acetaminophen 500 mg 11/24/23 08:00 11/30/23 08:34 Acetaminophen 500 Mg Tablet PO 500 mg Q8H MYCHAL Administration Docusate Sodium 250 - 500 mg 11/27/23 21:00 11/30/23 08:34 Docusate Sodium 250 Mg Capsule PO 250 mg DAILY MYCHAL Administration Hydroxyzine Pamoate 25 mg 11/23/23 21:25 11/29/23 23:34 Hydroxyzine Pamoate 25 Mg Capsule PO 25 mg Q8H PRN Administration anxiety or sleep Azithromycin 500 mg/ Sodium 250 mls @ 250 mls/hr 11/29/23 18:33 11/30/23 0 8:34 Chloride IV 250 mls/hr DAILY MYCHAL Administration Ipratropium [place] 0.5 mg 11/28/23 14:06 11/29/23 07:37 Ipratropium 0.2 Mg/Ml Neb INH 0.5 mg TID PRN Administration Wheezing Ketorolac Tromethamine 30 mg 11/26/23 12:49 11/26/23 13:09 Ketorolac 30 Mg/Ml Vial IVP 12/01/23 12:48 30 mg Q6HR PRN Administration Severe Pain (Level 7-10) Levalbuterol HCl 1.25 mg 11/26/23 09:06 11/29/23 14:41 Levalbuterol 1.25 Mg/3 Ml Neb INH 1.25 mg Q4H PRN Administration Shortness of Air/Wheezing Lorazepam 0.5 mg 11/23/23 21:37 11/30/23 06:04 Lorazepam 0.5 Mg Tablet PO 0.5 mg Q8HR PRN Administration Anxiety Montelukast Sodium 10 mg 11/28/23 21:00 11/29/23 20:41 Montelukast 10 Mg Tablet PO 10 mg QPM MYCHAL Administration Polyethylene Glycol 17 gm 11/26/23 17:00 11/30/23 08:35 Polyethylene Glycol 3350 17 Gm Packet PO 17 gm DAILY MYCHAL Administration Prednisone 40 mg 11/28/23 09:00 11/30/23 08:34 Prednisone 20 Mg Tablet PO 40 mg DAILY MYCHAL Administration Multivit/Folic Acid/Iron 1 tab 11/29/23 10:00 11/30/23 08:34 Vitamin Tablet PO 1 tab DAILYWM MYCHAL Administration Prochlorperazine Edisylate 10 mg 11/23/23 21:33 11/28/23 22:01 Prochlorperazine 10 Mg/2 Ml Vial IVP 10 mg Q6HR PRN Administration Nausea / Vomiting Saccharomyces Boulardii 250 mg 11/29/23 08:00 11/30/23 08:34 Saccharomyces Boulardii 250 Mg Capsule PO 250 mg BIDWM MYCHAL Administration Sodium Chloride 10 ml 11/23/23 21:33 11/26/23 13:08 Sodium Chloride Flush 0.9% 10 Ml Syringe IVP 10 ml PRN PRN Administration NEEDED PER PROVIDER ORDERS Sodium Chloride 10 ml 11/24/23 01:00 11/30/23 08:35 Sodium Chloride Flush 0.9% 10 Ml Syringe IVP 10 ml 0100,0900,1700 MYCHAL Administration Impression/Plan - Problem List Problem List: General Surgery Progress Note Yumiko underwent placement of a 20F left chest tube 11/23/23 for spontaneous left pneumothorax. Her 11/27/23 CXR revealed a tiny apical pneumothorax which increased in size on the CXR obtained on 11/28/22. The pleuravac was returned to -20 cm wall suction. Her CXR yesterday revealed a small, residual left apical pneumothorax and this morning, the wall suction was stopped with the plan to obtain a CXR later today. She remains on 40 mg of prednisone daily to manage her COPD with acute exacerbation. On my exam today, there is no evidence of an air leak in the pleuravac chamber with deep breath or cough off wall suction to the pleuravac. Assessment: Spontaneous left pneumothorax managed with placement of a left chest tube. No evidence of an air leak in pleuravac at this time off wall suction. Plan: CXR later today. If the left apical pneumothorax is absent or not increased from yesterday's CXR, continued off-wall suction pleuravac drainage is recommended at least until tomorrow to permit adhesion of the visceral to the parietal pleura. CT removal may be considered at that time if the am CXR looks good. If she were to develop a recurrent air-leak, the pleuravac will be r econnected to wall suction. Definitive management of persistent COPD air leak is pleurodesis usually via VATS at a facility with Thoracic Surgery availability. Aníbal Oneill MD, [facility] General Surgery Service
--- NOTE | 2023-11-30 12:35 | XRAY Report ---
PROCEDURE: Chest 1V INDICATIONS: Pneumothorax with tube thoracostomy - pt waterseal TECHNIQUE: One view of the chest was acquired. COMPARISON: 11/29/2023. FINDINGS: Surgical changes and devices: Left-sided chest tube position is unchanged. Lungs and pleura: Small left apical pneumothorax is again seen slightly decreased in size unchanged compared to previous day. Mediastinum: Mediastinal contours appear normal. Heart size is normal. Bones and chest wall: No suspicious bony lesions. Overlying soft tissues appear unremarkable. IMPRESSION: Patient's known left apical pneumothorax is unchanged or minimally decreased in size comp ared to previous day. Reviewed by: Ector Mtz MD on 11/30/2023 12:34 PM PST Approved by: Ector Mtz MD on 11/30/2023 12:34 PM PST Station ID: [id number]
--- NOTE | 2023-11-30 15:58 | PROVIDER PROGRESS NOTE ---
Subjective - General Admit Date: 11/23/23 Procedure Date: 11/25/23 Post Op Days: 5 Objective - Patient Data Vital Signs: Vital Signs x48h Temp Pulse Resp BP BP Pulse Ox O2 Flow Rate 11/30/23 15:46 99.1 F 89 16 120/65 93 2 11/30/23 13:00 98.2 F 94 18 120/67 94 2 11/30/23 09:00 99.3 F 100 18 138/76 H 92 2 Intake & Output: Intake and Output Totals x24h 11/28/23 11/29/23 11/30/23 23:59 23:59 23:59 Intake Total 1870 1657 840 Output Total 2500 2250 1050 Balance -352 -593 -210 - Lab Results Lab Results: 11/28/23 09:25 11/28/23 09:25 - Current Medications Current Medications: Current Medications Generic Name Dose Route Start Last Admin Trade Name Freq PRN Reason Stop Dose Admin Acetaminophen 650 mg 11/23/23 21:33 11/29/23 05:53 Acetaminophen 325 Mg Tablet PO 650 mg Q4HR PRN Administration Pain 1 to 4, or Fever Acetaminophen 500 mg 11/24/23 08:00 11/30/23 08:34 Acetaminophen 500 Mg Tablet PO 500 mg Q8H MYCHAL Administration Docusate Sodium 250 - 500 mg 11/27/23 21:00 11/30/23 08:34 Docusate Sodium 250 Mg Capsule PO 250 mg DAILY MYCHAL Administration Hydroxyzine Pamoate 25 mg 11/23/23 21:25 11/29/23 23:34 Hydroxyzine Pamoate 25 Mg Capsule PO 25 mg Q8H PRN Administration anxiety or sleep Azithromycin 500 mg/ Sodium 250 mls @ 250 mls/hr 11/29/23 18:33 11/30/23 08:34 Chloride IV 250 mls/hr DAILY MYCHAL Administration Ipratropium [place] 0.5 mg 11/28/23 14:06 11/29/23 07:37 Ipratropium 0.2 Mg/Ml Neb INH 0.5 mg TID PRN Administration Wheezing Ketorolac Tromethamine 30 mg 11/26/23 12:49 11/26/23 13:09 Ketorolac 30 Mg/Ml Vial IVP 12/01/23 12:48 30 mg Q6HR PRN Administration Severe Pain (Level 7-10) Levalbuterol HCl 1.25 mg 11/26/23 09:06 11/29/23 14:41 Levalbuterol 1.25 Mg/3 Ml Neb INH 1.25 mg Q4H PRN Administration Shortness of Air/Wheezing Lorazepam 0.5 mg 11/23/23 21:37 11/30/23 15:07 Lorazepam 0.5 Mg Tablet PO 0.5 mg Q8HR PRN Administration Anxiety Montelukast Sodium 10 mg 11/28/23 21:00 11/29/23 20:41 Montelukast 10 Mg Tablet PO 10 mg QPM MYCHAL Administration Polyethylene Glycol 17 gm 11/26/23 17:00 11/30/23 08:35 Polyethylene Glycol 3350 17 Gm Packet PO 17 gm DAILY MYCHAL Administration Prednisone 40 mg 11/28/23 09:00 11/30/23 08:34 Prednisone 20 Mg Tablet PO 40 mg DAILY MYCHAL Administration Multivit/Folic Acid/Iron 1 tab 11/29/23 10:00 11/30/23 08:34 Vitamin Tablet PO 1 tab DAILYWM MYCHAL Administration Prochlorperazine Edisylate 10 mg 11/23/23 21:33 11/28/23 22:01 Prochlorperazine 10 Mg/2 Ml Vial IVP 10 mg Q6HR PRN Administration Nausea / Vomiting Saccharomyces Boulardii 250 mg 11/29/23 08:00 11/30/23 08:34 Saccharomyces Boulardii 250 Mg Capsule PO 250 mg BIDWM MYCHAL Administration Sodium Chloride 10 ml 11/23/23 21:33 11/26/23 13:08 Sodium Chloride Flush 0.9% 10 Ml Syringe IVP 10 ml PRN PRN Administration NEEDED PER PROVIDER ORDERS Sodium Chloride 10 ml 11/24/23 01:00 11/30/23 08:35 Sodium Chloride Flush 0.9% 10 Ml Syringe IVP 10 ml 0100,0900,1700 MYCHAL Administration Impression/Plan - Problem List Problem List: General Surgery Progress Note Today's CXR shows no increase in the size of the left pneumothorax. Pleuravac demonstrates no air leak. If tomorrow's CXR demonstrates continued stability in the size of the apical pneumothorax and she has no clinical evidence of an air leak, CT removal will be considered. Aníbal Oneill MD, FACS General Surgery Service
--- NOTE | 2023-11-30 18:16 | PROVIDER PROGRESS NOTE ---
Assessment/Plan - Problem List (1) Spontaneous pneumothorax Assessment/Plan: Complete pneumothorax seen on 11/25 CXR so she went to the OR for chest tube placement. Since 11/26 she felt like she is breathing up and down better but has a persistent cough and gets intermittently suddenly breathless and gets i ntermittent L chest pain. She doesn't want Morphine or another opiates for pain. When the chest x-ray showed worsening of the left apical pneumothorax, increased in size to 2.5 cm today, from 7 mm, the chest tube was placed back on suction, she has felt better I spoke to the surgeon today, Dr. Tilley, he will keep following the size of the pneumothorax daily and hopes to pull out the chest tube soon Plan: Toradol prn and Tylenol prn Chest tube management as per Gen Surg. He wants daily CXRs. (2) Haemophilus infection Assessment/Plan: She still has secretions coughing up yellow-green sputum. I therefore changed her Keflex to Augmentin several days ago I also offered to give her guaifenesin, but she turned it down because it "makes her shaky" Each tablet of p.o. Augmentin gives her nausea and abdominal pain and she has requested to take it with food which was ordered, discussed with [employer]. A spt sample was sent for culture and is growing Haemophilus parainfluenza, and expected sens are listed Plan: Today she told me that Amoxicillin gives her the most abdominal pain of any antibiotic that she ever takes, and since Augmentin is related, I will stop the Augmentin I will give her 3 days of IV Zithromax 500 mg daily. Discussed with pharmacy (3) COPD exacerbation Impression: She recently quit smoking on her own (about a month ago). She has no PCP. At home she was only on albuterol as needed. We had her on Duoneb scheduled>> now prn. And we started her on 50 mg of po Prednisone daily>> down to 40 mg since yesterday. Since being on steroids, she describes feeling sudden anxiety and tremulousness, so the Pred dose was decreased When I offered to give her guaifenesin she turned it down because it "makes her shaky" Her exam has less wheezing, better air mvm, except poor air mvm over the pneumothorax (L apex) Plan: Continue Duonebs, Prednisone I taught her pursed lip breathing and she is using it We discussed she needs to establish with a PCP and have also recommended Pulmonary Rehab after DCh (4) Acute respiratory failure with hypoxia Impression: She was requiring 4 to 5 L nasal cannula and that is down to 1-2L O2 n.c. Her CXR on 11/28 today showed poss CHF, so her iv fluids since adm were stopped then. I asked RT to give her humidified nasal cannula supplemental O2, but sh\\e did not like "the smell of that tubing" Plan: Cont suppl O2, with target O2 sat >88% in a COPDer If she is Dch to home, she will need an oximetry walk test on day of Dch (5) Celiac disease - K90.0 Impression: This was not in her chart, was learned by [employer]ish [employer]ender and then passed on to me Plan: Diet was changed to a celiac diet (6) Anxiety Impression: She has been apologizing that she is so anxious ever since admission. She then shared with me that she has a long history of anxiety and used to be on Paxil, took it for 9 years, had terrible panic attacks as she tapered herself off over 12 months. She has been on no anxiolytic for 12 years Plan: I offered her to consider me starting her on meds like SNRI Venlafaxine or SSRI Lexapro and she and her son at bedside will talk about - Current Meds Current Meds: Current Medications Generic Name Dose Route Start Last Admin Trade Name Freq PRN Reason Stop Dose Admin Acetaminophen 650 mg 11/23/23 21:33 11/29/23 05:53 Acetaminophen 325 Mg Tablet PO 650 mg Q4HR PRN Administration Pain 1 to 4, or Fever Acetaminophen 500 mg 11/24/23 08:00 11/30/23 16:40 Acetaminophen 500 Mg Tablet PO 500 mg Q8H MYCHAL Administration Docusate Sodium 250 - 500 mg 11/27/23 21:00 11/30/23 08:34 Docusate Sodium 250 Mg Capsule PO 250 mg DAILY MYCHAL Administration Hydroxyzine Pamoate 25 mg 11/23/23 21:25 11/29/23 23:34 Hydroxyzine Pamoate 25 Mg Capsule PO 25 mg Q8H PRN Administration anxiety or sleep Azithromycin 500 mg/ Sodium 250 mls @ 250 mls/hr 11/29/23 18:33 11/30/23 16:42 Chloride IV Infused DAILY MYCHAL Infusion Ipratropium [place] 0.5 mg 11/28/23 14:06 11/29/23 07:37 Ipratropium 0.2 Mg/Ml Neb INH 0.5 mg TID PRN Administration Wheezing Ketorolac Tromethamine 30 mg 11/26/23 12:49 11/26/23 13:09 Ketorolac 30 Mg/Ml Vial IVP 12/01/23 12:48 30 mg Q6HR PRN Administration Severe Pain (Level 7-10) Levalbuterol HCl 1.25 mg 11/26/23 09:06 11/29/23 14:41 Levalbuterol 1.25 Mg/3 Ml Neb INH 1.25 mg Q4H PRN Administration Shortness of Air/Wheezing Lorazepam 0.5 mg 11/23/23 21:37 11/30/23 15:07 Lorazepam 0.5 Mg Tablet PO 0.5 mg Q8HR PRN Administration Anxiety Montelukast Sodium 10 mg 11/28/23 21:00 11/29/23 20:41 Montelukast 10 Mg Tablet PO 10 mg QPM MYCHAL Administration Polyethylene Glycol 17 gm 11/26/23 17:00 11/30/23 08:35 Polyethylene Glycol 3350 17 Gm Packet PO 17 gm DAILY MYCHAL Administration Prednisone 40 mg 11/28/23 09:00 11/30/23 08:34 Prednisone 20 Mg Tablet PO 40 mg DAILY MYCHAL Administration Multivit/Folic Acid/Iron 1 tab 11/29/23 10:00 11/30/23 08:34 Vitamin Tablet PO 1 tab DAILYWM MYCHAL Administration Prochlorperazine Edisylate 10 mg 11/23/23 21:33 11/28/23 22:01 Prochlorperazine 10 Mg/2 Ml Vial IVP 10 mg Q6HR PRN Administration Nausea / Vomiting Saccharomyces Boulardii 250 mg 11/29/23 08:00 11/30/23 16:40 Saccharomyces Boulardii 250 Mg Capsule PO 250 mg BIDWM MYCHAL Administration Sodium Chloride 10 ml 11/23/23 21:33 11/26/23 13:08 Sodium Chloride Flush 0.9% 10 Ml Syringe IVP 10 ml PRN PRN Administration NEEDED PER PROVIDER ORDERS Sodium Chloride 10 ml 11/24/23 01:00 11/30/23 16:41 Sodium Chloride Flush 0.9% 10 Ml Syringe IVP 10 ml 0100,0900,1700 [facility] Administration - Lab Result Fish Bone Diagrams: 11/28/23 09:25 11/28/23 09:25 - Additional Planning My Orders: My Active Orders 11/29/23 18:33 Azithromycin Inj [Zithromax Inj] 500 mg Sodium Chloride 0.9% [Normal Saline 0.9%] 250 ml IV DAILY Subjective - Subjective Patient Reports: Cough (Coughing is less, sputum is yellow-green and also less), Pain (Still has slight pain under left clavicle), Shortness of Breath Objective Vital Signs: Vital Signs - 24 hr 11/29/23 11/29/23 11/30/23 20:10 23:27 09:00 Temperature 37.2 C 37.1 C 37.4 C Heart Rate [ 85 87 100 Brachial] Respiratory 16 18 18 Rate Blood Pressure 138/76 H [Left Brachial artery] Blood Pressure 122/67 133/70 H [Right Brachial artery] O2 Saturation 94 92 92 If not protocol 2 2 2 : Oxygen Flow, liters/minute 11/30/23 11/30/23 13:00 15:46 Temperature 36.8 C 37.3 C Heart Rate [ 94 89 Brachial] Respiratory 18 16 Rate Blood Pressure [Left Brachial artery] Blood Pressure 120/67 120/65 [Right Brachial artery] O2 Saturation 94 93 If not protocol 2 2 : Oxygen Flow, liters/minute Oxygen O2 Source Nasal cannula Oxygen Flow Rate 2 I&O (Last 24 Hrs): Intake and Output Totals x24h 11/28/23 11/29/23 11/30/23 23:59 23:59 23:59 Intake Total 1870 1657 1290 Output Total 2500 2250 1050 Balance -630 -593 240 General: Alert, Oriented x3 HEENT: EOMI, Mucous membr. moist/pink Neck: Supple, No JVD Neuro: Alert, Non Focal Cardiovascular: Regular rate (Distant heart sounds due to COPD) Respiratory: Wheezes (Left posterior lung field wheezing, diminished breath sounds left anterior apex) Abdomen: Soft, No tenderness Extremities: No clubbing, No edema, No tenderness/swelling - Results Results: Laboratory Results WBC 12.0 x10^3/uL (4.8-10.8) H 11/28/23 09:25 RBC 4.52 10^6/uL (4.20-5.40) 11/28/23 09:25 Hgb 14.5 g/dL (12.0-16.0) 11/28/23 09:25 Hct 45.2 % (37.0-47.0) 11/28/23 09:25 MCV 100.0 fL (81.0-99.0) H 11/28/23 09:25 MCH 32.1 pg (27.0-31.0) H 11/28/23 09:25 MCHC 32.1 g/dL (32.0-36.0) 11/28/23 09:25 RDW 12.4 % (12.0-15.0) 11/28/23 09: Plt Count 272 10^3/uL (130-450) 11/28/23 09:25 MPV 9.6 fL (7.9-10.8) 11/28/23 09:25 Neut # (Auto) 10.3 10^3/uL (1.5-6.6) H 11/28/23 09:25 Lymph # (Auto) 0.9 10^3/uL (1.5-3.5) L 11/28/23 09:25 [place] # (Auto) 0.7 10^3/uL (0.0-1.0) 11/28/23 09:25 Eos # (Auto) 0.0 10^3/uL (0.0-0.7) 11/28/23 09:25 Baso # (Auto) 0.0 10^3/uL (0.0-0.1) 11/28/23 09: Absolute Nucleated RBC 0.00 x10^3/uL 11/28/23 09: Nucleated RBC % 0.0 /100WBC 11/28/23 09:25 VBG pH 7.295 (7.31-7.41) L 11/23/23 12:24 VBG pCO2 56.3 mmHg (41-51) H 11/23/23 12:24 VBG pO2 27.9 mmHg (25-47) 11/23/23 12:24 VBG HCO3 26.8 mmol/L (23-28) 11/23/23 12:24 VBG Total CO2 28.5 mmol/L (24-29) 11/23/23 12:24 VBG O2 Saturation 49.5 % (60-80) L 11/23/23 12:24 VBG Base Excess -0.9 mmol/L (-2 - +2) 11/23/23 12:24 Sodium 134 mmol/L (135-145) L 11/28/23 09:25 Potassium 3.6 mmol/L (3.5-4.5) 11/28/23 09:25 Chloride 96 mmol/L (101-111) L 11/28/23 09:25 Carbon Dioxide 31 mmol/L (21-32) 11/28/23 09:25 Anion Gap 7.0 (6-13) 11/28/23 09:25 BUN 13 mg/dL (6-20) 11/28/23 09:25 Creatinine 0.6 mg/dL (0.6-1.3) 11/28/23 09:25 Estimated GFR (MDRD) 99 (>89) 11/28/23 09:25 Glucose 150 mg/dL (74-104) H 11/28/23 09:25 Calcium 9.4 mg/dL (8.5-10.3) 11/28/23 09:25 Magnesium 1.6 mg/dL (1.7-2.3) L 11/28/23 09:25 Total Bilirubin 0.4 mg/dL (0.2-1.0) 11/23/23 12:24 AST 19 IU/L (10-42) 11/23/23 12:24 ALT 17 IU/L (10-60) 11/23/23 12:24 Alkaline Phosphatase 80 IU/L (42-121) 11/23/23 12:24 Total Protein 7.3 g/dL (6.4-8.9) 11/23/23 12:24 Albumin 4.4 g/dL (3.2-5.5) 11/23/23 12:24 Globulin 2.9 g/dL (2.1-4.2) 11/23/23 12:24 Albumin/Globulin Ratio 1.5 (1.0-2.2) 11/23/23 12:24 Vitamin B12 469 pg/mL (180-914) 11/28/23 09:25 Folate 6.2 ng/mL (5.90 - >24.8) 11/28/23 09:25 Sepsis Event Note (H) - Evaluation Current Stage of Sepsis: Ruled out
[2023-11-30] MEDS: hydrOXYzine PAMOATE 25 MG CAPSULE PO PRN (21:04)
[2023-11-30] MEDS: MONTELUKAST 10 MG TABLET PO SCH (21:04)
[2023-12-01] MEDS: ACETAMINOPHEN 325 MG TABLET PO PRN ×2 (06:28→19:39)
[2023-12-01] MEDS: ACETAMINOPHEN 500 MG TABLET PO SCH ×2 (08:12→15:18)
[2023-12-01] MEDS: LORazepam 0.5 MG TABLET PO PRN (08:13)
[2023-12-01] MEDS: SACCHAROMYCES BOULARDII 250 MG CAPSULE PO SCH ×2 (08:13→17:28)
[2023-12-01] MEDS: DOCUSATE SODIUM 250 MG CAPSULE PO SCH (08:13)
[2023-12-01] MEDS: predniSONE 20 MG TABLET PO SCH (08:13)
[2023-12-01] MEDS: PRENATAL VITAMIN TABLET PO SCH (08:13)
[2023-12-01] MEDS: polyethylene glycoL 3350 17 GM PACKET PO SCH (08:14)
[2023-12-01] MEDS: AZITHROMYCIN INJ 500 MG in SODIUM CHLORIDE 0.9% 250 ML IV SCH (08:15)
[2023-12-01] MEDS: SODIUM CHLORIDE FLUSH 0.9% 10 ML SYRINGE IVP SCH ×2 (08:15→17:28)
[2023-12-01] MEDS ORDERED: LIDOCAINE 1%-EPI 1:100000 10 ML MDV SUBQ ONE (08:17)
--- NOTE | 2023-12-01 08:34 | PROVIDER PROGRESS NOTE ---
Progress Note General Surgery Progress Note S: Comfortable; Eating breakfast; Still with cough O: VSS, afeb; No fluctuation of the water column with cough or inspiration. No bubbling. CXR (AM) - near complete resolution of left spontaneous pneumothorax. A: Resolved left spontaneous pneumothorax. Plan: 1) Remove CT today (Today is day 8) - done without complication. She will need removal of the left chest tube insertion site suture in 7-10 days either by her PCP or through our surgery clinic. 2) Avoid cigarettes; Avoid people with active respiratory illness 3) Return to ED if she develops respiratory distress because her COPD/lung bleb formation places her at risk for recurrence of spontaneous pneumothorax. The General Surgery Service will sign off of case today. Please do not hesitate to contact me if you have further questions or concerns or if you wish to have me continue to follow this patient with you. Aníbal Oneill MD, FACS General Surgery Service [phone]
[2023-12-01] MEDS ORDERED: LIDOCAINE 1%-EPI 1:100000 20 ML MDV SUBQ ONE (09:00)
[2023-12-01] MEDS ORDERED: ZINC OXIDE 20% OINT 30 GM TUBE TOP PRN (09:37)
--- NOTE | 2023-12-01 13:29 | XRAY Report ---
PROCEDURE: Chest 1V INDICATIONS: FU left pneumothorax TECHNIQUE: One view of the chest was acquired. COMPARISON: Chest radiographs 11/30/2023, 11/29/2023 FINDINGS: Surgical changes and devices: Left-sided chest tube is seen in stable position. Lungs and pleura: Further decrease in size of the left apical pneumothorax when compared to the exam from the day prior with trace residual. Lungs otherwise appear unchanged with chronic appearing bila teral reticulations and basilar atelectasis. Mediastinum: Mediastinal contours appear normal. Heart size is normal. Bones and chest wall: No suspicious bony lesions. Overlying soft tissues appear unremarkable. IMPRESSION: Stable left chest tube. Trace left apical pneumothorax has mildly decreased in size when compared to the prior exam. Reviewed by: Petros Coyle MD on 12/01/2023 1:28 PM PST Approved by: Petros Coyle MD on 12/01/2023 1:28 PM PST Station ID: [id number]
--- NOTE | 2023-12-01 17:18 | PROVIDER PROGRESS NOTE ---
Assessment/Plan - Problem List (1) Spontaneous pneumothorax Assessment/Plan: Complete pneumothorax seen on 11/25 CXR so she went to the OR for chest tube placement. She intermittently gets suddenly breathless and gets intermittent L chest pain. She doesn't want Morphine or another opiates for pain. Today's chest x-ray showed complete resolution of the PTX and Dr Oneill removed the chest tube. Plan: Toradol prn and Tylenol prn Cont to monitor at least all day today for any rebound PTX (2) Haemophilus infection Assessment/Plan: She had copious secretions, was coughing up green sputum. I therefore changed her Keflex to Augmentin several days ago I also offered to give her guaifenesin, but she turned it down because it "makes her shaky" But the p.o. Augmentin gave her nausea and abdominal pain and she has requested to take it with food which was ordered. Yesterday she told me that Amoxicillin gives her the most abdominal pain of any antibiotic that she ever takes, and since Augmentin is related, I stopped the Augmentin, and started iv Zithromax. A spt sample was sent for culture and is growing Haemophilus parainfluenza, and expected sens are listed Plan: I will give her 3 days of IV Zithromax 500 mg daily, today is Day 2. (3) COPD exacerbation Impression: She recently quit smoking on her own (about a month ago). She has no PCP. At home she was only on albuterol as needed. We had her on Duoneb scheduled>> now prn. And we started her on 50 mg of po Prednisone daily. Since being on steroids, she describes feeling sudden anxiety and tremulousness, so the Pred dose was decreased down to 40 mg. When I offered to give her guaifenesin she turned it down because it "makes her shaky" Her exam has less wheezing, minimally better air mvm; she still sounds "tight". Plan: Continue Duonebs or Xopenex prn, cont Prednisone and titrate down again tomorrow I taught her pursed lip breathing and she is using it I advised her to establish with a PCP and have also recommended Pulmonary Rehab after DCh (4) Acute respiratory failure with hypoxia Impression: She was requiring 4 to 5 L nasal cannula and that is down to 1-2L O2 n.c. Her CXR on 11/28 today showed poss CHF, so her iv fluids since adm were stopped then. I asked RT to give her humidified nasal cannula supplemental O2, but sh\\e did not like "the smell of that tubing" Plan: Cont suppl O2, with target O2 sat >88% in a COPDer If she is Dch to home, she will need an oximetry walk test on day of Dch (5) Celiac disease - K90.0 Impression: This was not in her chart, was learned by Food Scientist and then passed on to me Plan: Diet was changed to a celiac diet (6) Anxiety Impression: She shared with me that she has a long history of anxiety and used to be on Paxil, took it for 9 years, had terrible panic attacks as she tapered herself off over 12 months. She has been on no anxiolytic for 10-12 years and wants to retry Plan: Today I offered her to start her on Remeron qpm, which has least GI side effects, and may improve her appetite also. She is agreeable to start it here. Son at bedside also agreed that we try it. - Current Meds Current Meds: Current Medications Generic Name Dose Route Start Last Admin Trade Name Freq PRN Reason Stop Dose Admin Acetaminophen 650 mg 11/23/23 21:33 12/01/23 06:28 Acetaminophen 325 Mg Tablet PO 650 mg Q4HR PRN Administration Pain 1 to 4, or Fever Acetaminophen 500 mg 11/24/23 08:00 12/01/23 15:18 Acetaminophen 500 Mg Tablet PO 500 mg Q8H MYCHAL Administration Docusate Sodium 250 - 500 mg 11/27/23 21:00 12/01/23 08:13 Docusate Sodium 250 Mg Capsule PO 250 mg DAILY MYCHAL Administration Hydroxyzine Pamoate 25 mg 11/23/23 21:25 11/30/23 21:04 Hydroxyzine Pamoate 25 Mg Capsule PO 25 mg Q8H PRN Administration anxiety or sleep Azithromycin 500 mg/ Sodium 250 mls @ 250 mls/hr 11/29/23 18:33 12/01/23 09:26 Chloride IV Infused DAILY MYCHAL Infusion Ipratropium [place] 0.5 mg 11/28/23 14:06 11/29/23 07:37 Ipratropium 0.2 Mg/Ml Neb INH 0.5 mg TID PRN Administration Wheezing Levalbuterol HCl 1.25 mg 11/26/23 09:06 11/29/23 14:41 Levalbuterol 1.25 Mg/3 Ml Neb INH 1.25 mg Q4H PRN Administration Shortness of Air/Wheezing Lorazepam 0.5 mg 11/23/23 21:37 12/01/23 08:13 Lorazepam 0.5 Mg Tablet PO 0.5 mg Q8HR PRN Administration Anxiety Montelukast Sodium 10 mg 11/28/23 21:00 11/30/23 21:04 Montelukast 10 Mg Tablet PO 10 mg QPM MYCHAL Administration Polyethylene Glycol 17 gm 11/26/23 17:00 12/01/23 08:14 Polyethylene Glycol 3350 17 Gm Packet PO Not Given DAILY MYCHAL Prednisone 40 mg 11/28/23 09:00 12/01/23 08:13 Prednisone 20 Mg Tablet PO 40 mg DAILY MYCHAL Administration Multivit/Folic Acid/Iron 1 tab 11/29/23 10:00 12/01/23 08:13 Vitamin Tablet PO 1 tab DAILYWM MYCHAL Administration Prochlorperazine Edisylate 10 mg 11/23/23 21:33 11/28/23 22:01 Prochlorperazine 10 Mg/2 Ml Vial IVP 10 mg Q6HR PRN Administration Nausea / Vomiting Saccharomyces Boulardii 250 mg 11/29/23 08:00 12/01/23 08:13 Saccharomyces Boulardii 250 Mg Capsule PO 250 mg BIDWM MYCHAL Administration Sodium Chloride 10 ml 11/23/23 21:33 11/26/23 13:08 Sodium Chloride Flush 0.9% 10 Ml Syringe IVP 10 ml PRN PRN Administration NEEDED PER PROVIDER ORDERS Sodium Chloride 10 ml 11/24/23 01:00 12/01/23 08:15 Sodium Chloride Flush 0.9% 10 Ml Syringe IVP 10 ml 0100,0900,1700 [facility] Administration - Lab Result Fish Bone Diagrams: 11/28/23 09:25 11/28/23 09:25 - Additional Planning My Orders: My Active Orders 12/01/23 09:37 Zinc Oxide 20% Oint [Zinc Oxide] 1 applic TOP PRN PRN 12/01/23 21:00 Mirtazapine [Remeron] 15 mg PO QPM Subjective - Subjective Patient Reports: Feeling Better, Cough (less volume but still yellow-green) Objective Vital Signs: Vital Signs - 24 hr 11/30/23 11/30/23 11/30/23 19:12 19:15 23:47 Temperature 37.2 C 37.3 C Heart Rate [ 77 74 Brachial] Respiratory 20 16 Rate Blood Pressure 129/69 134/71 H [Left Brachial artery] Blood Pressure [Right Brachial artery] O2 Saturation 92 95 If not protocol 2 2 2 : Oxygen Flow, liters/minute 12/01/23 12/01/23 12/01/23 03:53 08:43 09:54 Temperature 37.2 C 37.4 C Heart Rate [ 72 102 H Brachial] Respiratory 18 20 Rate Blood Pressure 130/67 127/71 [Left Brachial artery] Blood Pressure [Right Brachial artery] O2 Saturation 93 94 If not protocol 2 2 2 : Oxygen Flow, liters/minute 12/01/23 12/01/23 13:29 15:57 Temperature 37.4 C 37.2 C Heart Rate [ 107 H 81 Brachial] Respiratory 18 20 Rate Blood Pressure 129/69 [Left Brachial artery] Blood Pressure 127/64 [Right Brachial artery] O2 Saturation 92 94 If not protocol 2 2 : Oxygen Flow, liters/minute Oxygen O2 Source Nasal cannula Oxygen Flow Rate 2 I&O (Last 24 Hrs): Intake and Output Totals x24h 11/29/23 11/30/23 12/01/23 23:59 23:59 23:59 Intake Total 1657 1590 370 Output Total 2250 1550 1250 Balance -593 40 -880 General: Alert, Oriented x3 HEENT: EOMI, Mucous membr. moist/pink Neck: Supple, No JVD Neuro: Alert, Non Focal Cardiovascular: Regular rate, No murmurs Respiratory: Other (Poor air mvm, but no longer tight, no wheezing) Abdomen: Soft, No tenderness Extremities: No clubbing, No edema, No tenderness/swelling - Results Results: Laboratory Results WBC 12.0 x10^3/uL (4.8-10.8) H 11/28/23 09:25 RBC 4.52 10^6/uL (4.20-5.40) 11/28/23 09:25 Hgb 14.5 g/dL (12.0-16.0) 11/28/23 09:25 Hct 45.2 % (37.0-47.0) 11/28/23 09:25 MCV 100.0 fL (81.0-99.0) H 11/28/23 09:25 MCH 32.1 pg (27.0-31.0) H 11/28/23 09:25 MCHC 32.1 g/dL (32.0-36.0) 11/28/23 09:25 RDW 12.4 % (12.0-15.0) 11/28/23 09:25 Plt Count 272 10^3/uL (130-450) 11/28/23 09:25 MPV 9.6 fL (7.9-10.8) 11/28/23 09:25 Neut # (Auto) 10.3 10^3/uL (1.5-6.6) H 11/28/23 09:25 Lymph # (Auto) 0.9 10^3/uL (1.5-3.5) L 11/28/23 09:25 [place] # (Auto) 0.7 10^3/uL (0.0-1.0) 11/28/23 09:25 Eos # (Auto) 0.0 10^3/uL (0.0-0.7) 11/28/23 09:25 Baso # (Auto) 0.0 10^3/uL (0.0-0.1) 11/28/23 09:25 Absolute Nucleated RBC 0.00 x10^3/uL 11/28/23 09:25 Nucleated RBC % 0.0 /100WBC 11/28/23 09:25 VBG pH 7.295 (7.31-7.41) L 11/23/23 12:24 VBG pCO2 56.3 mmHg (41-51) H 11/23/23 12:24 VBG pO2 27.9 mmHg (25-47) 11/23/23 12:24 VBG HCO3 26.8 mmol/L (23-28) 11/23/23 12:24 VBG Total CO2 28.5 mmol/L (24-29) 11/23/23 12:24 VBG O2 Saturation 49.5 % (60-80) L 11/23/23 12:24 VBG Base Excess -0.9 mmol/L (-2 - +2) 01/19/24 12:24 Sodium 134 mmol/L (135-145) L 11/28/23 09:25 Potassium 3.6 mmol/L (3.5-4.5) 11/28/23 09:25 Chloride 96 mmol/L (101-111) L 11/28/23 09:25 Carbon Dioxide 31 mmol/L (21-32) 11/28/23 09:25 Anion Gap 7.0 (6-13) 11/28/23 09:25 BUN 13 mg/dL (6-20) 11/28/23 09:25 Creatinine 0.6 mg/dL (0.6-1.3) 11/28/23 09:25 Estimated GFR (MDRD) 99 (>89) 11/28/23 09:25 Glucose 150 mg/dL (74-104) H 11/28/23 09:25 Calcium 9.4 mg/dL (8.5-10.3) 11/28/23 09:25 Magnesium 1.6 mg/dL (1.7-2.3) L 11/28/23 09:25 Total Bilirubin 0.4 mg/dL (0.2-1.0) 11/23/23 12:24 AST 19 IU/L (10-42) 11/23/23 12:24 ALT 17 IU/L (10-60) 11/23/23 12:24 Alkaline Phosphatase 80 IU/L (42-121) 11/23/23 12:24 Total Protein 7.3 g/dL (6.4-8.9) 11/23/23 12:24 Albumin 4.4 g/dL (3.2-5.5) 11/23/23 12:24 Globulin 2.9 g/dL (2.1-4.2) 11/23/23 12:24 Albumin/Globulin Ratio 1.5 (1.0-2.2) 11/23/23 12:24 Vitamin B12 469 pg/mL (180-914) 11/28/23 09:25 Folate 6.2 ng/mL (5.90 - >24.8) 11/28/23 09:25 Sepsis Event Note (H) - Evaluation Current Stage of Sepsis: Ruled out
[2023-12-01] MEDS: MONTELUKAST 10 MG TABLET PO SCH (20:39)
[2023-12-01] MEDS ORDERED: MIRTAZAPINE 15 MG TABLET PO SCH (21:00)
[2023-12-02] MEDS: ACETAMINOPHEN 500 MG TABLET PO SCH ×2 (03:50→08:07)
[2023-12-02] MEDS: hydrOXYzine PAMOATE 25 MG CAPSULE PO PRN ×2 (03:51→11:26)
[2023-12-02] MEDS: SODIUM CHLORIDE FLUSH 0.9% 10 ML SYRINGE IVP SCH ×2 (03:51→08:08)
[2023-12-02] MEDS: polyethylene glycoL 3350 17 GM PACKET PO SCH (08:06)
[2023-12-02] MEDS: DOCUSATE SODIUM 250 MG CAPSULE PO SCH (08:07)
[2023-12-02] MEDS: SACCHAROMYCES BOULARDII 250 MG CAPSULE PO SCH (08:07)
[2023-12-02] MEDS: PRENATAL VITAMIN TABLET PO SCH (08:07)
[2023-12-02] MEDS ORDERED: predniSONE 20 MG TABLET PO SCH (09:00)
--- NOTE | 2023-12-02 11:44 | Discharge Plan ---
Discharge Plan Problem Reviewed?: Yes Disposition: Home, Self Care Condition: Fair Prescriptions: predniSONE [Deltasone] 5 - 30 mg PO DAILY #46 tablet Mirtazapine [Remeron] 15 mg PO QPM #30 tab Montelukast [Singulair] 10 mg PO QPM #30 tab hydrOXYzine PAMOATE [Vistaril] 25 mg PO BID #14 cap Levalbuterol Tartrate [Xopenex Hfa] 2 puffs IH Q4H PRN #1 ea PRN Reason: Wheezing Diet: Regular (Celiac diet) Activity Restrictions: Activity as Tolerated Shower Restrictions: No Driving Restrictions: No Assistance Devices: Walker Weight Bearing: Full Weight Instruction Topics: Pulmonary Rehab Program, Breathing Pursed Lip Dc, Pulmonary Rehab Get Started Health Concerns: You were hospitalized to treat a spontaneous pneumothorax, which is formed when a bleb (from severe COPD), bursts and causes trapped air in the chest to crowd out the working lung. This is a medical emergency. You needed a chest tube inserted to suction out the trapped air, to let your own lung re-inflate and work. The chest tube has been removed and we monitored you for a day after removal, and it appears to be stable. You have severe COPD and were already on home oxygen, but you were only using as needed Albuterol puffers. We learned that you are about to receive Spiriva (Tiotropium inhaler) from the [facility] source. Please start using the Spiriva inhaler; it is not meant to be used as a Rescue inhaler, but is an excellent Maintenance COPD treatment (and does not cause jitteriness, by the way). While here, you were treated with misted bronchodilators, inhaled steroids and oral steroids. Also, we treated your bronchitis with antibiotics, and you have completed the course of antibiotics. We did not order Guaifenesin to help cough up the phlegm, since that makes you jittery. We learned that you have PTSD and longstanding anxiety and that your Albuterol inhaler use also makes you jittery. We started you on Remeron for Anxiety/Depression, which your stomach tolerated, so you are being prescribed this. Vistaril or Benadryl can be used for calming your anxiety also, and Vistaril was prescribed. You are being discharged with new prescriptions for steroids (oral Prednisone) to do a slow taper to off over several weeks, and also with new prescriptions for Montelukast (a nightime pill that opens airways), Xopenex rescue inhaler (that does not cause jitteriness, and you got that while here), Remeron (for anxiety), and Vistaril (for anxiety). All new prescriptions were electronically sent to the [facility] in [place]. Remember to also start using the Spiriva (Tiotropium). I reordered your home oxygen. You should call the company that provides the equipment and see if there is a quieter oxygen machine that you can get. You need to establish getting care from a Primary Care Provider. You may also need to start going to a Lung specialist. You would benefit from attending Pulmonary Rehab as an outpatient, which is available here in the building on the ground floor, attending twice or three times a week. Your doctor has to order Pulmonary Rehab for you to start. Pulmonary rehab helps improve your respiratory muscles and attending also gives you tips and how to manage your COPD. Plan of Treatment: As above. Care Goals: Improvement in symptoms and stabilization are the goals. Assessment: The patient understands and is agreeable with the plan. Additional Instructions or Follow Up instructions: If you have new or worsening symptoms, call your Primary Care Provider for advice, or go to a Walk-In Clinic, or the ER. Follow-Up Care: [facility] - Pulmonary No Smoking: If you smoke, Please STOP! Call for help.
--- NOTE | 2023-12-02 12:06 | DISCHARGE SUMMARY ---
Discharge Summary Admit Date: 11/23/23 Discharge Date: 12/02/23 Discharging Provider: Dr Silvina Nino Primary Care Provider: -None- Code Status: Attempt Resuscitation (A new POLST was signed while she was here.) Condition at Discharge: Fair Discharge Disposition: 01 Home, Self Care - HPI History of Present Illness: 68-year-old woman with oxygen dependent COPD presents with about 4 days of chest congestion and a wet cough with green sputum and increased shortness of breath, but without fevers. She is supposed to be on Spiriva for her COPD but cannot afford that, so for the most part she just has an albuterol rescue inhaler at home. She is working with [employer] [facility] to try to get her Spiriva. She denies chest pain. No pedal edema or calf pain other than chronic aches and pains. No heart Hx in the past. Patient is slightly hard of hearing and history was obtained with her son on speaker phone, and they were informed about my role as a Telehospitalist and am based [place] a different [place] Pt does have O2 at home does not use it regularly as it makes her sinuses dry. She is also a recent ex smoker (quit 3 weeks ago). 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 In the ER, her respiratory PCR is neg, and her CXR shows a L- sided pneumothorax. She will be taken to the OR for chest tube insertion, then be admitted for managing that and a COPD exacerbation. - HOSPITAL COURSE Hospital Course: (1) Spontaneous pneumothorax Complete pneumothorax was seen on 11/25/23 CXR so she went to the OR for chest tube placement. She needed the chest tube for re-expansion for many days, until the pneumothorax finally resolved by CXR and was remove at bedside by Gen Surgery. She was monitored for 1 day after removal and remained stable and was discharged home. (2) Acute on chronic respiratory failure with hypoxia She was requiring 4 to 5 L nasal cannula while here, which slowly was weaned down to her home setting of 2 L/min continuous. (3) Haemophilus infection At admission, she had copious secretions, was coughing up green sputum. She was started on empiric Keflex, which did not help. It was then changed to Augmentin and a sputum culture was sent off. The sputum culture grew Haemophilus parainfluenza. The p.o. Augmentin gave her nausea and abdominal pain, thus her antibiotic was changed to iv Zithromax. On this, she improved and finished her course of antibiotics while here. (4) COPD exacerbation She recently quit smoking on her own (about a month ago). At home she was only on Albuterol MDI as needed. While here, we gave her Duonebs, and Prednisone. This caused her anxiety and tremulousness, so the Prednisone dose was decreased and she was discharge to finish a taper at home over several weeks. I prescribed new Xopenex inhaler and advised she start taking the Spiriva (which was to arrive to her home, from the [facility] source). I taught her pursed lip breathing and she was using it. I advised her to establish with a PCP and also recommended Pulmonary Rehab after discharge. (5) Celiac disease This was not in her chart, it was learned by the [employer], and then we changed her to a celiac diet. (6) Anxiety She eventually disclosed that she has a long history of anxiety and used to be on Paxil, took it for 9 years, had terrible panic attacks as she tapered herself off over 12 months. She has been on no anxiolytic for 10-12 years and wanted to retry something. I ordered Remeron at bedtime, and her stomach could tolerate it, thus she was discharged on this and prn Vistaril. (7) PTSD This was not in her chart. She reported this Hx to me on her last day. - ALLERGIES Allergies/Adverse Reactions: Allergies Allergy/AdvReac Type Severity Reaction Status Date / Time gluten Allergy Cramps Verified 11/26/23 14:15 "Antibiotics" AdvReac Emesis Uncoded 11/23/23 11:17 - MEDICATIONS Home Medications: Ambulatory Orders Medication Instructions Recorded Confirmed Acetaminophen [Tylenol] 500 mg PO Q6H PRN 11/25/22 11/24/23 Albuterol Sulf [Ventolin Hfa 1 - 2 puffs INH Q4HR PRN #18 gm 11/25/22 11/24/23 Inhaler] Levalbuterol Tartrate [Xopenex Hfa] 2 puffs IH Q4H PRN #1 ea 12/02/23 Mirtazapine [Remeron] 15 mg PO QPM #30 tab 12/02/23 Montelukast [Singulair] 10 mg PO QPM #30 tab 12/02/23 hydrOXYzine PAMOATE [Vistaril] 25 mg PO BID #14 cap 12/02/23 predniSONE [Deltasone] 5 - 30 mg PO DAILY #46 tablet 12/02/23 - PHYSICAL EXAM AT DISCHARGE General Appearance: positive: No acute distress, Alert, Other (Ccachectic, appears older than her age.) Eyes Bilateral: positive: Normal inspection, EOMI ENT: positive: ENT inspection nml, Other (wearing O2 n.c.) Neck: positive: Nml inspection, No JVD Respiratory: positive: No respiratory distress, Other (Poor air mvm in all lung ozuna but no wheezing or rhonchi) Cardiovascular: positive: Regular rate & rhythm, No murmur (distant heart sounds due to COPD) Abdomen: positive: Non-tender, Nml bowel sounds, No distention Skin: positive: Warm, Dry Extremities: positive: Non-tender, No pedal edema Neurologic/Psychiatric: positive: Oriented x3, CN's nml (2-12), Motor nml - LABS Result Diagrams: 11/28/23 09:25 11/28/23 09:25 - DIAGNOSTIC IMAGING Diagnostic Imaging Results: Final report reviewed - SEPSIS Current Stage of Sepsis: Ruled out - FOLLOW UP Follow Up: Establish with a PCP and have a hospital F/U visit in 1-2 weeks. - TIME SPENT Time Spent in Discharge (Minutes): 50
[2023-12-02 14:46] VITALS: BP 132/69; O2SAT 92
== END 2023-12-02 15:08 | disposition home or self-care (01) | DRG 190 ==
LOC: ED 11:00 → MS2 21:33
PROVIDERS: ADMIT Internal Medicine; ATTEND Internal Medicine
PROC: 0W9B00Z Drainage of Left Pleural Cavity with Drainage Device, Open Approach (ICD-10-PCS; principal; 2023-11-25 14:00)
DX: J44.1 Chronic obstructive pulmonary disease with (acute) exacerbation (principal); J93.12 Secondary spontaneous pneumothorax; F17.200 Nicotine dependence, unspecified, uncomplicated; J96.21 Acute and chronic respiratory failure with hypoxia; J93.11 Primary spontaneous pneumothorax; H91.90 Unspecified hearing loss, unspecified ear; R11.2 Nausea with vomiting, unspecified; T36.0X5A Adverse effect of penicillins, initial encounter; T36.1X5A Adverse effect of cephalosporins and other beta-lactam antibiotics, initial encounter; Y92.230 Patient room in hospital as the place of occurrence of the external cause; F41.9 Anxiety disorder, unspecified; T38.0X5A Adverse effect of glucocorticoids and synthetic analogues, initial encounter; G25.1 Drug-induced tremor; K90.0 Celiac disease; F43.10 Post-traumatic stress disorder, unspecified; H54.7 Unspecified visual loss; M19.90 Unspecified osteoarthritis, unspecified site; G89.29 Other chronic pain; M54.9 Dorsalgia, unspecified; J20.4 Acute bronchitis due to parainfluenza virus; J44.0 Chronic obstructive pulmonary disease with (acute) lower respiratory infection; Z79.899 Other long term (current) drug therapy; Z81.1 Family history of alcohol abuse and dependence; Z82.3 Family history of stroke; Z87.891 Personal history of nicotine dependence; Z88.1 Allergy status to other antibiotic agents; Z91.141 Patient's other noncompliance with medication regimen due to financial hardship; Z91.198 Patient's noncompliance with other medical treatment and regimen for other reason; Z99.81 Dependence on supplemental oxygen
CPT/HCPCS: 36415; 71045; 80048; 80053; 82607; 82746; 82803; 83735; 85025; 87070; 87077; 87205; 94640; 96374; 99285; A9270; J7512

== ENCOUNTER 2024-01-02 06:28 | Emergency (ER) | payer MEDICARE, OTHER ==
[2024-01-02 07:03] LABS: BASOPHILS % (AUTO) 0.3 %; EOSINOPHILS % (AUTO) 0.2 %; HCT - HEMATOCRIT 42.1 % (37.0-47.0); HGB - HEMOGLOBIN 14.1 g/dL (12.0-16.0); LYMPHOCYTES # (AUTO) 0.4 10^3/uL (1.5-3.5); LYMPHOCYTES % (AUTO) 6.8 %; MEAN CORPUSCULAR HEMOGLOBIN 32.6 pg (27.0-31.0); MEAN CORPUSCULAR HGB CONC 33.5 g/dL (32.0-36.0); MEAN CORPUSCULAR VOLUME 97.5 fL (81.0-99.0); MEAN PLATELET VOLUME 9.2 fL (7.9-10.8); MONOCYTES # (AUTO) 0.5 10^3/uL (0.0-1.0); MONOCYTES % (AUTO) 8.3 %; NEUTROPHILS # (AUTO) 5.2 10^3/uL (1.5-6.6); NEUTROPHILS % (AUTO) 84.2 %; PLT - PLATELET COUNT 244 10^3/uL (130-450); RED BLOOD COUNT 4.32 10^6/uL (4.20-5.40); RED CELL DISTRIBUTION WIDTH 12.6 % (12.0-15.0); WHITE BLOOD COUNT 6.1 x10^3/uL (4.8-10.8)
[2024-01-02 07:22] LABS: ALBUMIN 4.2 g/dL (3.2-5.5); ALBUMIN/GLOBULIN RATIO 1.4 (1.0-2.2); BILIRUBIN,TOTAL 0.4 mg/dL (0.2-1.0); CALCIUM 9.8 mg/dL (8.5-10.3); CREATININE 0.6 mg/dL (0.6-1.3); POTASSIUM 3.9 mmol/L (3.5-4.5); TOTAL PROTEIN 7.3 g/dL (6.4-8.9)
[2024-01-02 07:25] LABS: TROPONIN I HIGH SENSITIVITY 3.5 ng/L (2.3-14.8)
--- NOTE | 2024-01-02 07:25 | ED Physician Documentation ---
PD HPI DYSPNEA - Stated complaint Stated Complaint: HIGH HR,SOA - Chief complaint Chief Complaint: Cardiac - History obtained from History obtained from: Patient - Additional information Additional information: Patient is a 68-year-old female with a history of COPD, recent admission with a pneumothorax presenting for evaluation of feeling palpitations and her heart pounding at night with elevated heart rate. At times she reports feeling short of air. She denies chest pain. Last night around 330 she says she woke up and her heart was racing and she checked her pulse with a home device she has and it was reading around 120-130. She reports trying to calm her breathing down but she states it took over an hour for her heart rate to normalize. She reports having increased anxiety over the last month and has been trying to work with her PCP to get this managed but has not been doing well with trials of medications that she states that medications they have tried on her have made her anxiety worse. She is wanting to speak to a counselor but has been having trouble finding one that takes Medicare. Denies SI or HI. No chest pain. She always has a cough with some sputum production which she states is unchanged. Sputum this morning was yellow in color. No blood. Does not take a blood thinner.She is no longer smoking. She does have oxygen to use at home as needed and feels like she is needed at times over the past few days. Review of Systems Constitutional: denies: Fever Cardiac: reports: Palpitations. 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 HEENT: Chronic vision loss, Chronic hearing loss Psych: Anxiety Musculoskeletal: Osteoarthritis, Chronic back pain, Other Derm: None - Past Surgical History Past Surgical History: Yes HEENT: Tonsil/Adenoidectomy - Present Medications Home Medications: Ambulatory Orders Medication Instructions Recorded Confirmed Albuterol Sulf [Ventolin Hfa 1 - 2 puffs INH Q4HR PRN #18 gm 11/25/22 11/24/23 Inhaler] Mirtazapine [Remeron] 15 mg PO QPM #30 tab 12/02/23 LORazepam [Ativan] 1 mg PO TID PRN #6 tablet 01/02/24 Tiotropium [place] 18 mcg IH DAILY 01/02/24 01/02/24 - Allergies Allergies/Adverse Reactions: Allergies Allergy/AdvReac Type Severity Reaction Status Date / Time gluten Allergy Cramps Verified 01/02/24 07:06 "Antibiotics" AdvReac Emesis Uncoded 01/02/24 07:06 - Social History Does the pt smoke?: Yes Smoking Status: Current every day smoker Does the pt drink ETOH?: No Does the pt have substance abuse?: No - Immunizations Immunizations are current?: Yes - POLST Patient has POLST: No POLST Status: Full Code PD ED PE NORMAL - General General: Alert and oriented X 3, No acute distress, Well developed/nourished - HEENT HEENT: Atraumatic, Moist mucous membranes, Pharynx benign - Neck Neck: Supple, no meningeal sign - Cardiac Cardiac: RRR, Strong equal pulses - Respiratory Respiratory: No respiratory distress, Clear bilaterally - Abdomen Abdomen: Normal bowel sounds, Soft, Non tender, Non distended - Derm Derm: Warm and dry - Extremities Extremities: No calf tenderness / cord - Neuro Neuro: Normal speech - Psych Psych: Other (Anxious; does not want exam room door closed stating she feels claustrophobic) Results - Vitals Vitals: Vital Signs - 24 hr 01/02/24 01/02/24 01/02/24 06:43 06:49 08:49 Temperature 36.9 C Heart Rate 96 89 88 Respiratory 24 27 H 26 H Rate Blood Pressure 134/77 H 132/87 H O2 Saturation 92 90 L 93 01/02/24 09:25 Temperature Heart Rate 80 Respiratory 24 Rate Blood Pressure 128/78 O2 Saturation 93 Oxygen O2 Source Room air - EKG (time done) 0647 EKG releavant findings:: EKG personally interpreted by author of this note. Relevant findings are: Rate 82, normal sinus rhythm, motion artifact in lead V2, no STEMI, QTc 416 - Labs Labs: Laboratory Tests 01/02/24 01/02/24 01/02/24 06:56 06:56 06:56 WBC 6.1 RBC 4.32 Hgb 14.1 Hct 42.1 MCV 97.5 MCH 32.6 H MCHC 33.5 RDW 12.6 Plt Count 244 MPV 9.2 Neut # (Auto) 5.2 Lymph # (Auto) 0.4 L [place] # (Auto) 0.5 Eos # (Auto) 0.0 Baso # (Auto) 0.0 Absolute Nucleated RBC 0.00 Nucleated RBC % 0.0 D-Dimer < 200.0 L Sodium 131 L Potassium 3.9 Chloride 97 L Carbon Dioxide 28 Anion Gap 6.0 BUN 12 Creatinine 0.6 Estimated GFR (MDRD) 99 Glucose 99 Calcium 9.8 Total Bilirubin 0.4 AST 19 ALT 17 Alkaline Phosphatase 70 Troponin I High Sens 3.5 Total Protein 7.3 Albumin 4.2 Globulin 3.1 Albumin/Globulin Ratio 1.4 Lipase 46 TSH Nasal Adenovirus (PCR) Nasal B. parapertussis DNA (PCR) Nasal Coronavir 229E PCR Nasal Coronavir HKU1 PCR Nasal Coronavir NL63 PCR Nasal Coronavir OC43 PCR Nasal Enterovir/Rhinovir PCR Nasal Influenza B PCR Nasal Influenza A PCR Nasal Parainfluen 1 PCR Nasal Parainfluen 2 PCR Nasal Parainfluen 3 PCR Nasal Parainfluen 4 PCR Nasal RSV (PCR) Nasal B.pertussis DNA PCR Nasal C.pneumoniae (PCR) [place]oe Human Metapneumo PCR Nasal M.pneumoniae (PCR) Nasal SARS-CoV-2 (PCR) 01/02/24 01/02/24 06:56 07:10 WBC RBC Hgb Hct MCV MCH MCHC RDW Plt Count MPV Neut # (Auto) Lymph # (Auto) [place] # (Auto) Eos # (Auto) Baso # (Auto) Absolute Nucleated RBC Nucleated RBC % D-Dimer Sodium Potassium Chloride Carbon Dioxide Anion Gap BUN Creatinine Estimated GFR (MDRD) Glucose Calcium Total Bilirubin AST ALT Alkaline Phosphatase Troponin I High Sens Total Protein Albumin Globulin Albumin/Globulin Ratio Lipase TSH 0.93 Nasal Adenovirus (PCR) NOT DETECTED Nasal B. parapertussis DNA (PCR) NOT DETECTED Nasal Coronavir 229E PCR NOT DETECTED Nasal Coronavir HKU1 PCR NOT DETECTED Nasal Coronavir NL63 PCR NOT DETECTED Nasal Coronavir OC43 PCR NOT DETECTED Nasal Enterovir/Rhinovir PCR NOT DETECTED Nasal Influenza B PCR NOT DETECTED Nasal Influenza A PCR NOT DETECTED Nasal Parainfluen 1 PCR NOT DETECTED Nasal Parainfluen 2 PCR NOT DETECTED Nasal Parainfluen 3 PCR NOT DETECTED Nasal Parainfluen 4 PCR NOT DETECTED Nasal RSV (PCR) NOT DETECTED Nasal B.pertussis DNA PCR NOT DETECTED Nasal C.pneumoniae (PCR) NOT DETECTED Roe Human Metapneumo PCR NOT DETECTED Nasal M.pneumoniae (PCR) NOT DETECTED Nasal SARS-CoV-2 (PCR) NOT DETECTED PD Medical Decision Making - ED course Complexity details: reviewed results, re-evaluated patient, d/w patient, d/w family ED course: Patient is a 68-year-old female with a history of COPD, pneumothorax presenting for evaluation of feeling palpitations and increased anxiety.Initial vital signs are stable. Lung sounds are clear. EKG is reviewed and nonischemic. CBC, chemistry, troponin, D-dimer and respiratory swab were obtained and reviewed wit hout significant findings. TSH is unremarkable. Chest x-ray which I reviewed is negative for consolidation or pneumothorax. Patient remained on the monitor here with no arrhythmias noted. She is feeling better but still reports having ongoing anxiety which has not improved with any medications that she has recently tried while hospitalized as well as through her PCP. She would like to consider a trial of Ativan as a short-term option until she is able to see her PCP. At this time I do not see signs of ACS, pulmonary embolism. She is comfortable with plan for discharge. Son is at the bedside. They are advised on concerning symptoms to return for. Departure - Departure Disposition: Home, Self Care Clinical Impression: Palpitations Condition: Stable Instructions: ED Hyperventilation Syndrome, ED Palpitations Follow-Up: Neha Pereira MD [Provider Admit Priv/Credential] - Prescriptions: LORazepam [Ativan] 1 mg PO TID PRN #6 tablet PRN Reason: Anxiety Comments: Your lab testing today is reassuring does not show any significant abnormalities. We do not see signs of a heart attack, blood clot in your lung, thyroid issue, collapsed lung, infection. Your vital signs here have been stable. I do think you need close follow-up with your primary care provider regarding your palpitations and symptoms. You may need a heart monitor. If you develop worsening symptoms please return to the emergency department. We also discussed your increased anxiety over the past month. I have given you a list of local counseling services. I have also sent a small amount of an antianxiety medication called Ativan to [facility] in [place]. This is to be used only as needed and for a short term. Again please have close follow-up with your primary care provider to continue to work on helping you with the symptoms. Forms: PCP List Discharge Date/Time: 01/02/24 09:27
[2024-01-02 08:17] LABS: B. PARAPERTUSSIS- RESP PCR PAN NOT DETECTED; B. PERTUSSIS- RESP PCR PANEL NOT DETECTED; C. PNEUMONIAE- RESP PCR PANEL NOT DETECTED; CORONAVIRUS 229E-RESP PCR NOT DETECTED; CORONAVIRUS HKU1-RESP PCR NOT DETECTED; CORONAVIRUS NL63-RESP PCR NOT DETECTED; CORONAVIRUS OC43-RESP PCR NOT DETECTED; HUMAN METAPNEUMOVIRUS NOT DETECTED; INFLUENZA A- RESP PCR PANEL NOT DETECTED; INFLUENZA B - RESP PCR PANEL NOT DETECTED; M. PNEUMONIAE- RESP PCR PANEL NOT DETECTED; PARAINFLUENZA VIRUS 1 NOT DETECTED; PARAINFLUENZA VIRUS 2 NOT DETECTED; PARAINFLUENZA VIRUS 3 NOT DETECTED; PARAINFLUENZA VIRUS 4 NOT DETECTED; RHINOVIRUS/ENTEROVIRUS NOT DETECTED; RSV- RESP PCR PANEL NOT DETECTED; SARS-CoV-2 -RESP PCR PANEL NOT DETECTED
[2024-01-02 09:36] VITALS: BP 128/78; O2SAT 93
--- NOTE | 2024-01-02 13:06 | XRAY Report ---
PROCEDURE: Chest 1V INDICATIONS: dyspnea TECHNIQUE: One view of the chest was acquired. COMPARISON: None. FINDINGS: Surgical changes and devices: None. Lungs and pleura: Lungs are hyperinflated. Chronic interstitial scarring is present. Mediastinum: Mediastinal contours appear normal. Heart size is enlarged. Bones and chest wall: No suspicious bony lesions. Overlying soft tissues appear unremarkable. IMPRESSION: Hyperinflation suggestive COPD. No effusions or consolidations. The above findings are concordant with preliminary report. Reviewed by: Ina Teixeira MD on 01/02/2024 1:04 PM [facility] Approved by: Ina Teixeira MD on 01/02/2024 1:04 PM [facility] Station ID: [id number]
== END 2024-01-02 09:27 | disposition home or self-care (01) ==
LOC: ED 06:28
DX: R00.2 Palpitations (principal); F41.9 Anxiety disorder, unspecified; Z87.891 Personal history of nicotine dependence
CPT/HCPCS: 36415; 80053; 83690; 84443; 84484; 85025; 85379; 87633; 93005; 99284

== ENCOUNTER 2024-01-14 15:07 | Emergency (ER) | payer MEDICARE, OTHER ==
[2024-01-14 17:06] LABS: BASOPHILS # (AUTO) 0.1 10^3/uL (0.0-0.1); HCT - HEMATOCRIT 41.9 % (37.0-47.0); HGB - HEMOGLOBIN 13.6 g/dL (12.0-16.0); LYMPHOCYTES # (AUTO) 0.7 10^3/uL (1.5-3.5); LYMPHOCYTES % (AUTO) 9.6 %; MEAN CORPUSCULAR HEMOGLOBIN 31.9 pg (27.0-31.0); MEAN CORPUSCULAR HGB CONC 32.5 g/dL (32.0-36.0); MEAN CORPUSCULAR VOLUME 98.4 fL (81.0-99.0); MEAN PLATELET VOLUME 8.8 fL (7.9-10.8); MONOCYTES # (AUTO) 0.8 10^3/uL (0.0-1.0); MONOCYTES % (AUTO) 11.9 %; NEUTROPHILS # (AUTO) 5.4 10^3/uL (1.5-6.6); NEUTROPHILS % (AUTO) 77.2 %; PLT - PLATELET COUNT 309 10^3/uL (130-450); RED BLOOD COUNT 4.26 10^6/uL (4.20-5.40); RED CELL DISTRIBUTION WIDTH 12.8 % (12.0-15.0)
[2024-01-14 17:19] LABS: INR 1.1 (0.8-1.2)
[2024-01-14 17:24] LABS: ALBUMIN 3.7 g/dL (3.2-5.5); ALBUMIN/GLOBULIN RATIO 1.4 (1.0-2.2); BILIRUBIN,TOTAL 0.4 mg/dL (0.2-1.0); CALCIUM 9.2 mg/dL (8.5-10.3); CREATININE 0.5 mg/dL (0.6-1.3); POTASSIUM 3.7 mmol/L (3.5-4.5); TOTAL PROTEIN 6.3 g/dL (6.4-8.9)
[2024-01-14 18:57] LABS: BILIRUBIN,URINE SMALL (NEGATIVE); GLUCOSE, URINE (UA) NEGATIVE (NEGATIVE); KETONES,URINE (UA) 40 mg/dL (NEGATIVE); LEUKOCYTE ESTERASE, URINE NEGATIVE (NEGATIVE); NITRITE,URINE NEGATIVE (NEGATIVE); OCCULT BLOOD,URINE TRACE-INTA (NEGATIVE); PROTEIN,URINE NEGATIVE (NEGATIVE); UROBILINOGEN,URINE 0.2 (NORMAL) E.U./dL (NORMAL)
[2024-01-14] MEDS ORDERED: iohexoL-300 100 ML VIAL ONE (18:58)
[2024-01-14 19:06] LABS: CLARITY,URINE CLEAR (CLEAR)
--- NOTE | 2024-01-14 19:16 | ED Physician Documentation ---
History of Present Illness - Stated complaint Stated Complaint: ,BLEEDING/DIARRHEA - Chief complaint Chief Complaint: Abd Pain - Additonal information Additional information: Patient 68-year-old female presenting the emergency department with chief complaint nausea, abdominal discomfort, bright red blood per rectum. Mika has been having multiple episodes of intermittent constipation and diarrhea for several months. This is after recent hospitalization in November for spontaneous pneumothorax in setting COPD. Mika has been taking prunes and other fiber for foodsTo help with her constipation. Reports yesterday drank a green smoothie and had profuse green watery diarrhea with streaks of bright red blood. Does endorse for history internal hemorrhoids. Denies fever, chills, chest pain, shortness of breath. 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 HEENT: Chronic vision loss, Chronic hearing loss Psych: Anxiety Musculoskeletal: Osteoarthritis, Chronic back pain, Other Derm: None - Past Surgical History Past Surgical History: Yes HEENT: Tonsil/Adenoidectomy - Present Medications Home Medications: Ambulatory Orders Medication Instructions Recorded Confirmed Albuterol Sulf [Ventolin Hfa 1 - 2 puffs INH Q4HR PRN #18 gm 11/25/22 11/24/23 Inhaler] Mirtazapine [Remeron] 15 mg PO QPM #30 tab 12/02/23 LORazepam [Ativan] 1 mg PO TID PRN #6 tablet 01/02/24 Tiotropium [place] 18 mcg IH DAILY 01/02/24 01/02/24 - Allergies Allergies/Adverse Reactions: Allergies Allergy/AdvReac Type Severity Reaction Status Date / Time gluten Allergy Cramps Verified 01/02/24 07:06 "Antibiotics" AdvReac Emesis Uncoded 01/02/24 07:06 - Social History Does the pt smoke?: Yes Smoking Status: Current every day smoker Does the pt drink ETOH?: No Does the pt have substance abuse?: No - Immunizations Immunizations are current?: Yes - POLST Patient has POLST: No POLST Status: Full Code PD ED PE NORMAL - General General: Alert and oriented X 3 - HEENT HEENT: Atraumatic - Neck Neck: Supple, no meningeal sign - Cardiac Cardiac: RRR - Respiratory Respiratory: No respiratory distress - Abdomen Abdomen: Normal bowel sounds - Female Female : Other (Nonpropulsive external hemorrhoids noted. Dark red liquidy stool in the rectal vault. 1 internal hemorrhoid palpated.) Results - Vitals Vitals: Vital Signs - 24 hr 01/14/24 01/14/24 15:13 17:41 Temperature 36.2 C L Heart Rate 93 91 Respiratory 16 20 Rate Blood Pressure 121/63 134/70 H O2 Saturation 94 91 L Oxygen O2 Source Room air - Labs Labs: Laboratory Tests 01/14/24 01/14/24 01/14/24 17:02 17:02 17:02 WBC 7.0 RBC 4.26 Hgb 13.6 Hct 41.9 MCV 98.4 MCH 31.9 H MCHC 32.5 RDW 12.8 Plt Count 309 MPV 8.8 Neut # (Auto) 5.4 Lymph # (Auto) 0.7 L [place] # (Auto) 0.8 Eos # (Auto) 0.0 Baso # (Auto) 0.1 Absolute Nucleated RBC 0.00 Nucleated RBC % 0.0 PT 12.0 INR 1.1 Sodium 134 L Potassium 3.7 Chloride 98 L Carbon Dioxide 27 Anion Gap 9.0 BUN 12 Creatinine 0.5 L Estimated GFR (MDRD) 122 Glucose 97 Calcium 9.2 Total Bilirubin 0.4 AST 14 ALT 14 Alkaline Phosphatase 61 Total Protein 6.3 L Albumin 3.7 Globulin 2.6 Albumin/Globulin Ratio 1.4 Lipase 22 Urine Color Urine Clarity Urine pH Ur Specific [place] Urine Protein Urine Glucose (UA) Urine Ketones Urine Occult Blood Urine Nitrite Urine Bilirubin Urine Urobilinogen Ur Leukocyte Esterase Ur Microscopic Review Urine Culture Comments 01/14/24 18:20 WBC RBC Hgb Hct MCV MCH MCHC RDW Plt Count MPV Neut # (Auto) Lymph # (Auto) [place] # (Auto) Eos # (Auto) Baso # (Auto) Absolute Nucleated RBC Nucleated RBC % PT INR Sodium Potassium Chloride Carbon Dioxide Anion Gap BUN Creatinine Estimated GFR (MDRD) Glucose Calcium Total Bilirubin AST ALT Alkaline Phosphatase Total Protein Albumin Globulin Albumin/Globulin Ratio Lipase Urine Color YELLOW Urine Clarity CLEAR Urine pH 6.0 Ur Specific [place] >=1.030 H Urine Protein NEGATIVE Urine Glucose (UA) NEGATIVE Urine Ketones 40 H Urine Occult Blood TRACE-INTA Urine Nitrite NEGATIVE Urine Bilirubin SMALL H Urine Urobilinogen 0.2 (NORMAL) Ur Leukocyte Esterase NEGATIVE Ur Microscopic Review NOT INDICATED Urine Culture Comments NOT INDICATED PD Medical Decision Making - ED course Complexity details: reviewed results, d/w patient ED course: Patient 68-year-old female presenting to the emergency department with concern for bright red blood per rectum. Afebrile, hematin stable on arrival to the emergency department. Patient endorsed for some increased nausea and discomfort with lower abdominal palpation but no "pain" ". Labs obtained all generally reassuring. No leukocytosis, stable white count. Rectal exam demonstrated some non-Propulsid Or thrombosed external hemorrhoids as well as 1 palpable internal hemorrhoid. There is also some dark-red liquidy stool in the rectal vault. No abdirizak red blood. I have ordered for medication for nausea, Imodium, stool studies as well as a fecal occult. I have ordered for CT of the abdomen pelvis to be performed. I will be signing the patient out to the oncoming physician, please see their documentation for further detail. Departure - Departure
[2024-01-14] MEDS: SODIUM CHLORIDE 0.9% 1,000 ML IV STA (19:20)
[2024-01-14] MEDS: ONDANSETRON 4 MG/2 ML VIAL IVP STA (19:20)
[2024-01-14] MEDS: iohexoL-300 100 ML VIAL IVP ONE (20:02)
--- NOTE | 2024-01-14 20:26 | CT Report ---
PROCEDURE: Abdomen/Pelvis W INDICATIONS: lower abd pain CONTRAST: Omni 300 100ml TECHNIQUE: After the administration of intravenous contrast, a CT scan of the abdomen and pelvis was performed. Images were recorded and evaluated at appropriate window settings. Reformats: coronal and sagittal. F or radiation dose reduction, the following was used: automated exposure control, adjustment of mA and /or kV according to patient size. COMPARISON: None. FINDINGS: Image quality: Diagnostic. Lower chest: Unremarkable. Liver: No solid mass. A benign-appearing cyst is seen in the left hepatic lobe. Gallbladder and biliary tree: No radiopaque stones or wall thickening. Mild prominence of the common bile duct is likely within normal limits for patient's age. Spleen: No splenomegaly. Pancreas: No pancreatic ductal dilation. Adrenals: No adrenal nodule. Kidneys and ureters: No hydronephrosis. No renal cystic lesion which requires follow up. No solid mas s. Stomach, bowel and peritoneum: Mild bowel thickening is seen throughout the colon that could indicate nonspecific colitis. No extravasation of intravenous contrast material is seen. There is relative hy poenhancement of the small bowel loops in the pelvis. No ascites. No convincing pneumoperitoneum. Lymph nodes: No central or retroperitoneal adenopathy. Vessels: No infrarenal aortic aneurysm. PELVIS Reproductive organs: Unremarkable. Bladder: No abnormal wall thickening, accounting for underdistention. Pelvic lymph nodes: No pelvic adenopathy by size criteria. Bones: No aggressive osseous abnormality. Other: No significant ventral or inguinal hernia. IMPRESSION: 1.Diffuse bowel wall thickening and hyperenhancement throughout the colon is suspicious for a nonspec ific colitis. No extravasation of intravenous contrast material is seen within the bowel lumen. 2.Relative hypoenhancement of the small bowel loops in the pelvis, which may be related to the timing of the contrast bolus versus shunting of blood to the hyperemic colon versus possibly ischemic bowel . No focal arterial occlusion is seen. No signs of bowel obstruction or pneumoperitoneum. Recommend c orrelation with lactate level to exclude the possibility of ischemia. Reviewed by: Pteros Coyle MD on 01/14/2024 8:24 PM PDT Approved by: Petros Coyle MD on 01/14/2024 8:24 PM PDT Station ID: [id number]
--- NOTE | 2024-01-14 21:47 | ED Physician Documentation ---
ED Addendum - Addendum Addendum: 01/14/24 21:[address] scan came back showing a diffuse colitis. Suggestion of ischemic colitis but the patient is C. difficile positive so as alternate reason and her degree of pain and tenderness is not corresponding to ischemia. She did have some blood in the stool and is guaiac positive. I presume this is from irritation. I did suggest to her that and follow-up subsequently to this she may want to get a colonoscopy to ensure no other lesions that might have been bleeding along with the irritation. Meanwhile we will treat with the vancomycin orally along with probiotics Tylenol and to stay well-hydrated. Suggestion on diet was easily absorbed such as starches (rice Posta's etc.). Follow-up with her primary care. I sent her prescriptions to [facility] in [place]. Disposition: Patient discharged home in stable condition Diagnoses: 1. Acute diarrhea 2. C. difficile colitis 3. Hematochezia 4. Nausea 5. Abdominal cramping
[2024-01-14] MEDS: VANCOMYCIN 125 MG CAPSULE PO STA (21:58)
[2024-01-14 22:04] VITALS: BP 122/68; O2SAT 96
== END 2024-01-14 22:13 | disposition home or self-care (01) ==
LOC: ED 15:07
DX: A04.72 Enterocolitis due to Clostridium difficile, not specified as recurrent (principal); K92.1 Melena; J44.9 Chronic obstructive pulmonary disease, unspecified; Z79.899 Other long term (current) drug therapy; F17.200 Nicotine dependence, unspecified, uncomplicated
CPT/HCPCS: 36415; 74177; 80053; 81003; 82272; 83690; 85025; 85610; 87493; 96374; 99284; J8499; Q9967; 81001; 87045; 87046; 87086; 87427

== ENCOUNTER 2024-01-20 21:20 | Emergency (ER) | payer MEDICARE, OTHER ==
[2024-01-20 21:39] VITALS: O2SAT 94
[2024-01-20 21:53] LABS: BASOPHILS % (AUTO) 0.4 %; EOSINOPHILS # (AUTO) 0.1 10^3/uL (0.0-0.7); EOSINOPHILS % (AUTO) 2.3 %; HGB - HEMOGLOBIN 12.3 g/dL (12.0-16.0); LYMPHOCYTES % (AUTO) 17.8 %; MEAN CORPUSCULAR HEMOGLOBIN 31.8 pg (27.0-31.0); MEAN CORPUSCULAR HGB CONC 32.4 g/dL (32.0-36.0); MEAN CORPUSCULAR VOLUME 98.2 fL (81.0-99.0); MONOCYTES # (AUTO) 0.7 10^3/uL (0.0-1.0); MONOCYTES % (AUTO) 12.1 %; NEUTROPHILS # (AUTO) 3.8 10^3/uL (1.5-6.6); NEUTROPHILS % (AUTO) 67.2 %; PLT - PLATELET COUNT 297 10^3/uL (130-450); RED BLOOD COUNT 3.87 10^6/uL (4.20-5.40); RED CELL DISTRIBUTION WIDTH 13.1 % (12.0-15.0); WHITE BLOOD COUNT 5.6 x10^3/uL (4.8-10.8)
[2024-01-20 22:12] LABS: ALBUMIN 3.4 g/dL (3.2-5.5); ALBUMIN/GLOBULIN RATIO 1.4 (1.0-2.2); BILIRUBIN,TOTAL 0.4 mg/dL (0.2-1.0); CALCIUM 9.1 mg/dL (8.5-10.3); CREATININE 0.5 mg/dL (0.6-1.3); POTASSIUM 3.7 mmol/L (3.5-4.5); TOTAL PROTEIN 5.9 g/dL (6.4-8.9); TROPONIN I HIGH SENSITIVITY 4.2 ng/L (2.3-14.8)
--- NOTE | 2024-01-20 23:49 | ED Physician Documentation ---
History of Present Illness - Stated complaint Stated Complaint: BILAT FEET SWELLING - Chief complaint Chief Complaint: Ext Problem - History obtained from History obtained from: Patient - Additonal information Additional information: Patient comes to the emergency department chief complaint of bilateral lower extremity swelling today. She states that she was on her feet for very long hours yesterday, and thinks she may have overdone it. She denies any history of kidney or liver problems and no history of congestive heart failure. She states that she always has a little bit of enlargement of the left leg compared to the right, secondary to an old injury. She states that her left leg is still little bigger than the right. The patient had a spontaneous pneumothorax a couple of months ago and was admitted for this. She states she just feels like she has not ever been able to get back to her normal level of function since it has been very discouraging. She denies any shortness of breath or chest pain. She is not a smoker. No other complaints at this time. 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 HEENT: Chronic vision loss, Chronic hearing loss Psych: Anxiety Musculoskeletal: Osteoarthritis, Chronic back pain, Other Derm: None - Past Surgical History Past Surgical History: Yes HEENT: Tonsil/Adenoidectomy - Present Medications Home Medications: Ambulatory Orders Medication Instructions Recorded Confirmed Albuterol Sulf [Ventolin Hfa 1 - 2 puffs INH Q4HR PRN #18 gm 11/25/22 01/20/24 Inhaler] Mirtazapine [Remeron] 15 mg PO QPM #30 tab 12/02/23 01/20/24 LORazepam [Ativan] 1 mg PO TID PRN #6 tablet 01/02/24 01/20/24 Tiotropium [place] 18 mcg IH DAILY 01/02/24 01/20/24 L.acid/L.casei/B.bif/B.darell/Fos 1 each PO TID 10 Days #30 cap 01/14/24 01/20/24 [Probiotic Blend Capsule] Vancomycin HCl 125 mg PO QID 10 Days #40 cap 01/14/24 01/20/24 Acetaminophen [Tylenol] 500 mg PO DAILY 01/20/24 01/20/24 - Allergies Allergies/Adverse Reactions: Allergies Allergy/AdvReac Type Severity Reaction Status Date / Time gluten Allergy Cramps Verified 01/20/24 21:51 "Antibiotics" AdvReac Emesis Uncoded 01/20/24 21:51 - Social History Does the pt smoke?: Yes Smoking Status: Current every day smoker Does the pt drink ETOH?: No Does the pt have substance abuse?: No - Immunizations Immunizations are current?: Yes - POLST Patient has POLST: No POLST Status: Full Code PD ED PE NORMAL - Vitals Vital signs reviewed: Yes - General General: Alert and oriented X 3, No acute distress - HEENT HEENT: Atraumatic, PERRL, EOMI, Moist mucous membranes - Neck Neck: Supple, no meningeal sign - Cardiac Cardiac: RRR, No murmur - Respiratory Respiratory: No respiratory distress, Clear bilaterally - Abdomen Abdomen: Soft, Non tender, Non distended - Derm Derm: Normal color, Warm and dry, No rash - Extremities Extremities: No deformity, Other (2+ pitting edema bilateral lower extremities involving feet and lower legs.) - Neuro Neuro: Alert and oriented X 3 - Psych Psych: Normal mood, Normal affect Results - Vitals Vitals: Vital Signs - 24 hr 01/20/24 01/20/24 01/21/24 21:25 23:00 00:21 Temperature 36.4 C L Heart Rate 95 89 80 Respiratory 16 17 16 Rate Blood Pressure 141/82 H 120/75 126/72 O2 Saturation 94 94 94 Oxygen O2 Source Room air - Labs Labs: Laboratory Tests 01/20/24 01/20/24 01/20/24 21:26 21:46 21:46 WBC 5.6 RBC 3.87 L Hgb 12.3 Hct 38.0 MCV 98.2 MCH 31.8 H MCHC 32.4 RDW 13.1 Plt Count 297 MPV 9.0 Neut # (Auto) 3.8 Lymph # (Auto) 1.0 L Hubbard # (Auto) 0.7 Eos # (Auto) 0.1 Baso # (Auto) 0.0 Absolute Nucleated RBC 0.00 Nucleated RBC % 0.0 Sodium 130 L Potassium 3.7 Chloride 96 L Carbon Dioxide 27 Anion Gap 7.0 BUN 13 Creatinine 0.5 L Estimated GFR (MDRD) 122 Glucose 97 Calcium 9.1 Total Bilirubin 0.4 AST 25 ALT 20 Alkaline Phosphatase 68 Troponin I High Sens 4.2 B-Natriuretic Peptide 28 Total Protein 5.9 L Albumin 3.4 Globulin 2.5 Albumin/Globulin Ratio 1.4 Lipase 59 PD Medical Decision Making - ED course Complexity details: reviewed results, re-evaluated patient, considered differential, d/w patient ED course: The patient was worked up with laboratory studies including ER abdominal panel and CBC, as well as BNP, all of which were unremarkable. I have discussed elevation and wearing a pressure stockings with her. I do not think she has a DVT. The patient is stable for discharge home and we have discussed the usual indications for return. Departure - Departure Disposition: Home, Self Care Clinical Impression: Swelling of both lower extremities Condition: Stable Instructions: ED Edema Legs Bilateral Comments: Your legs are both swollen, but your labs look good. Your labs for your kidney function, liver function, and congestive heart failure all look good. Your lungs are clear and there is no evidence of fluid building up in your lungs either. Most likely, the swelling is from being on your feet for a long period yesterday and overdoing it. I do not think that this is because at this point by your vancomycin. Please finish the vancomycin as directed. Follow-up with your primary care physician as needed. For your swelling in your legs, you will need to make sure you are propping your legs up whenever possible. If you are sitting down, then please make sure your legs do not hanging down, but propped up on something nearby. If you are laying down, try to prop your feet up on even a single pillow to help encourage the swelling to drain out of your legs. If you do not want to wear the prescription grade compression stockings, then at least get a pair of [id number] compression stockings and wear those to try to exert some pressure on your swollen legs and clear the fluid out. Forms: PCP List Discharge Date/Time: 01/21/24 00:22
[2024-01-21 00:24] VITALS: BP 126/72
== END 2024-01-21 00:22 | disposition home or self-care (01) ==
LOC: ED 21:20
DX: M79.89 Other specified soft tissue disorders (principal); J44.9 Chronic obstructive pulmonary disease, unspecified; Z79.899 Other long term (current) drug therapy
CPT/HCPCS: 36415; 80053; 83690; 83880; 84484; 85025; 99283

== ENCOUNTER 2024-03-28 15:39 | Outpatient (CLI) | payer MEDICARE, OTHER ==
--- NOTE | 2024-03-28 16:35 | XRAY Report ---
PROCEDURE: Thoracic Spine 2V INDICATIONS: PAIN, THORACIC SPINE TECHNIQUE: 3 views of the thoracic spine were acquired. COMPARISON: CT 01/14/2024 FINDINGS: Bones: No fractures or dislocations. No suspicious bony lesions. 12 pairs of ribs are noted, and a ppear intact where visualized. Slight rightward curvature centered at T7. Mild, multilevel disc heig ht loss. Soft tissues: No paravertebral stripe thickening. IMPRESSION: No acute bony abnormality. Mild, multilevel degenerative disc disease. Reviewed by: Joey Oneal MD on 03/28/2024 4:34 PM PDT Approved by: Joey Oneal MD on 03/28/2024 4:34 PM PDT Station ID: [id number]
--- NOTE | 2024-03-28 16:41 | XRAY Report ---
PROCEDURE: Cervical Spine 2-3V INDICATIONS: NECK PAIN TECHNIQUE: 3 view(s) of the cervical spine were acquired. COMPARISON: Chest radiograph 01/02/2024. FINDINGS: Bones: No fractures or dislocations to the C7 level. The lateral masses of C1 appear intact on the odontoid view. No suspicious bony lesions. Moderate to severe disc height loss at all levels. Diffu se facet arthrosis, most prominent at the left side of C4-5 and the right side of C5-6. Soft tissues: No prevertebral soft tissue swelling. Biapical scarring. IMPRESSION: No displaced fracture or traumatic subluxation. Moderate to severe, multilevel degenerative disc disease and diffuse facet arthrosis. Reviewed by: Joey Oneal MD on 03/28/2024 4:40 PM PDT Approved by: Joey Oneal MD on 03/28/2024 4:40 PM PDT Station ID: [id number]
== END 2024-03-28 15:40 | disposition home or self-care (01) ==
LOC: DI.S 15:39
PROVIDERS: ATTEND Internal Medicine
DX: M51.34 Other intervertebral disc degeneration, thoracic region (principal); M47.812 Spondylosis without myelopathy or radiculopathy, cervical region; M50.31 Other cervical disc degeneration, high cervical region

== ENCOUNTER 2024-06-04 07:20 | Outpatient (CLI) | payer MEDICARE, OTHER ==
[2024-06-04 14:49] LABS: EOSINOPHILS # (AUTO) 0.1 10^3/uL (0.0-0.7); EOSINOPHILS % (AUTO) 2.4 %; HCT - HEMATOCRIT 42.3 % (37.0-47.0); HGB - HEMOGLOBIN 13.3 g/dL (12.0-16.0); MEAN CORPUSCULAR HEMOGLOBIN 31.7 pg (27.0-31.0); MEAN CORPUSCULAR HGB CONC 31.4 g/dL (32.0-36.0); MEAN CORPUSCULAR VOLUME 100.7 fL (81.0-99.0); MEAN PLATELET VOLUME 11.2 fL (7.9-10.8); MONOCYTES # (AUTO) 0.4 10^3/uL (0.0-1.0); NEUTROPHILS # (AUTO) 2.3 10^3/uL (1.5-6.6); NEUTROPHILS % (AUTO) 60.3 %; PLT - PLATELET COUNT 224 10^3/uL (130-450); RED CELL DISTRIBUTION WIDTH 13.2 % (12.0-15.0); WHITE BLOOD COUNT 3.8 x10^3/uL (4.8-10.8)
[2024-06-04 15:36] LABS: % IRON SATURATION 34 % (20-50); ALBUMIN 4.2 g/dL (3.2-5.5); ALBUMIN/GLOBULIN RATIO 1.6 (1.0-2.2); ALKALINE PHOSPHATASE 111 IU/L (42-121); ALT ALANINE AMINOTRANSFERASE 19 IU/L (10-60); AST ASPARTATE AMINOTRANSFERASE 20 IU/L (10-42); BILIRUBIN,TOTAL 0.6 mg/dL (0.2-1.0); BUN - BLOOD UREA NITROGEN 26 mg/dL (6-20); CALCIUM 9.6 mg/dL (8.5-10.3); CARBON DIOXIDE - CO2 30 mmol/L (21-32); CHLORIDE 104 mmol/L (101-111); CHOL/HDL RATIO 2.4 (<4.4); CHOLESTEROL 182 mg/dL; CREATININE 0.6 mg/dL (0.6-1.3); GFR - MDRD 99 (>89); GLUCOSE 99 mg/dL (74-104); HDL CHOLESTEROL 75 mg/dL; IRON 123 ug/dL (50-212); LDL CHOLESTEROL,CALCULATED 93 mg/dL; LDL/HDL RATIO 1.2 (<4.4); MAGNESIUM 1.9 mg/dL (1.7-2.3); POTASSIUM 3.9 mmol/L (3.5-4.5); SODIUM 138 mmol/L (135-145); TOTAL IRON BINDING CAPACITY 364 ug/dL (250-450); TOTAL PROTEIN 6.8 g/dL (6.4-8.9); TRANSFERRIN 260 mg/dL (203-362); TRIGLYCERIDES 72 mg/dL; VLDL CHOLESTEROL 14 mg/dL
[2024-06-04 15:43] LABS: THYROID STIMULATING HORMONE 1.45 uIU/mL (0.34-5.60)
[2024-06-04 15:50] LABS: FERRITIN 41.5 ng/mL (11.0-306.8)
[2024-06-05 07:10] LABS: VITAMIN D 25-HYDROXY 47.7 ng/mL (30.0-100.0)
[2024-06-05 09:11] LABS: CALCIUM IONIZED SERUM 4.9 mg/dL (4.5-5.6)
== END 2024-06-04 07:21 | disposition home or self-care (01) ==
LOC: LAB.S 07:20
PROVIDERS: ATTEND Internal Medicine
DX: R53.83 Other fatigue (principal); R53.1 Weakness; M81.0 Age-related osteoporosis without current pathological fracture; M54.6 Pain in thoracic spine; D64.9 Anemia, unspecified; Z72.0 Tobacco use
CPT/HCPCS: 36415; 80053; 80061; 82306; 82330; 82607; 82728; 83540; 83721; 83735; 83970; 84443; 84466; 85025

== ENCOUNTER 2024-06-26 11:04 | Outpatient (CLI) | payer MEDICARE, OTHER ==
--- NOTE | 2024-06-26 18:11 | CT Report ---
PROCEDURE: Sinus INDICATIONS: CHRONIC PANSINUSITIS TECHNIQUE: Noncontrast thin section axial images acquired from the frontal sinuses to the mid-sella, with boyce l and sagittal reformats. For radiation dose reduction, the following was used: automated exposure c ontrol, adjustment of mA and/or kV according to patient size. COMPARISON: None. FINDINGS: Image quality: Excellent. Sinuses: Minimal scattered areas of mucosal thickening predominantly in the left ethmoid air cells. S mall mucous retention cyst versus polyp is present in the medial base of the right maxillary sinus. N o fluid levels. Ostiomeatal Complexes: Ostiomeatal complexes are patent. No Daniele cells. Miscellaneous: Visualized intra-orbital contents are normal. Left middle evin bullosa. Prominen t rightward nasal septal deviation. There is a paradoxical right middle turbinate. Turbinates are atrophied. IMPRESSION: Minimal scattered areas of mucosal thickening without fluid levels. Reviewed by: Ina Teixeira MD on 06/26/2024 6:10 PM PDT Approved by: Ina Teixeira MD on 06/26/2024 6:10 PM PDT Station ID: [id number]
== END 2024-06-26 11:05 | disposition home or self-care (01) ==
LOC: DI 11:04
PROVIDERS: ATTEND Internal Medicine
DX: J32.4 Chronic pansinusitis (principal); J30.9 Allergic rhinitis, unspecified; J32.9 Chronic sinusitis, unspecified